=== PATIENT | male | born 1945 | race Caucasian/White ===

== ENCOUNTER → 2021-10-25 | Outpatient (CLI) | payer MEDICARE, OTHER ==
--- NOTE | 2021-10-25 08:45 | CT ---
EXAMINATION TYPE: CT chest wo con DATE OF EXAM: 10/25/2021 COMPARISON: 10/31/2019 HISTORY: 76-year-old male abnormal findings on xray, h/o COPD, cough TECHNIQUE: Contiguous axial scanning of the chest without IV contrast. Coronal and sagittal reconstru ctions performed. CT DLP: 585 mGycm Automated exposure control for dose reduction was used. FINDINGS: Heart normal size with trace anterior basilar pericardial thickening. LAD and RCA coronary artery brigitte cifications are present. Aortic root is ectatic at 3.6 cm. Ascending aorta ectatic and 3.7 cm. Moderate atherosclerotic arch c alcifications with conventional arch. Branching anatomy. A few scattered nonenlarged mediastinal lymph nodes measuring up to 7 mm. Moderate to advanced centrilobular emphysema. Minimal biapical pleural parenchymal scarring. There is some patchy opacity posterior right lower lobe and additional mild scattered patchy peripheral groun dglass changes in the left lower lobe. Mild strandy secretions or debris within the right mainstem br onchus. Tiny hiatal hernia. Moderate atherosclerotic calcifications persist into the upper abdominal aorta. S pleen mildly enlarged at 14.0 cm. Bones: Osteopenia with mild degenerative disc disease. Some breathing motion artifact along the anter ior upper chest. Chronic fracture deformity surgical neck proximal right humerus. IMPRESSION: 1. COPD WITH MODERATE TO ADVANCED EMPHYSEMA. 2. MILD PATCHY AIRSPACE DISEASE POSTERIOR RIGHT BASE COULD REPRESENT DEVELOPING PNEUMONIA. 3. ALSO, PATCHY GROUNDGLASS IN THE PERIPHERY OF THE LEFT LOWER LOBE. DIFFERENTIAL CONSIDERATIONS INCL UDE MILD ASPIRATION, CHRONIC INTERSTITIAL SCARRING, OR INTERSTITIAL PNEUMONITIS SUCH NSIP OR DIP. CONSIDER FOLLOW-UP IN 3 MONTHS TO REASSESS. 4. CAD WITH LAD AND RCA CORONARY ARTERY CALCIFICATIONS.
== END | disposition home or self-care (01) ==
LOC: RADCTMAIN 06:51
PROVIDERS: ATTEND Family Medicine
DX: R93.89 Abnormal findings on diagnostic imaging of other specified body structures (principal); J43.9 Emphysema, unspecified; I25.10 Atherosclerotic heart disease of native coronary artery without angina pectoris
CPT/HCPCS: 71250

== ENCOUNTER → 2023-08-26 | Outpatient (CLI) | payer MEDICARE ==
--- NOTE | 2023-08-26 21:17 | US ---
EXAMINATION TYPE: US thyroid st tissue head/neck DATE OF EXAM: 08/26/2023 COMPARISON: NONE CLINICAL INDICATION: Male, 78 years old with history of R221 LOCALIZED SWELLING, MASS AND LUMP; 78 ye ar old said his daughter thought his neck looked swollen, no h/o thyroid issues or any medications fo r thyroid Soft tissue scan of bilateral thyroid beds yielded no thyroid tissue seen. No other abnormalities see n. IMPRESSION: 1. No suspicious ultrasound tissue. No masses are evident.
== END | disposition home or self-care (01) ==
LOC: RADUSWWP 15:24
PROVIDERS: ATTEND Family Medicine
DX: R22.1 Localized swelling, mass and lump, neck (principal)
CPT/HCPCS: 76536

== ENCOUNTER 2023-09-14 08:38 | Inpatient (IN) | payer MEDICARE ==
[2023-09-14] MEDS: SODIUM CHLORIDE 0.9% 1,000 ML IV STA (08:58)
[2023-09-14] MEDS: methylPREDNISolone SOD SUCCI 125 MG/2 ML VIAL IV STA (09:00)
[2023-09-14] MEDS: MAGNESIUM SULFATE-D5W PMX 1 GM in DEXTROSE/WATER 1 100ML.BAG IVPB STA (09:00)
[2023-09-14 09:19] LABS: Basophils % (A) 0 %; Eosinophils % (A) 0 %; HGB 13.5 gm/dL (13.0-17.5); Hyperchromasia Slight; Lymphocytes # (A) 0.8 k/uL (1.0-4.8); Lymphocytes % (A) 8 %; MCH 31.5 pg (25.0-35.0); MCHC 34.5 g/dL (31.0-37.0); MCV 91.3 fL (80.0-100.0); Mean Platelet Volume 8.5; Monocytes # (A) 0.4 k/uL (0-1.0); Monocytes % (A) 4 %; Neutrophils # (A) 8.8 k/uL (1.3-7.7); Neutrophils % (A) 86 %; Platelet Count 112 k/uL (150-450); Poikilocytosis Slight; RBC 4.27 m/uL (4.30-5.90); RDW 15.4 % (11.5-15.5); WBC 10.2 k/uL (3.8-10.6)
--- NOTE | 2023-09-14 09:33 | XR ---
EXAMINATION TYPE: XR chest 2V DATE OF EXAM: 09/14/2023 COMPARISON: NONE TECHNIQUE: PA and lateral views submitted. HISTORY: Shortness of breath FINDINGS: The lungs are clear and there is no pneumothorax, pleural effusion, or focal pneumonia. Heart size normal and no overt failure. Osseous structures demonstrate hypertrophic and degenerative changes of the spine. Diffuse osteopenia remote trauma to the right humerus. Arthropathy of the shoulders. Under lying COPD. Subsegmental changes left lung base. IMPRESSION: 1. COPD favor left basilar atelectasis over infiltrate.
[2023-09-14 09:34] LABS: ALT 23 U/L (4-49); AST 26 U/L (17-59); African American GFR (CKD) >90 (>60 ml/min/1.73 sqM); Albumin 3.5 g/dL (3.5-5.0); Alkaline Phosphatase 83 U/L (38-126); Anion Gap 7 mmol/L; Blood Urea Nitrogen 32 mg/dL (9-20); Calcium 8.5 mg/dL (8.4-10.2); Carbon Dioxide 27 mmol/L (22-30); Chloride 103 mmol/L (98-107); Glucose 92 mg/dL (74-99); Magnesium 1.9 mg/dL (1.6-2.3); Non-African American GFR(CKD) 86 (>60 ml/min/1.73 sqM); Potassium 3.5 mmol/L (3.5-5.1); Sodium 137 mmol/L (137-145); Total Bilirubin 1.5 mg/dL (0.2-1.3)
[2023-09-14 09:41] LABS: INR 0.9 (<1.2); NT-Pro-B-Type Natriuretic Pept 1050 pg/mL; Prothrombin Time 10.5 sec (10.0-12.5)
[2023-09-14 10:02] LABS: Partial Thromboplastin Time 21.5 sec (22.0-30.0)
[2023-09-14] MEDS ORDERED: PNEUMONIA PROTOCOL UTILIZED 1 EACH MISC PO PRN (10:14)
[2023-09-14] MEDS ORDERED: NALOXONE 0.4 MG/ML 1 ML VIAL IV PRN (10:21)
[2023-09-14] MEDS ORDERED: ACETAMINOPHEN TAB 325 MG TAB PO PRN (10:21)
--- NOTE | 2023-09-14 10:21 | ED ---
General Adult HPI - General Chief complaint: Shortness of Breath Stated complaint: SOB Time Seen by Provider: 09/14/23 08:45 Source: patient, EMS, RN notes reviewed, old records reviewed Mode of arrival: EMS Limitations: no limitations - History of Present Illness Initial comments: Patient is an 78-year-old male who presents emergency department complaining of chronic exertional dyspnea, sudden worsening shortness of breath this morning. Has a chronic cough. No worsening production. Denies chest pain, abdominal pain, nausea, vomiting. Has a history of COPD on chronic 3 L nasal cannula. EMS was called this morning for evaluation was found to be saturating the 70%'s by his daughter. Increased shortness of breath. Was brought here for further evaluation. The patient is saturating well on his baseline 3 L nasal cannula. Did receive 2 DuoNeb's prior to arrival. Is resting comfortably. Presents for further evaluation. - Related Data Home Medications Medication Instructions Recorded Confirmed predniSONE 5 mg PO DAILY 08/14/15 09/14/23 Albuterol Nebulized [Ventolin 2.5 mg INHALATION RT-QID 09/14/23 09/14/23 Nebulized] Albuterol Sulfate [Albuterol 2 puff PO RT-Q4H PRN 09/14/23 09/14/23 Sulfate Hfa] Budesonide/Formoterol Fumarate 2 puff INHALATION RT-BID 09/14/23 09/14/23 [Symbicort 160-4.5 Mcg Inhaler] Ipratropium Nebulized [Atrovent 0.5 mg INHALATION RT-QID 09/14/23 09/14/23 Nebulized 0.2 MG/ML] Tamsulosin HCl [Flomax] 0.4 mg PO BID 09/14/23 09/14/23 atenoloL 25 mg PO BID 09/14/23 09/14/23 metFORMIN HCL [Glucophage] 500 mg PO BID 09/14/23 09/14/23 Allergies Allergy/AdvReac Type Severity Reaction Status Date / Time No Known Allergies Allergy Verified 09/14/23 10:58 Review of Systems ROS Statement: Those systems with pertinent positive or pertinent negative responses have been documented in the HPI. Review of Systems: CONST: Denies fever EYES: Denies blurry vision ENT: Denies nasal congestion C/V: Denies Chest pain RESP: Endorses cough, shortness of breath GI: Denies abdominal pain : Denies dysuria SKIN: Denies rash. MSK: Denies joint pain. NEURO: Denies headache ROS Other: All systems not noted in ROS Statement are negative. Past Medical History Past Medical History: COPD, Hypertension Additional Past Medical History / Comment(s): HOME 02 2 l prnMUR[facility](WHEN PT WAS IN HIGH SCHOOL),"HEAT STROKE" History of Any Multi-Drug Resistant Organisms: None Reported Past Surgical History: No Surgical Hx Reported Additional Past Surgical History / Comment(s): NO REPORTED SX. Past Anesthesia/Blood Transfusion Reactions: No Reported Reaction Past Psychological History: Depression Smoking Status: Former smoker Past Alcohol Use History: Occasional Past Drug Use History: None Reported - Past Family History Brother(s) Family Medical History: Cancer General Exam - General Exam Comments Initial Comments: General: Appears in no acute distress. HEAD: Normal with no signs of head trauma. EYES: PERRLA, EOMI, conjunctiva normal, no discharge. ENT: Hearing grossly intact, normal oropharynx. RESPIRATORY: Bilateral end expiratory wheezing. Increased work of breathing. Normoxic on baseline 3 L nasal cannula of oxygen. C/V: Regular rate and rhythm. S1 and S2 auscultated, no significant peripheral edema, peripheral pulses 2+ and intact throughout ABD: Abd is soft, nontender, nondistended EXT: Normal range of motion, no obvious deformity SKIN: No rashes or lesions observed on exposed skin. NEURO: Alert and oriented x 4. Limitations: no limitations Course Vital Signs 09/14/23 09/14/23 09/14/23 08:39 09:04 10:06 Temperature 97.7 F Pulse Rate 99 93 81 Respiratory 28 H 20 17 Rate Blood Pressure 120/65 112/59 119/68 O2 Sat by Pulse 97 97 99 Oximetry 09/14/23 09/14/23 09/14/23 10:34 10:43 11:19 Temperature Pulse Rate 82 82 86 Respiratory 18 Rate Blood Pressure 124/66 O2 Sat by Pulse 99 Oximetry 09/14/23 09/14/23 09/14/23 13:49 14:05 15:05 Temperature Pulse Rate 84 85 87 Respiratory 18 Rate Blood Pressure 103/57 O2 Sat by Pulse 98 Oximetry Medical Decision Making - Medical Decision Making Was pt. sent in by a medical professional or institution (, PA, [employer], urgent care, hospital, or penitentiary...) When possible be specific @ -No Did you speak to anyone other than the patient for history (EMS, parent, family, police, friend...)? What history was obtained from this source @ -No Did you review nursing and triage notes (agree or disagree)? Why? @ -I reviewed and agree with nursing and triage notes Were old charts reviewed (outside hosp., previous admission, EMS record, old EKG, old radiological studies, urgent care reports/EKG's, penitentiary records)? Report findings @ -Old charts reviewed Differential Diagnosis (chest pain, altered mental status, abdominal pain women, abdominal pain men, vaginal bleeding, weakness, fever, dyspnea, syncope, headache, dizziness, GI bleed, back pain, seizure, CVA, palpatations, mental health, musculoskeletal)? @ -Differential Dyspnea: Coronary syndrome, arrhythmia, tamponade, asthma, COPD, pulmonary embolism, pneumonia, pneumothorax, pulmonary effusion, anaphylaxis, diabetic ketoacidosis, flailed chest, pulmonary contusion, diaphragmatic rupture, anemia, neuromuscular, this is not meant to be an all-inclusive list. EKG interpreted by me (3pts min.). @ -As above X-rays interpreted by me (1pt min.). @ -Chest x-ray reveals findings concerning for left lower lobe basilar infiltra te. CT interpreted by me (1pt min.). @ -None done U/S interpreted by me (1pt. min.). @ -None done What testing was considered but not performed or refused? (CT, X-rays, U/S, labs)? Why? @ -None What meds were considered but not given or refused? Why? @ -None Did you discuss the management of the patient with other professionals (professionals i.e. GASTON Damon, [employer], lab, RT, psych nurse, director social service, rn mds, teacher, chief scientific officer, case assistant)? Give summary @ -No Was smoking cessation discussed for >3mins.? @ -No Was critical care preformed (if so, how long)? @ -No Were there social determinants of health that impacted care today? How? (Homelessness, low income, unemployed, alcoholism, drug addiction, transportation, low edu. Level, literacy, decrease access to med. care, fdc, rehab)? @ -No Was there de-escalation of care discussed even if they declined (Discuss DNR or withdrawal of care, Hospice)? DNR status @ -No What co-morbidities impacted this encounter? (DM, HTN, Smoking, COPD, CAD, Cancer, CVA, ARF, Chemo, Hep., AIDS, mental health diagnosis, sleep apnea, morbid obesity)? @ -Chronic hypoxic respiratory failure, COPD exacerbation Was patient admitted / discharged? Hospital course, mention meds given and route, prescriptions, significant lab abnormalities, going to OR and other pertinent info. @ -Based on the patient's presentation and physical exam, presents with what appears to be COPD versus possible pneumonia, will obtain cardiopulmonary labs. Vital signs currently within acceptable limits on his baseline 3 L nasal cannula. Patient was in agreement this plan. He will be symptomatically treated with IV steroids, breathing treatments. Chest x-ray shows findings concerning for left lower lobe pneumonia. Labs remarkable for slightly elevated troponin of 0.088 likely secondary to underlying COPD. BNP within acceptable limits. Viral swabs within acceptable limits. EKG shows no signs of acute ischemia. Reevaluation, patient is resting comfortably at this time. We did discuss his workup. He will be started on antibiotics for pneumonia. Blood culture sent. He will be admitted for cardiology evaluation as well as pulmonology evaluation. Will continue with breathing treatments IV steroids. Patient was in agreement this plan. I discussed the case with the admitting team, Dr. Chanel of [facility] who accepted the admission. Undiagnosed new problem with uncertain prognosis? @ -No Drug Therapy requiring intensive monitoring for toxicity (Heparin, Nitro, Insulin, Cardizem)? @ -No Were any procedures done? @ -No Diagnosis/symptom? @ -COPD, pneumonia, elevated troponin Acute, or Chronic, or Acute on Chronic? @ -Acute Uncomplicated (without systemic symptoms) or Complicated (systemic symptoms)? @ -Complicated Side effects of treatment? @ -No Exacerbation, Progression, or Severe Exacerbation? @ -No Poses a threat to life or bodily function? How? (Chest pain, [place], [place], pneumonia, PE, COPD, DKA, ARF, appy, cholecystitis, CVA, Diverticulitis, Homicidal, Suicidal, threat to staff... and all critical care pts) @ -Yes - Lab Data Result diagrams: 09/14/23 09:04 05/06/24 09:04 Lab Results 09/14/23 09/14/23 09/14/23 Range/Units 09:04 09:04 09:04 WBC 10.2 (3.8-10.6) k/uL RBC 4.27 L (4.30-5.90) m/uL Hgb 13.5 (13.0-17.5) gm/dL Hct 39.0 (39.0-53.0) % MCV 91.3 (80.0-100.0) fL MCH 31.5 (25.0-35.0) pg MCHC 34.5 (31.0-37.0) g/dL RDW 15.4 (11.5-15.5) % Plt Count 112 L (150-450) k/uL MPV 8.5 Neutrophils % 86 % Lymphocytes % 8 % Monocytes % 4 % Eosinophils % 0 % Basophils % 0 % Neutrophils # 8.8 H (1.3-7.7) k/uL Lymphocytes # 0.8 L (1.0-4.8) k/uL Monocytes # 0.4 (0-1.0) k/uL Eosinophils # 0.0 (0-0.7) k/uL Basophils # 0.0 (0-0.2) k/uL Hyperchromasia Slight Poikilocytosis Slight PT 10.5 (10.0-12.5) sec INR 0.9 (<1.2) APTT 21.5 L (22.0-30.0) sec Sodium 137 (137-145) mmol/L Potassium 3.5 (3.5-5.1) mmol/L Chloride 103 (98-107) mmol/L Carbon Dioxide 27 (22-30) mmol/L Anion Gap 7 mmol/L BUN 32 H (9-20) mg/dL Creatinine 0.78 (0.66-1.25) mg/dL Est GFR (CKD-EPI)AfAm >90 (>60 ml/min/1.73 sqM) Est GFR (CKD-EPI)NonAf 86 (>60 ml/min/1.73 sqM) Glucose 92 (74-99) mg/dL Calcium 8.5 (8.4-10.2) mg/dL Magnesium 1.9 (1.6-2.3) mg/dL Total Bilirubin 1.5 H (0.2-1.3) mg/dL AST 26 (17-59) U/L ALT 23 (4-49) U/L Alkaline Phosphatase 83 (38-126) U/L Troponin I (0.000-0.034) ng/mL NT-Pro-B Natriuret Pep 1050 pg/mL Total Protein 6.0 L (6.3-8.2) g/dL Albumin 3.5 (3.5-5.0) g/dL Influenza Type A (PCR) (Not Detectd) Influenza Type B (PCR) (Not Detectd) RSV (PCR) (Not Detectd) SARS-CoV-2 (PCR) (Not Detectd) 09/14/23 09/14/23 Range/Units 09:04 09:04 WBC (3.8-10.6) k/uL RBC (4.30-5.90) m/uL Hgb (13.0-17.5) gm/dL Hct (39.0-53.0) % MCV (80.0-100.0) fL MCH (25.0-35.0) pg MCHC (31.0-37.0) g/dL RDW (11.5-15.5) % Plt Count (150-450) k/uL MPV Neutrophils % % Lymphocytes % % Monocytes % % Eosinophils % % Basophils % % Neutrophils # (1.3-7.7) k/uL Lymphocytes # (1.0-4.8) k/uL Monocytes # (0-1.0) k/uL Eosinophils # (0-0.7) k/uL Basophils # (0-0.2) k/uL Hyperchromasia Poikilocytosis PT (10.0-12.5) sec INR (<1.2) APTT (22.0-30.0) sec Sodium (137-145) mmol/L Potassium (3.5-5.1) mmol/L Chloride (98-107) mmol/L Carbon Dioxide (22-30) mmol/L Anion Gap mmol/L BUN (9-20) mg/dL Creatinine (0.66-1.25) mg/dL Est GFR (CKD-EPI)AfAm (>60 ml/min/1.73 sqM) Est GFR (CKD-EPI)NonAf (>60 ml/min/1.73 sqM) Glucose (74-99) mg/dL Calcium (8.4-10.2) mg/dL Magnesium (1.6-2.3) mg/dL Total Bilirubin (0.2-1.3) mg/dL AST (17-59) U/L ALT (4-49) U/L Alkaline Phosphatase (38-126) U/L Troponin I 0.088 H* (0.000-0.034) ng/mL NT-Pro-B Natriuret Pep pg/mL Total Protein (6.3-8.2) g/dL Albumin (3.5-5.0) g/dL Influenza Type A (PCR) Not Detected (Not Detectd) Influenza Type B (PCR) Not Detected (Not Detectd) RSV (PCR) Not Detected (Not Detectd) SARS-CoV-2 (PCR) Not Detected (Not Detectd) - EKG Data -: EKG Interpreted by Me EKG Comments: 12-lead Electrocardiogram Interpretation Note EKG was reviewed and interpreted by myself. 12-lead ECG performed at 0847 is interpreted by me as revealing normal sinus rhythm at a rate of 95 beats per minute. Incomplete right bundle branch block. [place] is normal. AL interval is 138 ms, QRS duration is 114 ms, QTc is 407 ms.. There were no ST or T wave abnormalities to suggest myocardial ischemia or injury. R wave progression across the precordium was satisfactory. By my interpretation this EKG is non- diagnostic for acute ischemia. Disposition Clinical Impression: COPD (chronic obstructive pulmonary disease), Pneumonia, Elevated troponin Disposition: ADMITTED IP TO THIS HOSP Condition: Stable Time of Disposition: 10:21
[2023-09-14] MEDS: IPRATROPIUM-ALBUTEROL 3 ML NEB INHALATION STA (10:30)
[2023-09-14] MEDS: SODIUM CHLORIDE 0.9% 1,000 ML IV SCH (10:39)
[2023-09-14] MEDS: ASPIRIN 81 MG PO STA (10:40)
[2023-09-14] MEDS: AZITHROMYCIN 500 MG in SODIUM CHLORIDE 0.9% 250 ML IVPB STA (11:18)
[2023-09-14] MEDS ORDERED: NALOXONE 0.4 MG/ML 1 ML VIAL IVP PRN ×2 (11:38→11:39)
[2023-09-14] MEDS ORDERED: NITROGLYCERIN SL TABS 0.4 MG TAB SUBLINGUAL PRN (11:39)
[2023-09-14] MEDS: ATORVASTATIN 80 MG TAB PO SCH (12:00)
[2023-09-14 13:16] LABS: Appearance,Urine Cloudy (Clear); Bilirubin,Urine Negative (Negative); Blood,Urine Trace (Negative); Color,Urine Yellow; Glucose,Urine (UA) Negative (Negative); Ketones,Urine 1+ (Negative); Leukocyte Esterase,Urine Large (Negative); Mucus,Urine Rare /hpf; Nitrite,Urine Negative (Negative); PH, Urine 5.5 (5.0-8.0); Protein,Urine Trace (Negative); RBC,Urine 1 /hpf (0-5); Specific Gravity,Urine 1.023 (1.001-1.035); Squamous Epithelial Cell,Urine 1 /hpf (0-4); Urobilinogen,Urine <2.0 mg/dL (<2.0); WBC,Urine 56 /hpf (0-5)
[2023-09-14] MEDS: IPRATROPIUM-ALBUTEROL 3 ML NEB INHALATION PRN (13:49)
--- NOTE | 2023-09-14 14:15 | P.CNPUL ---
History of Present Illness Consult date: 09/14/23 Requesting physician: Jeremy Chanel Reason for consult: dyspnea, COPD, hypoxemia Chief complaint: Shortness of breath History of present illness: This is an 78-year-old male patient with a known history of chronic obstructive pulmonary disease, former smoker, hypertension, depression, diabetes mellitus, on home oxygen at 3 L nasal cannula. Who presented to the emergency room earlier this morning with complaints of increasing shortness of breath, cough and congestion over the past 2 weeks. He also has dyspnea on exertion. His O2 saturations were in the 70s by his daughter and EMS was called. He is seen today in consultation in the emergency department. Currently sitting up on a s tretcher. Awake and alert in no acute distress. He is maintaining O2 saturations up to 99% on 3 L/min per nasal cannula. He has been afebrile. Hemodynamically stable. X-ray of reveals evidence of COPD and left basilar atelectasis. White count 10.2. Hemoglobin 13.5. Platelets 112. Sodium 137. Potassium 3.5. Bicarb 27. BUN 32. Creatinine 0.78. Troponin 0.088, 0.071. proBNP 1050. Viral screen negative. Review of Systems REVIEW OF SYSTEMS: CONSTITUTIONAL: Denies any recent significant weight loss or weight gain. EYES: Denies change in vision. EARS, NOSE, MOUTH, THROAT: Denies headaches, denies sore throat. CARDIOVASCULAR: Denies chest pain, palpitations or syncopal episodes. RESPIRATORY: Positive for shortness of breath, cough, congestion no hemoptysis. GASTROINTESTINAL: Denies change in appetite, denies abdominal pain GENITOURINARY: Denies hematuria, denies infections. MUSKULOSKELETAL: Denies pain, denies swelling. INTEGUMENTARY: Denies rash, denies eczema. NEUROLOGICAL: Denies recent memory loss, no recent seizure activity. PSYCHIATRIC: Denies anxiety, denies depression. HEMATOLOGIC/LYMPHATIC: Denies anemia, denies enlarged lymph nodes. Past Medical History Past Medical History: COPD, Hypertension Additional Past Medical History / Comment(s): HOME 02 2 l prnM[facility](WHEN PT WAS IN HIGH SCHOOL),"HEAT STROKE" 1970 History of Any Multi-Drug Resistant Organisms: None Reported Past Surgical History: No Surgical Hx Reported Additional Past Surgical History / Comment(s): NO REPORTED SX. Past Anesthesia/Blood Transfusion Reactions: No Reported Reaction Past Psychological History: Depression Smoking Status: Former smoker Past Alcohol Use History: Occasional Past Drug Use History: None Reported - Past Family History Brother(s) Family Medical History: Cancer Medications and Allergies Home Medications Medication Instructions Recorded Confirmed Type predniSONE 5 mg PO DAILY 08/14/15 09/14/23 History Albuterol Nebulized [Ventolin 2.5 mg INHALATION RT-QID 09/14/23 09/14/23 History Nebulized] Albuterol Sulfate [Albuterol 2 puff PO RT-Q4H PRN 09/14/23 09/14/23 History Sulfate Hfa] Budesonide/Formoterol Fumarate 2 puff INHALATION RT-BID 09/14/23 09/14/23 History [Symbicort 160-4.5 Mcg Inhaler] Ipratropium Nebulized [Atrovent 0.5 mg INHALATION RT-QID 09/14/23 09/14/23 History Nebulized 0.2 MG/ML] Tamsulosin HCl [Flomax] 0.4 mg PO BID 09/14/23 09/14/23 History atenoloL 25 mg PO BID 09/14/23 09/14/23 History metFORMIN HCL [Glucophage] 500 mg PO BID 09/14/23 09/14/23 History Allergies Allergy/AdvReac Type Severity Reaction Status Date / Time No Known Allergies Allergy Verified 09/14/23 10:58 Physical Exam Vitals: Vital Signs Temp Pulse Resp BP Pulse Ox 09/14/23 14:05 85 09/14/23 13:49 84 09/14/23 11:19 86 18 124/66 99 09/14/23 10:43 82 09/14/23 10:34 82 09/14/23 10:06 81 17 119/68 99 09/14/23 09:04 93 20 112/59 97 09/14/23 08:39 97.7 F 99 28 H 120/65 97 Intake and Output 09/13/23 09/14/23 09/14/23 22:59 06:59 14:59 Other: Weight 61.235 kg GENERAL EXAM: Alert, 78-year-old male patient on 3 L nasal cannula, comfortable in no apparent distress. HEAD: Normocephalic. EYES: Normal reaction of pupils, equal size. NOSE: Clear with pink turbinates. THROAT: No erythema or exudates. NECK: No masses, no JVD. CHEST: No chest wall deformity. LUNGS: Equal air entry with bilateral end expiratory wheeze, few scattered rhonchi. CVS: S1 and S2 normal with no audible murmur, regular rhythm. ABDOMEN: No hepatosplenomegaly, normal bowel sounds, no guarding or rigidity. SPINE: No scoliosis or deformity SKIN: No rashes CENTRAL NERVOUS SYSTEM: No focal deficits, tone is normal in all 4 extremities. EXTREMITIES: There is no peripheral edema. No clubbing, no cyanosis. Peripheral pulses are intact. Results - Laboratory Findings CBC and BMP: 09/14/23 09:04 09/14/23 09:04 PT/INR, D-dimer PT 10.5 sec (10.0-12.5) 09/14/23 09:04 INR 0.9 (<1.2) 09/14/23 09:04 Abnormal lab findings: Abnormal Labs 09/14/23 09/14/23 09/14/23 09:04 09:04 09:04 RBC 4.27 L Plt Count 112 L Neutrophils # 8.8 H Lymphocytes # 0.8 L APTT 21.5 L BUN 32 H Total Bilirubin 1.5 H Troponin I Total Protein 6.0 L Urine Protein Urine Ketones Urine Blood Ur Leukocyte Esterase Urine WBC Urine Mucus 09/14/23 09/14/23 09/14/23 09:04 11:35 12:39 RBC Plt Count Neutrophils # Lymphocytes # APTT BUN Total Bilirubin Troponin I 0.088 H* 0.071 H* Total Protein Urine Protein Trace H Urine Ketones 1+ H Urine Blood Trace H Ur Leukocyte Esterase Large H Urine WBC 56 H Urine Mucus Rare H - Diagnostic Findings Chest x-ray: image reviewed Assessment and Plan Assessment: Acute on chronic hypoxic respiratory failure secondary to an acute exacerbation of chronic obstructive pulmonary disease. Chest x-ray reveals some atelectatic changes in the left lung base. Procalcitonin pending. Viral screen negative. Former smoker Oxygen dependent, steroid-dependent COPD Diabetes mellitus Hypertension Plan: The patient was seen and evaluated Chest x-ray, labs and medications reviewed Continue DuoNeb inhalations, Symbicort, prednisone taper Continue antibiotics for now Check a procalcitonin Heparin for DVT prophylaxis We will continue to follow and make further recommendations based on his clinical status I have personally seen and examined the patient, performed the documentation and the assessment and plan as written. Number of minutes spent on the visit: 20.
--- NOTE | 2023-09-14 18:05 | P.HPIM ---
History of Present Illness H&P Date: 09/14/23 Chief Complaint: dyspnea on exertion 78-year-old male with medical history of COPD with chronic respiratory failure requiring 3 to 4 L nasal cannula, diabetes, BPH presented for evaluation of dyspnea. Patient says that for the last 2 weeks she has had worsening shortness of breath, especially during exertion. Additionally, in the last 2 months he has had a 20 pound weight loss unintentionally. Patient denies any chest pain associated with shortness of breath. He denies palpitations. He does report to me that he has been seen outpatient by cardiology for workup of heart disease, and underwent stress testing, which she does not know the results. Patient follows with pulmonology for COPD and has remained stable on his home nebulizers. Today, he denies fevers, chills, nausea, vomiting, chest pain, palpitations, syncope, presyncope, myalgias, numbness/weakness of extremities. In the emergency room, patient was afebrile 120/65, heart rate 99, breathing at a rate of 28, 97% on 3 L nasal cannula. CBC shows thrombocytopenia down to 112, otherwise unremarkable. Basic metabolic panel is notable for elevated BUN at 32, normal creatinine. Liver function test show mildly elevated total bilirubin of 1.5. Initial troponin is 0.088 then trended to 0.071 then trended to 0.074. UA shows trace protein, 1+ glucose, trace ketones, large leukocyte esterase, 56 white blood cells. Influenza A, B, RSV, COVID were negative. Coags are unremarkable. Chest x-ray shows creased vascularity bilaterally, especially in a reticular pattern, fluid in the minor fissure on the right side normal-sized heart. EKG demonstrated sinus rhythm with evidence of right bundle mariel block. Case was discussed with the emergency room provider and the decision was made to meet the patient to the hospital for further management of COPD exacerbation versus heart failure. All Systems reviewed and pertinent positives and negatives noted in HPI, all other symptoms are negative Gen: in no apparent distress, resting comfortably in bed Eyes: PERRL, no scleral injection or icterus HENT: normocephalic, atraumatic, good hearing acuity, moist mucous membranes Neck: no tracheal deviation, full range of motion Resp: Bilateral wheezing, especially at the end of expiration, crackles in the bases bilaterally, and up to mid chest on the right CVS: good distal perfusion x 4, no pitting edema GI: soft, NTTP, ND, no hepatosplenomegaly : no suprapubic tenderness, no CVAT, flores catheter not present MSK: no clubbing, no cyanosis, no noted contractures of extremities Skin: no noted rashes, petechiae; temperature of skin is appropriate Neuro: moving all extremities without signs of weakness, CN II-XII intact Psych: cooperative, euthymic mood, insight and judgment intact Labs and imaging as above Assessment/plan: Acute on chronic hypoxemic respiratory failure COPD exacerbation Elevated BNP Elevated troponin -Patient was admitted as an inpatient with telemetry -Cardiology was consulted, evaluation of ACS -Aspirin, atorvastatin, metoprolol was started: Home atenolol was held -Troponins were trended and remained flat -TSH, lipid panel, A1c were added on to a.m. lab work -Echocardiogram order was placed -DuoNebs [id number] with additional as needed medication -Prednisone 40 mg daily -Pulmonology was consulted -Ceftriaxone/azithromycin was initiated with procalcitonin pending for early de- escalation Diabetes type 2 BPH -Home medications reviewed and reconciled Patient is DNR/DNI Past Medical History Past Medical History: COPD, Hypertension Additional Past Medical History / Comment(s): HOME 02 2 l prnMURMUR(WHEN PT WAS IN HIGH SCHOOL),"HEAT STROKE" 1970 History of Any Multi-Drug Resistant Organisms: None Reported Past Surgical History: No Surgical Hx Reported Additional Past Surgical History / Comment(s): NO REPORTED SX. Past Anesthesia/Blood Transfusion Reactions: No Reported Reaction Past Psychological History: Depression Smoking Status: Former smoker Past Alcohol Use History: Occasional Past Drug Use History: None Reported - Past Family History Brother(s) Family Medical History: Cancer Medications and Allergies Home Medications Medication Instructions Recorded Confirmed Type predniSONE 5 mg PO DAILY 08/14/15 09/14/23 History Albuterol Nebulized [Ventolin 2.5 mg INHALATION RT-QID 09/14/23 09/14/23 History Nebulized] Albuterol Sulfate [Albuterol 2 puff PO RT-Q4H PRN 09/14/23 09/14/23 History Sulfate Hfa] Budesonide/Formoterol Fumarate 2 puff INHALATION RT-BID 09/14/23 09/14/23 History [Symbicort 160-4.5 Mcg Inhaler] Ipratropium Nebulized [Atrovent 0.5 mg INHALATION RT-QID 09/14/23 09/14/23 History Nebulized 0.2 MG/ML] Tamsulosin HCl [Flomax] 0.4 mg PO BID 09/14/23 09/14/23 History atenoloL 25 mg PO BID 09/14/23 09/14/23 History metFORMIN HCL [Glucophage] 500 mg PO BID 09/14/23 09/14/23 History Allergies Allergy/AdvReac Type Severity Reaction Status Date / Time No Known Allergies Allergy Verified 09/14/23 10:58 Physical Exam Osteopathic Statement: *. No significant issues noted on an osteopathic structural exam other than those noted in the History and Physical/Consult. Vitals: Vital Signs Temp Pulse Resp BP Pulse Ox 09/14/23 15:05 87 18 103/57 98 09/14/23 14:05 85 09/14/23 13:49 84 09/14/23 11:19 86 18 124/66 99 09/14/23 10:43 82 09/14/23 10:34 82 09/14/23 10:06 81 17 119/68 99 09/14/23 09:04 93 20 112/59 97 09/14/23 08:39 97.7 F 99 28 H 120/65 97 Intake and Output 09/14/23 09/14/23 09/14/23 06:59 14:59 22:59 Other: Weight 61.235 kg Results CBC & Chem 7: 09/14/23 09:04 09/14/23 09:04 Labs: Abnormal Lab Results - Last 24 Hours (Table) 09/14/23 09/14/23 09/14/23 Range/Units 09:04 09:04 09:04 RBC 4.27 L (4.30-5.90) m/uL Plt Count 112 L (150-450) k/uL Neutrophils # 8.8 H (1.3-7.7) k/uL Lymphocytes # 0.8 L (1.0-4.8) k/uL APTT 21.5 L (22.0-30.0) sec BUN 32 H (9-20) mg/dL Total Bilirubin 1.5 H (0.2-1.3) mg/dL Troponin I (0.000-0.034) ng/mL Total Protein 6.0 L (6.3-8.2) g/dL Urine Protein (Negative) Urine Ketones (Negative) Urine Blood (Negative) Ur Leukocyte Esterase (Negative) Urine WBC (0-5) /hpf Urine Mucus (None) /hpf 09/14/23 09/14/23 09/14/23 Range/Units 09:04 11:35 12:39 RBC (4.30-5.90) m/uL Plt Count (150-450) k/uL Neutrophils # (1.3-7.7) k/uL Lymphocytes # (1.0-4.8) k/uL APTT (22.0-30.0) sec BUN (9-20) mg/dL Total Bilirubin (0.2-1.3) mg/dL Troponin I 0.088 H* 0.071 H* (0.000-0.034) ng/mL Total Protein (6.3-8.2) g/dL Urine Protein Trace H (Negative) Urine Ketones 1+ H (Negative) Urine Blood Trace H (Negative) Ur Leukocyte Esterase Large H (Negative) Urine WBC 56 H (0-5) /hpf Urine Mucus Rare H (None) /hpf 09/14/23 Range/Units 14:12 RBC (4.30-5.90) m/uL Plt Count (150-450) k/uL Neutrophils # (1.3-7.7) k/uL Lymphocytes # (1.0-4.8) k/uL APTT (22.0-30.0) sec BUN (9-20) mg/dL Total Bilirubin (0.2-1.3) mg/dL Troponin I 0.074 H* (0.000-0.034) ng/mL Total Protein (6.3-8.2) g/dL Urine Protein (Negative) Urine Ketones (Negative) Urine Blood (Negative) Ur Leukocyte Esterase (Negative) Urine WBC (0-5) /hpf Urine Mucus (None) /hpf
[2023-09-14] MEDS: SYMBICORT 160-4.5 MCG INHALER INHALATION SCH (20:09)
[2023-09-14] MEDS ORDERED: methylPREDNISolone SOD SUCCI 40 MG/ML 1 ML VIAL IV SCH (21:00)
[2023-09-14] MEDS: HEPARIN SODIUM,PORCINE 5,000 UNIT/ML 1 ML VIAL SQ SCH (21:49)
[2023-09-14] MEDS: TAMSULOSIN 0.4 MG CAP.ER.24H PO SCH (21:49)
[2023-09-14] MEDS: METOPROLOL TARTRATE 12.5 MG TAB PO SCH (21:49)
[2023-09-15 04:05] LABS: Magnesium 2.3 mg/dL (1.6-2.3)
[2023-09-15 04:07] LABS: ALT 23 U/L (4-49); AST 27 U/L (17-59); African American GFR (CKD) >90 (>60 ml/min/1.73 sqM); Albumin 2.7 g/dL (3.5-5.0); Alkaline Phosphatase 72 U/L (38-126); Anion Gap 8 mmol/L; Blood Urea Nitrogen 28 mg/dL (9-20); Calcium 7.7 mg/dL (8.4-10.2); Carbon Dioxide 20 mmol/L (22-30); Chloride 107 mmol/L (98-107); Glucose 158 mg/dL (74-99); Non-African American GFR(CKD) >90 (>60 ml/min/1.73 sqM); Sodium 135 mmol/L (137-145); Total Bilirubin 0.6 mg/dL (0.2-1.3); Total Protein 4.9 g/dL (6.3-8.2)
[2023-09-15 04:23] LABS: Basophils % (A) 0 %; Eosinophils % (A) 1 %; HCT 31.6 % (39.0-53.0); HGB 11.1 gm/dL (13.0-17.5); Lymphocytes # (A) 0.4 k/uL (1.0-4.8); Lymphocytes % (A) 9 %; MCH 32.4 pg (25.0-35.0); MCHC 35.3 g/dL (31.0-37.0); MCV 91.9 fL (80.0-100.0); Mean Platelet Volume 9.1; Monocytes # (A) 0.2 k/uL (0-1.0); Monocytes % (A) 4 %; Neutrophils # (A) 4.1 k/uL (1.3-7.7); Neutrophils % (A) 86 %; Poikilocytosis Slight; RBC 3.44 m/uL (4.30-5.90); RDW 15.1 % (11.5-15.5); WBC 4.8 k/uL (3.8-10.6)
[2023-09-15 04:24] LABS: Platelet Count 83 k/uL (150-450)
[2023-09-15 06:05] LABS: T4, Free (Free Thyroxine) 1.07 ng/dL (0.78-2.19)
--- NOTE | 2023-09-15 07:48 | XR ---
EXAMINATION TYPE: XR chest 1V DATE OF EXAM: 09/15/2023 COMPARISON: 09/14/2023 HISTORY: Pneumonia TECHNIQUE: Single frontal view of the chest is obtained. FINDINGS: No pneumothorax. There is a small bilateral pleural effusion.. Heart size normal and no ove rt failure. Osseous structures demonstrate hypertrophic and degenerative changes of the spine. Diffus e osteopenia remote trauma to the right humerus. Arthropathy of the shoulders. Underlying COPD. Subse gmental changes left lung base. IMPRESSION: 1. COPD favor left basilar atelectasis over infiltrate. Interstitial changes may represent chronic adonay ng disease rather than interstitial pneumonitis or venous congestion or
[2023-09-15] MEDS ORDERED: DEXTROSE 50% SYRINGE 50 ML IVP PRN ×2 (08:30)
[2023-09-15] MEDS: ASPIRIN 81 MG PO SCH (09:24)
[2023-09-15] MEDS: AZITHROMYCIN 500 MG TAB PO SCH (09:24)
[2023-09-15] MEDS: predniSONE 20 MG TAB PO SCH (09:24)
[2023-09-15] MEDS: POTASSIUM CHLORIDE ER 20 MEQ TAB.ER PO STA (09:30)
[2023-09-15 09:51] LABS: Chol/HDL Ratio 4.17 Ratio; LDL Cholesterol,Calculated 109.5 mg/dL (0.0-131.0); VLDL Calculation 18.98 mg/dL (5.00-40.00)
[2023-09-15 12:18] LABS: Glucose,Whole Blood 183 mg/dL (70-110)
--- NOTE | 2023-09-15 12:32 | P.CRDCN ---
History of Present Illness Consult date: 09/15/23 Reason for Consult (text): Elevated troponin History of present illness: History of present illness: This is an 86-year-old male patient of Dr. Joseph with past medical history of coronary artery disease based on CT scan, hypertension, dyslipidemia, remote history of tobacco use and dependence, chronic obstructive pulmonary disease, diabetes, chronic hypoxic respiratory failure on home O2 at 3 L. We have been asked to evaluate the patient for elevated troponins. Patient presented to the emergency center due to increasing shortness of breath, cough, congestion that had worsened over the past 1 month and he states that he is "just sick of it." He also has dyspnea on exertion especially with walking no more than 50 feet for several months. His daughter states that he has significant dyspnes with walking 10 feet and seems to be progressing. He denies chest pain at this time and no chest pain with exertion. He states inhalers do not help his symptoms. No fever or chills. + sneezing. His pulse ox at home was in the 70s. Patient is seen today in the emergency center waiting for a bed on the cardiac stepdown unit. He has been started on aspirin, atorvastatin, and Lopressor versus atenolol. EKG sinus rhythm with incomplete right bundle branch block. Chest x-ray: 09/14: COPD. Left basilar atelectasis vs infiltrate. Interstitial changes may represent chronic lung disease rather than interstitial pneumonitis or venous congestion. WBC 4.8, hemoglobin 9.1, platelet count 83. Sodium 135, potassium 3, BUN 28 creatinine 0.68, CO2 20. Blood sugar 158. Troponins 0.088, 0.071 and 0.074. TSH 0.141 with normal free T41.07. Urinalysis large amount of leukoesterase, WBCs 56. Procalcitonin 0.22. Home cardiac medications: Atenolol 25 mg twice daily. Lexiscan Cardiolite stress test performed 02/17/2022 in the office revealed non diagnostic electrocardiographic stress testing response to Lexiscan. Normal myocardial perfusion imaging. No evidence of any stress-induced ischemia. Hyperdynamic left ventricle. Echocardiogram performed on 02/17/2022 in the office revealed EF 50 to 55%. Mild concentric left ventricular hypertrophy. Aortic valve is calcified. Mild mitral regurgitation, mild tricuspid regurgitation. Pulmonary artery systolic pressure of 35 mmHg. Review Of Systems: At the time of my exam: CONSTITUTIONAL: Denies fever or chills. HEENT: Denies blurred vision, vision changes, or eye pain. Denies hemoptysis CARDIOVASCULAR: Denies chest pain. Denies orthopnea. Denies PND. Denies palpitations RESPIRATORY: Reports shortness of breath. + CHATMAN GASTROINTESTINAL: Denies abdominal pain. Denies nausea or vomiting. HEMATOLOGIC: Denies bleeding disorders. GENITOURINARY: Denies any blood in urine. SKIN: Denies pruitis. Denies rash. Physical examination: Gen: This is an 78-year-old male in no acute distress VS: reviewed, blood pressure 109/60, pulse ox 98% on 3 L, heart rate 90. HEENT: Head is atraumatic, normocephalic. Pupils equal, round. Sclerae is anicteric. NECK: Supple. No JVD. LUNGS: Clear to auscultation. No wheezes or rhonchi. No intercostal retractions. HEART: Regular rate and rhythm. Systolic murmur. ABDOMEN: Soft No tenderness. EXTREMITIES: No pedal edema. No calf tenderness. NEUROLOGICAL: Patient is awake, alert and oriented x3. Assessment: Elevated troponin of unclear significance r/o coronary artery disease Acute on chronic hypoxic respiratory failure secondary to COPD exacerbation Bicytopenia with thrombocytopenia and anemia Possible urinary tract infection History of coronary artery disease on CT scan and negative Lexiscan stress test Hypertension Dyslipidemia Remote history of tobacco use and dependence Diabetes mellitus type 2 Plan: Continue current cardiac medications: Aspirin, atorvastatin, Lopressor Obtain 2-D echocardiogram and Doppler study to assess cardiac structure and function Recommend cardiac catheterization most likely will be scheduled later today or tomorrow, following discussion with Dr. Joseph Further recommendations to follow based upon clinical course Thank you kindly for this consultation. Nurse practitioner note has been reviewed, I agree with documented findings and plan of care. Patient was seen and examined. Past Medical History Past Medical History: COPD, Hypertension Additional Past Medical History / Comment(s): HOME 02 2 l prnMURMUR(WHEN PT WAS IN HIGH SCHOOL),"HEAT STROKE" 1970' History of Any Multi-Drug Resistant Organisms: None Reported Past Surgical History: No Surgical Hx Reported Additional Past Surgical History / Comment(s): NO REPORTED SX. Past Anesthesia/Blood Transfusion Reactions: No Reported Reaction Past Psychological History: Depression Smoking Status: Former smoker Past Alcohol Use History: Occasional Past Drug Use History: None Reported - Past Family History Brother(s) Family Medical History: Cancer Medications and Allergies Home Medications Medication Instructions Recorded Confirmed Type predniSONE 5 mg PO DAILY 08/14/15 09/14/23 History Albuterol Nebulized [Ventolin 2.5 mg INHALATION RT-QID 09/14/23 09/14/23 History Nebulized] Albuterol Sulfate [Albuterol 2 puff PO RT-Q4H PRN 09/14/23 09/14/23 History Sulfate Hfa] Budesonide/Formoterol Fumarate 2 puff INHALATION RT-BID 09/14/23 09/14/23 History [Symbicort 160-4.5 Mcg Inhaler] Ipratropium Nebulized [Atrovent 0.5 mg INHALATION RT-QID 09/14/23 09/14/23 History Nebulized 0.2 MG/ML] Tamsulosin HCl [Flomax] 0.4 mg PO BID 09/14/23 09/14/23 History atenoloL 25 mg PO BID 09/14/23 09/14/23 History metFORMIN HCL [Glucophage] 500 mg PO BID 09/14/23 09/14/23 History Allergies Allergy/AdvReac Type Severity Reaction Status Date / Time No Known Allergies Allergy Verified 09/14/23 10:58 Physical Exam Vitals: Vital Signs Temp Pulse Resp BP Pulse Ox 09/15/23 08:04 20 09/15/23 08:00 97.6 F 90 18 109/60 98 09/15/23 06:30 92 15 117/85 98 09/15/23 04:00 94 16 103/59 97 09/15/23 01:00 77 18 09/14/23 23:00 93 20 123/72 95 09/14/23 21:00 96 20 134/117 94 L 09/14/23 20:21 97 09/14/23 20:10 87 09/14/23 20:00 89 17 114/64 95 09/14/23 19:34 88 17 114/64 95 09/14/23 18:00 92 19 113/60 97 09/14/23 15:05 87 18 103/57 98 09/14/23 14:05 85 09/14/23 13:49 84 09/14/23 11:19 86 18 124/66 99 09/14/23 10:43 82 09/14/23 10:34 82 09/14/23 10:06 81 17 119/68 99 09/14/23 09:04 93 20 112/59 97 09/14/23 08:39 97.7 F 99 28 H 120/65 97 Results 09/15/23 03:25 09/15/23 03:25 Cardiac Enzymes 09/14/23 09/14/23 09/14/23 Range/Units 09:04 09:04 11:35 AST 26 (17-59) U/L Troponin I 0.088 H* 0.071 H* (0.000-0.034) ng/mL 09/14/23 09/15/23 Range/Units 14:12 03:25 AST 27 (17-59) U/L Troponin I 0.074 H* (0.000-0.034) ng/mL Coagulation 09/14/23 Range/Units 09:04 PT 10.5 (10.0-12.5) sec APTT 21.5 L (22.0-30.0) sec CBC 09/14/23 09/15/23 Range/Units 09:04 03:25 WBC 10.2 4.8 (3.8-10.6) k/uL RBC 4.27 L 3.44 L (4.30-5.90) m/uL Hgb 13.5 11.1 L (13.0-17.5) gm/dL Hct 39.0 31.6 L (39.0-53.0) % Plt Count 112 L 83 L (150-450) k/uL Comprehensive Metabolic Panel 09/14/23 09/15/23 Range/Units 09:04 03:25 Sodium 137 135 L (137-145) mmol/L Potassium 3.5 3.0 L (3.5-5.1) mmol/L Chloride 103 107 (98-107) mmol/L Carbon Dioxide 27 20 L (22-30) mmol/L BUN 32 H 28 H (9-20) mg/dL Creatinine 0.78 0.68 (0.66-1.25) mg/dL Glucose 92 158 H (74-99) mg/dL Calcium 8.5 7.7 L (8.4-10.2) mg/dL AST 26 27 (17-59) U/L ALT 23 23 (4-49) U/L Alkaline Phosphatase 83 72 (38-126) U/L Total Protein 6.0 L 4.9 L (6.3-8.2) g/dL Albumin 3.5 2.7 L (3.5-5.0) g/dL Current Medications Generic Name Dose Route Start Last Admin Trade Name Freq PRN Reason Stop Dose Admin Acetaminophen 650 mg 09/14/23 10:21 Acetaminophen Tab 325 Mg Tab PO Q6HR PRN Mild Pain or Fever > 100.5 Albuterol/Ipratropium 3 ml 09/14/23 10:14 09/14/23 20:09 Ipratropium-Albuterol 3 Ml Neb INHALATION 3 ml RT-Q4H PRN Administration shortness of breath Aspirin 81 mg 09/15/23 09:00 Aspirin 81 Mg PO DAILY BOB Atorvastatin Calcium 80 mg 09/14/23 11:45 09/14/23 12:00 Atorvastatin 80 Mg Tab PO 80 mg DAILY BOB Administration Azithromycin 500 mg 09/15/23 09:00 Azithromycin 500 Mg Tab PO 09/16/23 09:01 DAILY BOB Protocol Budesonide/Formoterol Fumarate 2 puff 09/14/23 20:00 09/14/23 20:09 Symbicort 160-4.5 Mcg Inhaler INHALATION 2 puff RT-BID BOB Administration Heparin Sodium (Porcine) 5,000 unit 09/14/23 21:00 09/14/23 21:49 Heparin Sodium,Porcine 5,000 Unit/Ml 1 Ml Vial SQ 5,000 unit Q12HR BOB Administration Ceftriaxone Sodium 2 gm/ 50 mls @ 100 mls/hr 09/15/23 09:00 Sodium Chloride IVPB 09/18/23 09:29 Q24HR BOB Protocol Sodium Chloride 1,000 mls @ 75 mls/hr 09/14/23 10:30 09/14/23 23:22 Saline 0.9% IV Not Given .[id number] BOB Metoprolol Tartrate 12.5 mg 09/14/23 21:00 09/14/23 21:49 Metoprolol Tartrate 12.5 Mg Tab PO 12.5 mg BID BOB Administration Miscellaneous Information 1 each 09/14/23 10:14 Pneumonia Protocol Utilized 1 Each Misc PO ONCE PRN Per Protocol Naloxone HCl 0.2 mg 09/14/23 10:21 Naloxone 0.4 Mg/Ml 1 Ml Vial IV Q2M PRN Opioid Reversal Nitroglycerin 0.4 mg 09/14/23 11:39 Nitroglycerin Sl Tabs 0.4 Mg Tab SUBLINGUAL Q5M PRN Chest Pain Prednisone 40 mg 09/15/23 09:00 Prednisone 20 Mg Tab PO 09/19/23 09:01 DAILY [facility] Tamsulosin HCl 0.4 mg 09/14/23 21:00 09/14/23 21:49 Tamsulosin 0.4 Mg Cap.Er.24h PO 0.4 mg BID BOB Administration 09/15/23 03:25 09/15/23 03:25
[2023-09-15] MEDS ORDERED: NITROGLYCERIN SL TABS 0.4 MG TAB SUBLINGUAL PRN (12:33)
[2023-09-15] MEDS: INSULIN ASPART (NovoLOG) 100 UNIT/ML VIAL SQ SCH (12:48)
--- NOTE | 2023-09-15 12:55 | CA ---
Transthoracic Echo Report Name: Ishaan Jarvis Age: 78 Gender: M : 1945 Exam Date: 09/14/2023 15:19 Exam Location: [facility] Ht (in): 67 Wt (lb): 135 Ordering Physician: Jeremy Chanel MD Attending/Referring Phys: Welfare Analyst Renetta Ramirez RDCS Procedure CPT: Indications: dyspnea Cardiac Hx: Technical Quality: Fair Contrast 1: Total Dose (mL): Contrast 2: Total Dose (mL): MEASUREMENTS (Male / Female) Normal Values 2D ECHO LV Diastolic Diameter PLAX 4.3 cm 4.2 - 5.9 / 3.9 - 5.3 cm LV Systolic Diameter PLAX 3.0 cm IVS Diastolic Thickness 1.2 cm 0.6 - 1.0 / 0.6 - 0.9 cm LVPW Diastolic Thickness 1.1 cm 0.6 - 1.0 / 0.6 - 0.9 cm LV Relative Wall Thickness 0.5 RV Internal Dim ED PLAX 3.6 cm LA Systolic Diameter LX 3.7 cm 3.0 - 4.0 / 2.7 - 3.8 cm LA Volume 41.3 cm??? 18 - 58 / 22 - 52 cm??? LA Volume Index 24.3 cm???/m??? 16 - 28 cm???/m??? M-MODE Aortic Root Diameter MM 3.3 cm DOPPLER MV Area PHT 2.7 cm??? Mitral E Point Velocity 67.8 cm/s Mitral A Point Velocity 91.7 cm/s Mitral E to A Ratio 0.7 MV Deceleration Time 279.1 ms FINDINGS Left Ventricle Left ventricular ejection fraction is estimated at 55-60 %. Left ventricular cavity size normal. Mildly increased septal wall thickness. Normal left ventricular wall motion. Right Ventricle Mild right ventricular dilatation. Unable to estimate the right ventricular systolic pressure. Right Atrium Right atrium not well visualized. Left Atrium Normal left atrial size. Mitral Valve Structurally normal mitral valve. No mitral stenosis, regurgitation or prolapse. Aortic Valve Aortic valve not well visualized. No aortic valve stenosis or regurgitation. Tricuspid Valve Structurally normal tricuspid valve. No tricuspid stenosis, regurgitation or prolapse. Pulmonic Valve Pulmonic valve not well visualized. Pericardium No pericardial effusion. Aorta Normal size aortic root and proximal ascending aorta. CONCLUSIONS Normal LV systolic function Previewed by: Dr. Nazario Joseph MD (Electronically Signed) Final Date: 15 Sep 2023 12:55
--- NOTE | 2023-09-15 14:27 | P.PN ---
Subjective Progress Note Date: 09/15/23 This is an 78-year-old male patient with a known history of chronic obstructive pulmonary disease, former smoker, hypertension, depression, diabetes mellitus, on home oxygen at 3 L nasal cannula. Who presented to the emergency room earlier this morning with complaints of increasing shortness of breath, cough and congestion over the past 2 weeks. He also has dyspnea on exertion. His O2 saturations were in the 70s by his daughter and EMS was called. He is seen today in consultation in the emergency department. Currently sitting up on a stretcher. Awake and alert in no acute distress. He is maintaining O2 saturations up to 99% on 3 L/min per nasal cannula. He has been afebrile. Hemodynamically stable. X-ray of reveals evidence of COPD and left basilar atelectasis. White count 10.2. Hemoglobin 13.5. Platelets 112. Sodium 137. Potassium 3.5. Bicarb 27. BUN 32. Creatinine 0.78. Troponin 0.088, 0.071. proBNP 1050. Viral screen negative. The patient is seen today September 15, 2023 in follow-up in the emergency department. He is awake and alert in no acute distress. Maintaining O2 saturations in the 90s on 3 L nasal cannula. He is afebrile. Hemodynamically stable. He is not m uch improved today yet compared to yesterday. Still dyspneic with conversation. Still somewhat bronchospastic and wheezing. White count 4.8. Hemoglobin 11.1. Platelets 83,000. Sodium 135. Potassium 3.0. Bicarb 20. BUN 28. Creatinine 0.68. Glucose 180. Hemoglobin A1c 7.9. He remains on DuoNeb ventilations, Symbicort, prednisone taper. Antibiotics in the form of ceftriaxone and azithro mycin. Heparin for DVT prophylaxis. Objective - Vital Signs Vital signs: Vital Signs Temp 97.6 F 09/15/23 08:00 Pulse 99 09/15/23 13:51 Resp 18 09/15/23 13:51 BP 150/65 09/15/23 13:00 Pulse Ox 97 09/15/23 13:51 FiO2 Intake & Output 09/14/23 09/15/23 09/15/23 18:59 06:59 18:59 Weight 61.235 kg - Exam GENERAL EXAM: Alert, 78-year-old male, on 3 L nasal cannula, resting in bed, in no apparent distress. HEAD: Normocephalic. EYES: Normal reaction of pupils, equal size. NOSE: Clear with pink turbinates. THROAT: No erythema or exudates. NECK: No masses, no JVD. CHEST: No chest wall deformity. LUNGS: Equal air entry with bilateral end expiratory wheeze, few scattered rhonchi. CVS: S1 and S2 normal with no audible murmur, regular rhythm. ABDOMEN: No hepatosplenomegaly, normal bowel sounds, no guarding or rigidity. SPINE: No scoliosis or deformity SKIN: No rashes CENTRAL NERVOUS SYSTEM: No focal deficits, tone is normal in all 4 extremities. EXTREMITIES: There is no peripheral edema. No clubbing, no cyanosis. Peripheral pulses are intact. - Labs CBC & Chem 7: 09/15/23 03:25 09/15/23 03:25 Labs: Abnormal Lab Results - Last 24 Hours (Table) 09/14/23 09/14/23 09/15/23 Range/Units 09:04 14:12 03:25 RBC (4.30-5.90) m/uL Hgb (13.0-17.5) gm/dL Hct (39.0-53.0) % Plt Count (150-450) k/uL Lymphocytes # (1.0-4.8) k/uL Sodium (137-145) mmol/L Potassium (3.5-5.1) mmol/L Carbon Dioxide (22-30) mmol/L BUN (9-20) mg/dL Glucose (74-99) mg/dL POC Glucose (mg/dL) (70-110) mg/dL Hemoglobin A1c 7.9 H (<=6.0) % Calcium (8.4-10.2) mg/dL Troponin I 0.074 H* (0.000-0.034) ng/mL Total Protein (6.3-8.2) g/dL Albumin (3.5-5.0) g/dL Vitamin D 25-Hydroxy (30.0-100.0) ng/mL Procalcitonin 0.22 H (0.02-0.09) ng/mL TSH (0.465-4.680) mIU/L 09/15/23 09/15/23 09/15/23 Range/Units 03:25 03:25 03:25 RBC 3.44 L (4.30-5.90) m/uL Hgb 11.1 L (13.0-17.5) gm/dL Hct 31.6 L (39.0-53.0) % Plt Count 83 L (150-450) k/uL Lymphocytes # 0.4 L (1.0-4.8) k/uL Sodium 135 L (137-145) mmol/L Potassium 3.0 L (3.5-5.1) mmol/L Carbon Dioxide 20 L (22-30) mmol/L BUN 28 H (9-20) mg/dL Glucose 158 H (74-99) mg/dL POC Glucose (mg/dL) (70-110) mg/dL Hemoglobin A1c (<=6.0) % Calcium 7.7 L (8.4-10.2) mg/dL Troponin I (0.000-0.034) ng/mL Total Protein 4.9 L (6.3-8.2) g/dL Albumin 2.7 L (3.5-5.0) g/dL Vitamin D 25-Hydroxy 20.7 L (30.0-100.0) ng/mL Procalcitonin (0.02-0.09) ng/mL TSH 0.141 L (0.465-4.680) mIU/L 09/15/23 Range/Units 12:17 RBC (4.30-5.90) m/uL Hgb (13.0-17.5) gm/dL Hct (39.0-53.0) % Plt Count (150-450) k/uL Lymphocytes # (1.0-4.8) k/uL Sodium (137-145) mmol/L Potassium (3.5-5.1) mmol/L Carbon Dioxide (22-30) mmol/L BUN (9-20) mg/dL Glucose (74-99) mg/dL POC Glucose (mg/dL) 183 H (70-110) mg/dL Hemoglobin A1c (<=6.0) % Calcium (8.4-10.2) mg/dL Troponin I (0.000-0.034) ng/mL Total Protein (6.3-8.2) g/dL Albumin (3.5-5.0) g/dL Vitamin D 25-Hydroxy (30.0-100.0) ng/mL Procalcitonin (0.02-0.09) ng/mL TSH (0.465-4.680) mIU/L Assessment and Plan Assessment: Acute on chronic hypoxic respiratory failure secondary to an acute exacerbation of chronic obstructive pulmonary disease. Chest x-ray reveals some atelectatic changes in the left lung base. Procalcitonin 0.22. Remains on antibiotics. Follow-up chest x-ray continues show evidence of COPD and favoring left basilar atelectasis versus infiltrate. Interstitial changes may represent chronic lung disease Former smoker Oxygen dependent, steroid-dependent COPD Diabetes mellitus Hypertension Plan: The patient was seen and evaluated Chest x-ray, labs and medications reviewed Continue bronchodilators, prednisone taper Continue antibiotics We will continue to follow I have personally seen and examined the patient, performed the documentation and the assessment and plan as written. Number of minutes spent on the visit: 10.
--- NOTE | 2023-09-15 16:29 | P.PN ---
Subjective Progress Note Date: 09/15/23 (delayed charting seen at 1045) Patient is an 78-year-old male with known COPD with chronic hypoxic respiratory failure coronary 3 to 4 L nasal cannula, diabetes mellitus type 2, BPH who presented to the emergency department with complaints of shortness of breath. In the emergency department he underwent extensive evaluation. On arrival he was tachypneic with a respiratory rate of 28. Laboratory analysis was remarkable for platelets of 112 and troponin of 0.08. BNP was normal for age at 1050. Influenza A/B/RSV/COVID-19 testing was negative. Chest x-ray demonstrated COPD with left basilar atelectasis. He was started on prednisone. Cardiology was consulted and echocardiogram was ordered. He was also seen by pulmonary who felt that he may have a mild exacerbation of COPD. Patient seen and examined at bedside with family present. He reports no improvement in his symptoms since getting to the hospital. He states he still would not be able to get to the bathroom due to shortness of breath. He denies any overt chest discomfort. No nausea or vomiting. Family present at bedside and all questions answered. Vital signs reviewed General: Nontoxic, no distress, appears at stated age Cardiovascular: S1S2 reg, + murmur Lungs: Coarse breath sounds bilateral, no rhonchi, no rales, no accessory muscle use Abdominal: Soft, nontender to palpation, no guarding Ext: No gross muscle atrophy, no edema b/l lower extremities, no contractures Neuro: CN II-XI grossly intact, no focal neuro deficits Psych: Alert, oriented, appropriate affect Assessment/Plan: Dyspnea, likely multifactorial suspect ACS in conjunction with possible COPD Mild exacerbation of COPD Elevated troponin Hypertension -Pulmonary recommendations appreciated: Continue with prednisone and bronchodilators -Prednisone 40 mg daily -DuoNebs every 4 hours as needed, Symbicort 2 puffs twice daily -Will discontinue Rocephin as procalcitonin 0.22 not consistent with infection -Cardiology note reviewed: Continue with aspirin, Lopressor, and atorvastatin. Recommend cardiac cath possibly today versus tomorrow with Dr. Negron. Diabetes mellitus type 2 -Metformin on hold -Sliding scale insulin -A1c 7.9 Imaging: Echocardiogram: Ejection fraction 55 to 60%, unable to estimate RVSP or visualized valves. Data Review: Labs reviewed from today include CBC, CMP, and cholesterol profile which are remarkable for platelets of 83, potassium 3, carbon dioxide 20, glucose 158, hemoglobin A1c 7.9 DVT prophylaxis: Heparin Anticipated discharge date: Pending clinical course Anticipated discharge place: Pending clinical course This dictation was prepared using [employer] voice recognition software. Though every attempt is made to correct errors during dictation some may still exist. Objective - Vital Signs Vital signs: Vital Signs Temp 97.7 F 09/15/23 15:18 Pulse 93 09/15/23 15:18 Resp 18 09/15/23 15:18 BP 123/61 09/15/23 15:18 Pulse Ox 97 09/15/23 15:18 FiO2 Intake & Output 09/14/23 09/15/23 09/15/23 18:59 06:59 18:59 Weight 61.235 kg 61.235 kg - Labs CBC & Chem 7: 09/15/23 03:25 09/15/23 03:25 Labs: Abnormal Lab Results - Last 24 Hours (Table) 09/14/23 09/15/23 09/15/23 Range/Units 09:04 03:25 03:25 RBC 3.44 L (4.30-5.90) m/uL Hgb 11.1 L (13.0-17.5) gm/dL Hct 31.6 L (39.0-53.0) % Plt Count 83 L (150-450) k/uL Lymphocytes # 0.4 L (1.0-4.8) k/uL Sodium (137-145) mmol/L Potassium (3.5-5.1) mmol/L Carbon Dioxide (22-30) mmol/L BUN (9-20) mg/dL Glucose (74-99) mg/dL POC Glucose (mg/dL) (70-110) mg/dL Hemoglobin A1c 7.9 H (<=6.0) % Calcium (8.4-10.2) mg/dL Total Protein (6.3-8.2) g/dL Albumin (3.5-5.0) g/dL Vitamin D 25-Hydroxy (30.0-100.0) ng/mL Procalcitonin 0.22 H (0.02-0.09) ng/mL TSH (0.465-4.680) mIU/L 09/15/23 09/15/23 09/15/23 Range/Units 03:25 03:25 12:17 RBC (4.30-5.90) m/uL Hgb (13.0-17.5) gm/dL Hct (39.0-53.0) % Plt Count (150-450) k/uL Lymphocytes # (1.0-4.8) k/uL Sodium 135 L (137-145) mmol/L Potassium 3.0 L (3.5-5.1) mmol/L Carbon Dioxide 20 L (22-30) mmol/L BUN 28 H (9-20) mg/dL Glucose 158 H (74-99) mg/dL POC Glucose (mg/dL) 183 H (70-110) mg/dL Hemoglobin A1c (<=6.0) % Calcium 7.7 L (8.4-10.2) mg/dL Total Protein 4.9 L (6.3-8.2) g/dL Albumin 2.7 L (3.5-5.0) g/dL Vitamin D 25-Hydroxy 20.7 L (30.0-100.0) ng/mL Procalcitonin (0.02-0.09) ng/mL TSH 0.141 L (0.465-4.680) mIU/L
[2023-09-15 16:46] LABS: Glucose,Whole Blood 201 mg/dL (70-110)
[2023-09-15 19:55] LABS: Glucose,Whole Blood 208 mg/dL (70-110)
[2023-09-16] MEDS: ATORVASTATIN 80 MG TAB PO ONE (05:06)
[2023-09-16] MEDS: ASPIRIN 325 MG TAB PO ONE (05:06)
[2023-09-16 06:11] LABS: Glucose,Whole Blood 141 mg/dL (70-110)
[2023-09-16] MEDS ORDERED: HEPARIN SODIUM,PORCINE 10,000 UNIT in SODIUM CHLORIDE 0.9% 1,000 ML IRRIGATION PRN (07:00)
[2023-09-16] MEDS ORDERED: HEPARIN SODIUM,PORCINE (1 ML) 2,500 UNIT in SODIUM CHLORIDE 0.9% 250 ML IRRIGATION PRN (07:00)
[2023-09-16] MEDS: MIDAZOLAM 2 MG/2 ML VIAL IVP ONE (11:19)
[2023-09-16] MEDS: LIDOCAINE 2% (PF) 20 MG/ML 5 ML VIAL SQ ONE (11:19)
[2023-09-16] MEDS: fentaNYL (PF) 50 MCG/1 ML VIAL IVP ONE ×2 (11:19→12:13)
[2023-09-16 11:20] LABS: HCT 30.6 % (39.0-53.0); MCHC 32.8 g/dL (31.0-37.0); MCV 94.5 fL (80.0-100.0); Mean Platelet Volume 8.1; Poikilocytosis Slight; RBC 3.24 m/uL (4.30-5.90); RDW 14.8 % (11.5-15.5); WBC 3.6 k/uL (3.8-10.6)
[2023-09-16 11:29] LABS: Platelet Count 97 k/uL (150-450)
[2023-09-16] MEDS: HEPARIN SODIUM 1,000 UN/ML (10ML VL) IVP ONE ×2 (11:46→12:14)
[2023-09-16] MEDS: TICAGRELOR 90 MG TAB PO ONE (12:13)
[2023-09-16 12:16] LABS: African American GFR (CKD) >90 (>60 ml/min/1.73 sqM); Anion Gap 6 mmol/L; Blood Urea Nitrogen 21 mg/dL (9-20); Calcium 7.2 mg/dL (8.4-10.2); Carbon Dioxide 19 mmol/L (22-30); Chloride 114 mmol/L (98-107); Glucose 97 mg/dL (74-99); Magnesium 2.1 mg/dL (1.6-2.3); Non-African American GFR(CKD) >90 (>60 ml/min/1.73 sqM); Potassium 3.2 mmol/L (3.5-5.1); Sodium 139 mmol/L (137-145)
[2023-09-16] MEDS: NITROGLYCERIN 1000MCG/10ML SYRINGE INTRACORON ONE (12:21)
[2023-09-16] MEDS: MORPHINE SULFATE 4 MG/ML SYRINGE IVP ONE (12:24)
[2023-09-16] MEDS: HEPARIN SODIUM 1,000 UN/ML (10ML VL) MISCELLANE ONE (12:27)
[2023-09-16] MEDS: NITROGLYCERIN SL TABS 0.4 MG TAB SUBLINGUAL ONE (12:38)
[2023-09-16] MEDS ORDERED: ZOLPIDEM 5 MG TAB PO PRN (12:42)
[2023-09-16] MEDS ORDERED: MAG HYDROX/AL HYDROX/SIMETH 30 ML CUP PO PRN (12:42)
[2023-09-16] MEDS ORDERED: ATROPINE SULFATE 0.1 MG/ML 10ML SYRINGE IV PRN (12:42)
[2023-09-16] MEDS ORDERED: RX INFO: IV CONTRAST WAS GIVEN 1 EACH MISC MISCELLANE PRN (12:42)
--- NOTE | 2023-09-16 12:48 | P.PCN ---
Date of Procedure: 09/16/23 Operative Findings: CARDIAC CATHETERIZATION AND PERCUTANEOUS CORONARY INTERVENTION PERFORMING PHYSICIAN: Nazario Joseph MD, [facility] PROCEDURE PERFORMED: 1. Selective right and left coronary angiogram 2. Left heart catheterization 3. Successful stenting of mid LAD using 3.5 x 23 mm Xience PILLO with an excel lent angiographic results 4. Adjunctive use of Dobler wire and intravascular imaging 5. Ultrasound-guided access of the right common femoral artery and right common femoral artery angiogram INDICATION: Chest discomfort and shortness of breath concerning for angina COMPLICATION: None APPROACH: Right common femoral artery LEVEL OF SEDATION: Moderate with the sedation time off 80 minutes PROCEDURE DESCRIPTION: After obtaining informed consent the patient was brought to the cardiac Lithographed Plate Inspector. The right common femoral artery was cannulated using micropuncture technique under ultrasound guidance the micropuncture wire passed easily then I placed initially a 6 Cymro sheath and because there was an oozing around the sheath I did exchange the sheath into a 7 Cymro sheath. Selective right and left coronary angiogram performed using JR4 and JL 4 catheters. Left heart catheterization was performed using 6 Cymro pigtail catheter. After that I decided to do Dobler wire measurement of the RCA and LAD. After zeroing the Doppler wire and equalizing between the Doppler wire and guiding catheter which was JR4 guiding catheter the RCA was engaged and subsequently I did advance a wire distal to the lesion in the distal RCA. The IFR of the RCA came in to be at 0.94. Subsequently I did equalized between the Doppler wire and guiding catheter for the left coronary system which was JL 4 guiding catheter and subsequently left main was engaged and subsequently the LAD was wired. The IFR came in to be at 0.85. At that point I decided to intervene on the LAD. I did intravascular ultrasound and that showed a diameter distally about 3.5 and proximally about 4.0 mm. Subsequently I did predilated using 3.5 mm noncompliant balloon before I deployed a 3.5 x 23 mm stent which was postdilated proximally using 4 mm balloon and distally using 3.5 mm balloon. Final angiogram showed good angiographic results. Please note that before I did angioplasty on the LAD I wired the diagonal to protect the diagonal. There was pinching on the diagonal it has IZABEL-3 flow and because the patient was asymptomatic we decided to treat him medically. The procedure was completed with no complication SELECTIVE CORONARY ANGIOGRAM: The right coronary artery: Large-caliber vessel and a calcified vessel with intermediate disease distally documented to be nonflow limiting by Doppler wire Left main: Calcified with mild disease only The left circumflex: Large-caliber vessel nondominant vessel with mild disease only The left anterior descending artery: Large-caliber vessel and calcified vessel with intermediate to severe disease involving the mid LAD documented to be flow-limiting by Doppler wire HEMODYNAMICS: LVEDP was 6 mmHg with no gradient was identified across aortic valve CONCLUSION: Extremely calcified right and left coronary systems Intermediate disease involving distal RCA documented to be nonflow limiting by Doppler wire Intermediate disease involving the mid LAD documented to be flow-limiting by Doppler wire. I did perform PCI of the LAD as described above Normal left-sided filling pressure POSTPROCEDURE MANAGEMENT: 1. Dual antiplatelet therapy using aspirin and Brilinta for 12 month 2. Aggressive cholesterol control 3. Follow-up with the patient
[2023-09-16] MEDS: IOPAMIDOL-370 100ML BTL INTRATHECA ONE (13:02)
[2023-09-16] MEDS: SODIUM CHLORIDE 0.9% 1,000 ML IV ONE (13:02)
--- NOTE | 2023-09-16 13:26 | P.PN ---
Subjective Progress Note Date: 09/16/23 Principal diagnosis: Acute exacerbation of COPD This is an 78-year-old male patient with a known history of chronic obstructive pulmonary disease, former smoker, hypertension, depression, diabetes mellitus, on home oxygen at 3 L nasal cannula. Who presented to the emergency room earlier this morning with complaints of increasing shortness of breath, cough and congestion over the past 2 weeks. He also has dyspnea on exertion. His O2 saturations were in the 70s by his daughter and EMS was called. He is seen today in consultation in the emergency department. Currently sitting up on a stretcher. Awake and alert in no acute distress. He is maintaining O2 saturations up to 99% on 3 L/min per nasal cannula. He has been afebrile. Hemodynamically stable. X-ray of reveals evidence of COPD and left basilar atelectasis. White count 10.2. Hemoglobin 13.5. Platelets 112. Sodium 137. Potassium 3.5. Bicarb 27. BUN 32. Creatinine 0.78. Troponin 0.088, 0.071. proBNP 1050. Viral screen negative. The patient is seen today September 15, 2023 in follow-up in the emergency department. He is awake and alert in no acute distress. Maintaining O2 saturations in the 90s on 3 L nasal cannula. He is afebrile. Hemodynamically stable. He is not much improved today yet compared to yesterday. Still dyspneic with conversation. Still somewhat bronchospastic and wheezing. White count 4.8. Hemoglobin 11.1. Platelets 83,000. Sodium 135. Potassium 3.0. Bicarb 20. B UN 28. Creatinine 0.68. Glucose 180. Hemoglobin A1c 7.9. He remains on DuoNeb ventilations, Symbicort, prednisone taper. Antibiotics in the form of ceftriaxone and azithromycin. Heparin for DVT prophylaxis. Patient was evaluated today on 09/16/2023, patient is doing about the same, continues to have shortness of breath, on physical examination, he sounded fairly clear, not much wheezing noted today compared to the day of admission however the patient remains symptomatic. Considering this I recommended a D- dimer, and if elevated I would recommend a CT angiogram of the chest.Patient underwent cardiac catheterization today, and he had successful stenting of mid LAD Objective - Vital Signs Vital signs: Vital Signs Temp 98.0 F 09/16/23 07:45 Pulse 88 05/08/24 08:08 Resp 18 09/16/23 08:00 BP 135/65 09/16/23 07:45 Pulse Ox 100 09/16/23 07:45 FiO2 Intake & Output 09/15/23 09/16/23 09/16/23 18:59 06:59 18:59 Intake Total 510 300 Balance 510 300 Weight 61.235 kg 61.5 kg Intake: IV 300 Intake, IV Titration 150 Amount Sodium Chloride 0.9% 1, 150 000 ml @ 75 mls/hr IV . [id number] BOB Rx#:[id number] Oral 360 Other: # Voids 250 - Exam GENERAL EXAM: Revealed 78-year-old white male in no distress however seems to be anxious and complaining that he is not feeling any better since he came in HEAD: Normocephalic. EYES: Normal reaction of pupils, equal size. NOSE: Clear with pink turbinates. THROAT: No erythema or exudates. NECK: No masses, no JVD. CHEST: No chest wall deformity. LUNGS: Good breath sound bilaterally no rhonchi no wheezes CVS: S1 and S2 normal with no audible murmur, regular rhythm. ABDOMEN: No hepatosplenomegaly, normal bowel sounds, no guarding or rigidity. SKIN: No rashes CENTRAL NERVOUS SYSTEM: No focal deficits, tone is normal in all 4 extremities. EXTREMITIES: There is no peripheral edema. No clubbing, no cyanosis. Peripheral pulses are intact. - Labs CBC & Chem 7: 09/16/23 09:37 09/16/23 09:37 Labs: Abnormal Lab Results - Last 24 Hours (Table) 09/15/23 09/15/23 09/16/23 Range/Units 16:38 19:53 06:08 WBC (3.8-10.6) k/uL RBC (4.30-5.90) m/uL Hgb (13.0-17.5) gm/dL Hct (39.0-53.0) % Plt Count (150-450) k/uL D-Dimer (<0.60) mg/L FEU Potassium (3.5-5.1) mmol/L Chloride (98-107) mmol/L Carbon Dioxide (22-30) mmol/L BUN (9-20) mg/dL Creatinine (0.66-1.25) mg/dL POC Glucose (mg/dL) 201 H 208 H 141 H (70-110) mg/dL Calcium (8.4-10.2) mg/dL 09/16/23 09/16/23 09/16/23 Range/Units 09:37 09:37 09:48 WBC 3.6 L (3.8-10.6) k/uL RBC 3.24 L (4.30-5.90) m/uL Hgb 10.0 L (13.0-17.5) gm/dL Hct 30.6 L (39.0-53.0) % Plt Count 97 L (150-450) k/uL D-Dimer 4.36 H (<0.60) mg/L FEU Potassium 3.2 L (3.5-5.1) mmol/L Chloride 114 H (98-107) mmol/L Carbon Dioxide 19 L (22-30) mmol/L BUN 21 H (9-20) mg/dL Creatinine 0.50 L (0.66-1.25) mg/dL POC Glucose (mg/dL) (70-110) mg/dL Calcium 7.2 L (8.4-10.2) mg/dL Microbiology - Last 24 Hours (Table) 09/14/23 10:40 Blood Culture - Preliminary Blood 09/14/23 10:25 Blood Culture - Preliminary Blood Assessment and Plan Assessment: Impression: Acute on chronic hypoxic respiratory failure secondary to an acute exacerbation of chronic obstructive pulmonary disease. Chest x-ray reveals some atelectatic changes in the left lung base. Procalcitonin 0.22. Remains on antibiotics. Follow-up chest x-ray continues show evidence of COPD and favoring left basilar atelectasis versus infiltrate. Status post stenting of LAD Elevated D-dimer and shortness of breath could not be explained by the chest x- ray findings and by the physical examination findings hence a CT angiogram will be advised Former smoker Oxygen dependent, steroid-dependent COPD Diabetes mellitus Hypertension Recommendation: Continue bronchodilators Continue antibiotics Continue steroids Continue treatment plan as per cardiology for his coronary artery disease and he is status post stent placement Will strongly recommend CT angiogram of the chest since his symptoms of shortness of breath do not seem to correlate with his physical examination findings and not to mention the patient has elevated D-dimer. Will continue to follow Time with Patient: Less than 30
[2023-09-16 13:28] LABS: Glucose,Whole Blood 113 mg/dL (70-110)
[2023-09-16 15:15] VITALS: BMI 21.2
--- NOTE | 2023-09-16 16:10 | P.PN ---
Subjective Progress Note Date: 09/16/23 (delayed charting seen at 1030) Patient is an 78-year-old male with known COPD with chronic hypoxic respiratory failure coronary 3 to 4 L nasal cannula, diabetes mellitus type 2, BPH who presented to the emergency department with complaints of shortness of breath. In the emergency department he underwent extensive evaluation. On arrival he was tachypneic with a respiratory rate of 28. Laboratory analysis was remarkable for platelets of 112 and troponin of 0.08. BNP was normal for age at 1050. Influenza A/B/RSV/COVID-19 testing was negative. Chest x-ray demonstrated COPD with left basilar atelectasis. He was started on prednisone. Cardiology was consulted and echocardiogram was ordered. He was also seen by pulmonary who felt that he may have a mild exacerbation of COPD. He was seen by cardiology who recommended cardiac catheterization which was completed on 09/16/2023 which showed significant disease to the LAD which was treated with drug-eluting stent. Patient seen and examined at bedside. Daughters are present. He was fine when laying in bed but continues to feel weak and up and ambulating. He denies any overt chest pain. Vital signs reviewed General: Nontoxic, no distress, appears at stated age Cardiovascular: S1S2 reg, + murmur Lungs: Coarse breath sounds bilateral, no rhonchi, no rales, no accessory muscle use Abdominal: Soft, nontender to palpation, no guarding Ext: No gross muscle atrophy, no edema b/l lower extremities, no contractures Neuro: CN II-XI grossly intact, no focal neuro deficits Psych: Alert, oriented, appropriate affect Assessment/Plan: NSTEMI s/p PCI to the LAD Mild exacerbation of COPD Hypertension Pulmonary note reviewed: Continue with bronchodilators and steroids, possible CT angiogram of the chest as shortness of breath does not seem to coordinate with physical exam findings. Patient does have an elevated D-dimer. -Prednisone 40 mg daily -DuoNebs every 4 hours as needed, Symbicort 2 puffs twice daily -Will discontinue Rocephin as procalcitonin 0.22 not consistent with infection -Cardiology cath reviewed: dula antiplatelets for 1 year - could consider CTA chest in AM if Cr stable, had dye today but SOB could be explained by LAD lesion Diabetes mellitus type 2 -Metformin on hold -Sliding scale insulin -A1c 7.9 Imaging: Echocardiogram: Ejection fraction 55 to 60%, unable to estimate RVSP or visualized valves. Data Review: Labs reviewed from today include CBC and basic metabolic profile which are remarkable for white blood cell count 3.6, hemoglobin 10, platelets 97, potassium 3.2, carbon dioxide 19, BUN 21, creatinine 0.5. DVT prophylaxis: Heparin Anticipated discharge date: Pending clinical course Anticipated discharge place: Pending clinical course This dictation was prepared using [employer] voice recognition software. Though every attempt is made to correct errors during dictation some may still exist. Objective - Vital Signs Vital signs: Vital Signs Temp 98.0 F 09/16/23 07:45 Pulse 91 09/16/23 15:45 Resp 16 09/16/23 15:45 BP 139/68 09/16/23 15:45 Pulse Ox 97 09/16/23 15:45 FiO2 Intake & Output 09/15/23 09/16/23 09/16/23 18:59 06:59 18:59 Intake Total 510 300 Balance 510 300 Weight 61.235 kg 61.5 kg 61.5 kg Intake: IV 300 Intake, IV Titration 150 Amount Sodium Chloride 0.9% 1, 150 000 ml @ 75 mls/hr IV . [id number] BOB Rx#:[id number] Oral 360 Other: # Voids 250 - Labs CBC & Chem 7: 09/16/23 09:37 09/16/23 09:37 Labs: Abnormal Lab Results - Last 24 Hours (Table) 09/15/23 09/15/23 09/16/23 Range/Units 16:38 19:53 06:08 WBC (3.8-10.6) k/uL RBC (4.30-5.90) m/uL Hgb (13.0-17.5) gm/dL Hct (39.0-53.0) % Plt Count (150-450) k/uL D-Dimer (<0.60) mg/L FEU Potassium (3.5-5.1) mmol/L Chloride (98-107) mmol/L Carbon Dioxide (22-30) mmol/L BUN (9-20) mg/dL Creatinine (0.66-1.25) mg/dL POC Glucose (mg/dL) 201 H 208 H 141 H (70-110) mg/dL Hemoglobin A1c (<=6.0) % Calcium (8.4-10.2) mg/dL 09/16/23 09/16/23 09/16/23 Range/Units 09:37 09:37 09:37 WBC 3.6 L (3.8-10.6) k/uL RBC 3.24 L (4.30-5.90) m/uL Hgb 10.0 L (13.0-17.5) gm/dL Hct 30.6 L (39.0-53.0) % Plt Count 97 L (150-450) k/uL D-Dimer (<0.60) mg/L FEU Potassium 3.2 L (3.5-5.1) mmol/L Chloride 114 H (98-107) mmol/L Carbon Dioxide 19 L (22-30) mmol/L BUN 21 H (9-20) mg/dL Creatinine 0.50 L (0.66-1.25) mg/dL POC Glucose (mg/dL) (70-110) mg/dL Hemoglobin A1c 8.0 H (<=6.0) % Calcium 7.2 L (8.4-10.2) mg/dL 09/16/23 09/16/23 Range/Units 09:48 13:26 WBC (3.8-10.6) k/uL RBC (4.30-5.90) m/uL Hgb (13.0-17.5) gm/dL Hct (39.0-53.0) % Plt Count (150-450) k/uL D-Dimer 4.36 H (<0.60) mg/L FEU Potassium (3.5-5.1) mmol/L Chloride (98-107) mmol/L Carbon Dioxide (22-30) mmol/L BUN (9-20) mg/dL Creatinine (0.66-1.25) mg/dL POC Glucose (mg/dL) 113 H (70-110) mg/dL Hemoglobin A1c (<=6.0) % Calcium (8.4-10.2) mg/dL Microbiology - Last 24 Hours (Table) 09/14/23 10:40 Blood Culture - Preliminary Blood 09/14/23 10:25 Blood Culture - Preliminary Blood
[2023-09-16 16:37] LABS: Glucose,Whole Blood 231 mg/dL (70-110)
[2023-09-16] MEDS: guaiFENesin-DM 600/30MG 1 EACH TAB.ER.12H PO SCH (17:18)
[2023-09-16] MEDS: POTASSIUM CHLORIDE ER 20 MEQ TAB.ER PO STA (17:25)
--- NOTE | 2023-09-16 19:15 | US ---
EXAMINATION TYPE: US venous doppler duplex LE BI DATE OF EXAM: 09/16/2023 5:25 PM COMPARISON: NONE CLINICAL INDICATION: Male, 78 years old with history of r/o DVT; Rule out DVT. Pt had heart cath toda y with right groin approach. SIDE PERFORMED: Bilateral TECHNIQUE: The lower extremity deep venous system is examined utilizing real time linear array sonog chastity with graded compression, doppler sonography and color-flow sonography. VESSELS IMAGED: Common Femoral Vein Deep Femoral Vein Greater Saphenous Vein * Femoral Vein Popliteal Vein Small Saphenous Vein * Proximal Calf Veins (* superficial vessels) Right Leg: No evidence for DVT Left Leg: No evidence for DVT Incidental: Echoes seen inside the right [employer], prox femoral a, and mid femoral a with no blood flow . IMPRESSION: 1. No ultrasound evidence for deep venous thrombosis of bilateral lower extremities. 2. Echogenic appearance with no color flow identified within the right [employer], proximal right femoral ar ana and mid right femoral artery likely representing arterial occlusion. Correlation with patient hi story for known occlusion is recommended. Consider vascular surgery consultation.
[2023-09-16] MEDS: TICAGRELOR 90 MG TAB PO SCH (20:04)
[2023-09-16 20:09] LABS: Glucose,Whole Blood 196 mg/dL (70-110)
[2023-09-17 05:59] LABS: Glucose,Whole Blood 221 mg/dL (70-110)
[2023-09-17] MEDS: ASPIRIN 81 MG PO SCH (09:56)
[2023-09-17] MEDS: ATORVASTATIN 80 MG TAB PO SCH (09:56)
--- NOTE | 2023-09-17 10:28 | CT ---
EXAMINATION TYPE: CT angio chest DATE OF EXAM: 09/17/2023 COMPARISON: 10/25/2021 HISTORY: 78-year-old male shortness of breath, rule out PE TECHNIQUE: Contiguous axial scanning of the chest after the administration of 100 mL of Isovue 370. Coronal/sagittal MIP reconstructions performed. CT DLP: 375 mGycm. Automatic exposure control utilized for a dose reduction. FINDINGS: The heart is normal size without pericardial effusion. There may be some left ventricular wall hypert rophy. Small anterior pericardial effusion measuring 7 mm thick. LAD and RCA coronary calcifications are present. No reflux of contrast into the hepatic veins Ectatic aortic root at 3.5 cm. Moderate atherosclerotic changes within the aortic arch with conventio nal arch vessel branching anatomy. A few scattered nonenlarged mediastinal lymph nodes. Prominent right hilar lymph nodes measuring up t o 1.2 cm may be reactive/post inflammatory. These can be reassessed at the follow-up. Satisfactory opacification of the pulmonary arterial system without evidence for pulmonary embolus. There is moderate to advanced intralobular emphysema. Mild diffuse bronchial wall thickening. There i s a more moderate basilar bronchial wall thickening and some scattered endobronchial material especia lly in the left lower lobe. Some calcified pleural plaques posterior right lower lobe and mild pleural thickening as well as unde rlying subpleural groundglass similar prior. No consolidation or pleural effusion. Bones: Tiny hiatal hernia. Borderline size spleen at 13.5 cm unchanged. Bones: Old healed fracture deformity of the surgical neck right humerus. Moderate degenerative disc d isease T11-T12. Osteopenia. IMPRESSION: 1. No evidence for pulmonary embolus. 2. COPD with moderate to advanced emphysema. Bronchial wall thickening is greater in the lower lungs and with some scattered endobronchial debris. Consider a bronchitis. 3. Some prominent right hilar lymph nodes measuring up to 1.2 cm may be reactive/post inflammatory. T hree-month follow-up CT to ensure stability/resolution. 4. Some left ventricular wall hypertrophy. Correlate for any underlying hypertension. Cardiac echo if indicated.
[2023-09-17 10:33] LABS: Basophils % (A) 0 %; Eosinophils % (A) 0 %; HCT 28.6 % (39.0-53.0); HGB 9.9 gm/dL (13.0-17.5); Lymphocytes # (A) 0.4 k/uL (1.0-4.8); Lymphocytes % (A) 9 %; MCH 32.3 pg (25.0-35.0); MCHC 34.6 g/dL (31.0-37.0); MCV 93.2 fL (80.0-100.0); Mean Platelet Volume 8.7; Monocytes # (A) 0.3 k/uL (0-1.0); Monocytes % (A) 6 %; Neutrophils # (A) 3.5 k/uL (1.3-7.7); Neutrophils % (A) 83 %; Poikilocytosis Slight; RBC 3.06 m/uL (4.30-5.90); RDW 15.2 % (11.5-15.5); WBC 4.2 k/uL (3.8-10.6)
[2023-09-17 10:34] LABS: Platelet Count 98 k/uL (150-450)
[2023-09-17 10:57] LABS: African American GFR (CKD) >90 (>60 ml/min/1.73 sqM); Anion Gap 2 mmol/L; Blood Urea Nitrogen 16 mg/dL (9-20); Calcium 7.5 mg/dL (8.4-10.2); Carbon Dioxide 23 mmol/L (22-30); Chloride 112 mmol/L (98-107); Glucose 103 mg/dL (74-99); Non-African American GFR(CKD) >90 (>60 ml/min/1.73 sqM); Potassium 3.3 mmol/L (3.5-5.1); Sodium 137 mmol/L (137-145)
[2023-09-17] MEDS ORDERED: polyethylene glycoL 3350 17 GM POWD.PACK PO PRN (11:29)
--- NOTE | 2023-09-17 11:52 | P.PN ---
Subjective Progress Note Date: 09/17/23 This is an 78-year-old male patient with a known history of chronic obstructive pulmonary disease, former smoker, hypertension, depression, diabetes mellitus, on home oxygen at 3 L nasal cannula. Who presented to the emergency room earlier this morning with complaints of increasing shortness of breath, cough and congestion over the past 2 weeks. He also has dyspnea on exertion. His O2 saturations were in the 70s by his daughter and EMS was called. He is seen today in consultation in the emergency department. Currently sitting up on a stretcher. Awake and alert in no acute distress. He is maintaining O2 saturations up to 99% on 3 L/min per nasal cannula. He has been afebrile. Hemodynamically stable. X-ray of reveals evidence of COPD and left basilar atelectasis. White count 10.2. Hemoglobin 13.5. Platelets 112. Sodium 137. Potassium 3.5. Bicarb 27. BUN 32. Creatinine 0.78. Troponin 0.088, 0.071. proBNP 1050. Viral screen negative. The patient is seen today September 15, 2023 in follow-up in the emergency department. He is awake and alert in no acute distress. Maintaining O2 saturations in the 90s on 3 L nasal cannula. He is afebrile. Hemodynamically stable. He is not m uch improved today yet compared to yesterday. Still dyspneic with conversation. Still somewhat bronchospastic and wheezing. White count 4.8. Hemoglobin 11.1. Platelets 83,000. Sodium 135. Potassium 3.0. Bicarb 20. BUN 28. Creatinine 0.68. Glucose 180. Hemoglobin A1c 7.9. He remains on DuoNeb ventilations, Symbicort, prednisone taper. Antibiotics in the form of ceftriaxone and azithro mycin. Heparin for DVT prophylaxis. Patient was evaluated today on 09/16/2023, patient is doing about the same, continues to have shortness of breath, on physical examination, he sounded fairly clear, not much wheezing noted today compared to the day of admission however the patient remains symptomatic. Considering this I recommended a D- dimer, and if elevated I would recommend a CT angiogram of the chest.Patient underwent cardiac catheterization today, and he had successful stenting of mid LAD The patient is seen today September 17, 2023 in follow-up on the selective care unit. He is currently resting comfortably in bed. Awake and alert in no acute distress. He is maintaining O2 saturations up to 99% on 3 L/min per nasal cannula. He is afebrile. Hemodynamically stable. White count 4.2. Hemoglobin 9.9. Platelets 98,000. Sodium 137. Potassium 3.3. Bicarb 23. BUN 16. Creatinine 0.56. Glucose 103. CT angiogram ruled out pulmonary embolism. There is COPD with moderate to advanced emphysema. Bronchial wall thickening with scattered endobronchial debris consider bronchitis. Some prominent right hilar lymph nodes measuring up to 1.2 cm may be reactive. He is continued on prednisone. Remains on Mucinex. Heparin for DVT prophylaxis. Objective - Vital Signs Vital signs: Vital Signs Temp 97.9 F 09/17/23 08:24 Pulse 99 09/17/23 08:30 Resp 18 09/17/23 08:30 BP 129/65 09/17/23 08:24 Pulse Ox 99 09/17/23 08:24 FiO2 Intake & Output 09/16/23 09/17/23 09/17/23 18:59 06:59 18:59 Intake Total 300 0 Output Total 300 Balance 300 -300 Weight 61.5 kg Intake: IV 300 Oral 0 Output: Urine 300 Other: Voiding Method Urinal Urinal # Voids 600 400 - Exam GENERAL EXAM: Alert, pleasant 78-year-old male, on 3 L nasal cannula, resting in bed, in no distress. HEAD: Normocephalic. EYES: Normal reaction of pupils, equal size. NOSE: Clear with pink turbinates. THROAT: No erythema or exudates. NECK: No masses, no JVD. CHEST: No chest wall deformity. LUNGS: Equal air entry with bilateral end expiratory wheeze. Diminished. CVS: S1 and S2 normal with no audible murmur, regular rhythm. ABDOMEN: No hepatosplenomegaly, normal bowel sounds, no guarding or rigidity. SPINE: No scoliosis or deformity SKIN: No rashes CENTRAL NERVOUS SYSTEM: No focal deficits, tone is normal in all 4 extremities. EXTREMITIES: There is no peripheral edema. No clubbing, no cyanosis. Peripheral pulses are intact. - Labs CBC & Chem 7: 09/17/23 08:05 09/17/23 08:05 Labs: Abnormal Lab Results - Last 24 Hours (Table) 09/16/23 09/16/23 09/16/23 Range/Units 09:37 09:37 13:26 RBC (4.30-5.90) m/uL Hgb (13.0-17.5) gm/dL Hct (39.0-53.0) % Plt Count (150-450) k/uL Lymphocytes # (1.0-4.8) k/uL Potassium 3.2 L (3.5-5.1) mmol/L Chloride 114 H (98-107) mmol/L Carbon Dioxide 19 L (22-30) mmol/L BUN 21 H (9-20) mg/dL Creatinine 0.50 L (0.66-1.25) mg/dL Glucose (74-99) mg/dL POC Glucose (mg/dL) 113 H (70-110) mg/dL Hemoglobin A1c 8.0 H (<=6.0) % Calcium 7.2 L (8.4-10.2) mg/dL 09/16/23 09/16/23 09/17/23 Range/Units 16:35 20:06 05:58 RBC (4.30-5.90) m/uL Hgb (13.0-17.5) gm/dL Hct (39.0-53.0) % Plt Count (150-450) k/uL Lymphocytes # (1.0-4.8) k/uL Potassium (3.5-5.1) mmol/L Chloride (98-107) mmol/L Carbon Dioxide (22-30) mmol/L BUN (9-20) mg/dL Creatinine (0.66-1.25) mg/dL Glucose (74-99) mg/dL POC Glucose (mg/dL) 231 H 196 H 221 H (70-110) mg/dL Hemoglobin A1c (<=6.0) % Calcium (8.4-10.2) mg/dL 09/17/23 09/17/23 Range/Units 08:05 08:05 RBC 3.06 L (4.30-5.90) m/uL Hgb 9.9 L (13.0-17.5) gm/dL Hct 28.6 L (39.0-53.0) % Plt Count 98 L (150-450) k/uL Lymphocytes # 0.4 L (1.0-4.8) k/uL Potassium 3.3 L (3.5-5.1) mmol/L Chloride 112 H (98-107) mmol/L Carbon Dioxide (22-30) mmol/L BUN (9-20) mg/dL Creatinine 0.56 L (0.66-1.25) mg/dL Glucose 103 H (74-99) mg/dL POC Glucose (mg/dL) (70-110) mg/dL Hemoglobin A1c (<=6.0) % Calcium 7.5 L (8.4-10.2) mg/dL Microbiology - Last 24 Hours (Table) 09/16/23 09:42 Gram Stain - Preliminary Sputum 09/14/23 10:40 Blood Culture - Preliminary Blood 09/14/23 10:25 Blood Culture - Preliminary Blood Assessment and Plan Assessment: Acute on chronic hypoxic respiratory failure secondary to an acute exacerbation of chronic obstructive pulmonary disease. Chest x-ray reveals some atelectatic changes in the left lung base. Procalcitonin 0.22. Remains on antibiotics. Follow-up chest x-ray continues show evidence of COPD and favoring left basilar atelectasis versus infiltrate. Interstitial changes may represent chronic lung disease. CT angiogram ruled out pulmonary embolism, some bronchial wall thicken ing and possible bronchitis with reactive lymph nodes Chest pain in a patient found to have coronary artery disease status post stenting of the mid LAD on 09/16/2023 Former smoker Oxygen dependent, steroid-dependent COPD Diabetes mellitus Hypertension Plan: The patient was seen and evaluated Labs and medications reviewed Continue bronchodilators, prednisone taper Completed antibiotics CT angiogram reviewed with Dr. Ricci The patient is cleared for discharge once cleared by cardiology This patient was seen independently by the pulmonary nurse practitioner addressing pulmonary issues I have personally seen and examined the patient, performed the documentation and the assessment and plan as written. Number of minutes spent on the visit: 24.
[2023-09-17 12:07] LABS: Glucose,Whole Blood 176 mg/dL (70-110)
[2023-09-17] MEDS: POTASSIUM CHLORIDE ER 20 MEQ TAB.ER PO STA (12:22)
--- NOTE | 2023-09-17 12:24 | US ---
EXAMINATION TYPE: US extremity nonvasc mass LT DATE OF EXAM: 09/17/2023 COMPARISON: NONE CLINICAL INDICATION: Male, 78 years old with history of possible hematoma left elbow; bruising to lef t arm TECHNIQUE: FINDINGS: Some edema noted at AOC; no definite hematoma noted in patients left arm IMPRESSION: Soft tissue edema with no organized hematoma.
--- NOTE | 2023-09-17 13:42 | P.PN ---
Subjective Progress Note Date: 09/17/23 Reason for Consult (text): Elevated troponin History of present illness: History of present illness: This is an 86-year-old male patient of Dr. Joseph with past medical history of coronary artery disease based on CT scan, hypertension, dyslipidemia, remote history of tobacco use and dependence, chronic obstructive pulmonary disease, diabetes, chronic hypoxic respiratory failure on home O2 at 3 L. We have been asked to evaluate the patient for elevated troponins. Patient presented to the emergency center due to increasing shortness of breath, cough, congestion that had worsened over the past 1 month and he states that he is "just sick of it." He also has dyspnea on exertion especially with walking no more than 50 feet for several months. His daughter states that he has significant dyspnes with walking 10 feet and seems to be progressing. He denies chest pain at this time and no chest pain with exertion. He states inhalers do not help his symptoms. No fever or chills. + sneezing. His pulse ox at home was in the 70s. Patient is seen tonaye lopez in the emergency center waiting for a bed on the cardiac stepdown unit. He has been started on aspirin, atorvastatin, and Lopressor versus atenolol. EKG sinus rhythm with incomplete right bundle branch block. Chest x-ray: 09/14: COPD. Left basilar atelectasis vs infiltrate. Interstitial changes may represent chronic lung disease rather than interstitial pneumonitis or venous congestion. WBC 4.8, hemoglobin 9.1, platelet count 83. Sodium 135, potassium 3, BUN 28 creatinine 0.68, CO2 20. Blood sugar 158. Troponins 0.088, 0.071 and 0.074. TSH 0.141 with normal free T41.07. Urinalysis large amount of leukoesterase, WBCs 56. Procalcitonin 0.22. Home cardiac medications: Atenolol 25 mg twice daily. Lexiscan Cardiolite stress test performed 02/17/2022 in the office revealed nondiagnostic electrocardiographic stress testing response to Lexiscan. Normal myocardial perfusion imaging. No evidence of any stress-induced ischemia. Hyperdynamic left ventricle. Echocardiogram performed on 02/17/2022 in the office revealed EF 50 to 55%. Mild concentric left ventricular hypertrophy. Aortic valve is calcified. Mild mitral regurgitation, mild tricuspid regurgitation. Pulmonary artery systolic pressure of 35 mmHg. 5/9 Yesterday, patient underwent cardiac catheterization with Dr. Joseph which revealed extremely calcified right and left coronary systems. Intermediate disease involving the distal RCA documented to be nonflow limiting by Doppler wire. Intermediate disease involving the mid LAD documented to be flow-limiting by Doppler wire. Patient subsequently underwent a PCI of the LAD with PILLO. Normal left-sided filling pressures. Patient states that he has some difficulty with breathing when he gets up and moves. Noted to have a little wheezing today. 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 Blood pressure 107/57, heart rate 98, pulse ox 99% on 3 L. Repeat blood work reveals hemoglobin 9.9, platelet count 98. Potassium 3.3, creatinine is 0.56. Echocardiogram reveals normal LV systolic function. Physical examination: Gen: This is an 78-year-old male in no acute distress VS: reviewed, blood pressure 109/60, pulse ox 98% on 3 L, heart rate 90. HEENT: Head is atraumatic, normocephalic. Pupils equal, round. Sclerae is anicteric. LUNGS: Mild wheezing. No intercostal retractions. HEART: Regular rate and rhythm. Systolic murmur. EXTREMITIES: No pedal edema. No calf tenderness. NEUROLOGICAL: Patient is awake, alert and oriented x3. Assessment: Unstable angina, non-ST elevated IL status post stent of the LAD Acute on chronic hypoxic respiratory failure secondary to COPD exacerbation Bicytopenia with thrombocytopenia and anemia Possible urinary tract infection History of coronary artery disease on CT scan and negative Lexiscan stress test Hypertension Dyslipidemia Remote history of tobacco use and dependence Diabetes mellitus type 2 Plan: Continue current cardiac medications: Aspirin, atorvastatin, Lopressor Repeat BMP in the morning Discontinue IV fluids Further recommendations to follow based upon clinical course Thank you kindly for this consultation. Nurse practitioner note has been reviewed, I agree with documented findings and plan of care. Patient was seen and examined. Objective - Vital Signs Vital signs: Vital Signs Temp 97.9 F 09/17/23 08:24 Pulse 98 09/17/23 11:45 Resp 18 09/17/23 11:45 BP 107/57 09/17/23 11:45 Pulse Ox 99 09/17/23 11:45 FiO2 Intake & Output 09/16/23 09/17/23 09/17/23 18:59 06:59 18:59 Intake Total 300 0 Output Total 300 Balance 300 -300 Weight 61.5 kg Intake: IV 300 Oral 0 Output: Urine 300 Other: Voiding Method Urinal Urinal # Voids 600 400 - Labs CBC & Chem 7: 09/17/23 08:05 09/17/23 08:05 Labs: Abnormal Lab Results - Last 24 Hours (Table) 09/16/23 09/16/23 09/16/23 Range/Units 09:37 09:37 13:26 RBC (4.30-5.90) m/uL Hgb (13.0-17.5) gm/dL Hct (39.0-53.0) % Plt Count (150-450) k/uL Lymphocytes # (1.0-4.8) k/uL Potassium 3.2 L (3.5-5.1) mmol/L Chloride 114 H (98-107) mmol/L Carbon Dioxide 19 L (22-30) mmol/L BUN 21 H (9-20) mg/dL Creatinine 0.50 L (0.66-1.25) mg/dL Glucose (74-99) mg/dL POC Glucose (mg/dL) 113 H (70-110) mg/dL Hemoglobin A1c 8.0 H (<=6.0) % Calcium 7.2 L (8.4-10.2) mg/dL 09/16/23 09/16/23 09/17/23 Range/Units 16:35 20:06 05:58 RBC (4.30-5.90) m/uL Hgb (13.0-17.5) gm/dL Hct (39.0-53.0) % Plt Count (150-450) k/uL Lymphocytes # (1.0-4.8) k/uL Potassium (3.5-5.1) mmol/L Chloride (98-107) mmol/L Carbon Dioxide (22-30) mmol/L BUN (9-20) mg/dL Creatinine (0.66-1.25) mg/dL Glucose (74-99) mg/dL POC Glucose (mg/dL) 231 H 196 H 221 H (70-110) mg/dL Hemoglobin A1c (<=6.0) % Calcium (8.4-10.2) mg/dL 09/17/23 09/17/23 Range/Units 08:05 08:05 RBC 3.06 L (4.30-5.90) m/uL Hgb 9.9 L (13.0-17.5) gm/dL Hct 28.6 L (39.0-53.0) % Plt Count 98 L (150-450) k/uL Lymphocytes # 0.4 L (1.0-4.8) k/uL Potassium 3.3 L (3.5-5.1) mmol/L Chloride 112 H (98-107) mmol/L Carbon Dioxide (22-30) mmol/L BUN (9-20) mg/dL Creatinine 0.56 L (0.66-1.25) mg/dL Glucose 103 H (74-99) mg/dL POC Glucose (mg/dL) (70-110) mg/dL Hemoglobin A1c (<=6.0) % Calcium 7.5 L (8.4-10.2) mg/dL Microbiology - Last 24 Hours (Table) 09/16/23 09:42 Gram Stain - Preliminary Sputum 09/14/23 10:40 Blood Culture - Preliminary Blood 09/14/23 10:25 Blood Culture - Preliminary Blood
[2023-09-17 17:04] LABS: Glucose,Whole Blood 253 mg/dL (70-110)
[2023-09-17] MEDS: droNABinol 2.5 MG CAP PO SCH (17:26)
--- NOTE | 2023-09-17 19:52 | P.PN ---
Subjective Progress Note Date: 09/17/23 (delayed charting seen at 1130) Patient is an 78-year-old male with known COPD with chronic hypoxic respiratory failure coronary 3 to 4 L nasal cannula, diabetes mellitus type 2, BPH who presented to the emergency department with complaints of shortness of breath. In the emergency department he underwent extensive evaluation. On arrival he was tachypneic with a respiratory rate of 28. Laboratory analysis was remarkable for platelets of 112 and troponin of 0.08. BNP was normal for age at 1050. Influenza A/B/RSV/COVID-19 testing was negative. Chest x-ray demonstrated COPD with left basilar atelectasis. He was started on prednisone. Cardiology was consulted and echocardiogram was ordered. He was also seen by pulmonary who felt that he may have a mild exacerbation of COPD. He was seen by cardiology who recommended cardiac catheterization which was completed on 09/16/2023 which showed significant disease to the LAD which was treated with drug-eluting stent.Echocardiogram showed preserved ejection fraction without significant wall motion abnormalities. Patient seen and examined at bedside with daughter present. He continued to feel short of breath today when he was up and walking around but felt better at rest. Daughter present at bedside asking for Marinol patient has used this multiple times in the past to help with weight gain and he is having decreased appetite now. Patient is worried about why he is still short of breath after his stent placement. Vital signs reviewed General: Nontoxic, no distress, appears at stated age Cardiovascular: S1S2 reg, no edema bilateral Lungs: Coarse breath sounds bilateral, no rhonchi, no rales, no accessory muscle use Abdominal: Soft, nontender to palpation, no guarding Ext: No gross muscle atrophy, no edema b/l lower extremities, no contractures Neuro: CN II-XI grossly intact, no focal neuro deficits Psych: Alert, oriented, appropriate affect Assessment/Plan: NSTEMI s/p PCI to the LAD Mild exacerbation of COPD Hypertension -Cardiac neurology note reviewed: Repeat basic metabolic profile in the morning, discontinue IV fluids. Aspirin 81 mg daily, Lipitor 80 mg daily, Brillenta 90 mg BID -Pulmonary note reviewed: Patient cleared for discharge once cleared by cardiology. -Prednisone 40 mg daily -DuoNebs every 4 hours as needed, Symbicort 2 puffs twice daily Diabetes mellitus type 2 -Metformin on hold -Sliding scale insulin -A1c 7.9 Constipation -MiraLAX 17 g daily as needed for constipation Weight loss -Marinol 2.5 mg twice daily Left arm swelling -Possible hematoma with increased bruising. Imaging: CTA of the chest: No evidence of pulmonary embolism, COPD with moderate to advanced emphysema and bronchial wall thickening as well as scattered endobronchial debris. Right hilar lymph nodes measuring 1.2 cm possibly reactive or postinflammatory, some LTH Venous Doppler: No evidence of DVT in bilateral lower extremities. Echogenic appearance with no color flow identified in the right common femoral artery. Echocardiogram: Ejection fraction 55 to 60%, no significant valvular disease Data Review: Labs reviewed from today include CBC and basic metabolic profile which are remarkable for hemoglobin 9.9, platelets 98, potassium 3.3. Blood sugars reviewed and all are well-controlled DVT prophylaxis: Heparin Anticipated discharge date: Pending clinical course Anticipated discharge place: Pending clinical course This dictation was prepared using [employer] voice recognition software. Though every attempt is made to correct errors during dictation some may still exist. Objective - Vital Signs Vital signs: Vital Signs Temp 98.2 F 09/17/23 19:43 Pulse 89 09/17/23 19:43 Resp 22 09/17/23 19:43 BP 126/66 09/17/23 19:43 Pulse Ox 97 09/17/23 19:43 FiO2 Intake & Output 09/17/23 09/17/23 09/18/23 06:59 18:59 06:59 Intake Total 0 120 Output Total 300 Balance -300 120 Weight 61.5 kg Intake: Oral 0 120 Output: Urine 300 Other: Voiding Method Urinal # Voids 400 1 # Bowel Movements 0 - Labs CBC & Chem 7: 09/17/23 08:05 09/17/23 08:05 Labs: Abnormal Lab Results - Last 24 Hours (Table) 09/16/23 09/17/23 09/17/23 Range/Units 20:06 05:58 08:05 RBC (4.30-5.90) m/uL Hgb (13.0-17.5) gm/dL Hct (39.0-53.0) % Plt Count (150-450) k/uL Lymphocytes # (1.0-4.8) k/uL Potassium 3.3 L (3.5-5.1) mmol/L Chloride 112 H (98-107) mmol/L Creatinine 0.56 L (0.66-1.25) mg/dL Glucose 103 H (74-99) mg/dL POC Glucose (mg/dL) 196 H 221 H (70-110) mg/dL Calcium 7.5 L (8.4-10.2) mg/dL 09/17/23 09/17/23 09/17/23 Range/Units 08:05 11:59 16:57 RBC 3.06 L (4.30-5.90) m/uL Hgb 9.9 L (13.0-17.5) gm/dL Hct 28.6 L (39.0-53.0) % Plt Count 98 L (150-450) k/uL Lymphocytes # 0.4 L (1.0-4.8) k/uL Potassium (3.5-5.1) mmol/L Chloride (98-107) mmol/L Creatinine (0.66-1.25) mg/dL Glucose (74-99) mg/dL POC Glucose (mg/dL) 176 H 253 H (70-110) mg/dL Calcium (8.4-10.2) mg/dL Microbiology - Last 24 Hours (Table) 09/16/23 09:42 Gram Stain - Preliminary Sputum 09/14/23 10:40 Blood Culture - Preliminary Blood 09/14/23 10:25 Blood Culture - Preliminary Blood
[2023-09-17 19:59] LABS: Glucose,Whole Blood 210 mg/dL (70-110)
[2023-09-17] MEDS: ONDANSETRON 4 MG/2 ML VIAL IVP STA (23:55)
[2023-09-18] MEDS: ALPRAZolam 0.25 MG TAB PO PRN (05:11)
[2023-09-18] MEDS: PANTOPRAZOLE 40 MG/10 ML VIAL IVP SCH ×2 (05:39→20:28)
[2023-09-18 05:51] LABS: Glucose,Whole Blood 173 mg/dL (70-110)
[2023-09-18] MEDS: methylPREDNISolone SOD SUCCI 125 MG/2 ML VIAL IV SCH (09:43)
[2023-09-18] MEDS: ONDANSETRON 4 MG/2 ML VIAL IVP PRN (09:43)
[2023-09-18 09:59] LABS: HCT 30.3 % (39.0-53.0); HGB 9.8 gm/dL (13.0-17.5); Hypochromasia Slight; MCH 31.4 pg (25.0-35.0); MCHC 32.2 g/dL (31.0-37.0); MCV 97.6 fL (80.0-100.0); Mean Platelet Volume 8.3; Platelet Count 137 k/uL (150-450); Poikilocytosis Slight; RBC 3.11 m/uL (4.30-5.90); RDW 15.5 % (11.5-15.5); WBC 7.2 k/uL (3.8-10.6)
[2023-09-18 10:30] LABS: African American GFR (CKD) >90 (>60 ml/min/1.73 sqM); Anion Gap 1 mmol/L; Blood Urea Nitrogen 29 mg/dL (9-20); Calcium 7.8 mg/dL (8.4-10.2); Carbon Dioxide 23 mmol/L (22-30); Chloride 113 mmol/L (98-107); Glucose 136 mg/dL (74-99); Non-African American GFR(CKD) >90 (>60 ml/min/1.73 sqM); Potassium 3.6 mmol/L (3.5-5.1); Sodium 137 mmol/L (137-145)
[2023-09-18 11:22] LABS: Glucose,Whole Blood 154 mg/dL (70-110)
--- NOTE | 2023-09-18 11:49 | P.PN ---
Subjective Progress Note Date: 09/18/23 This is an 78-year-old male patient with a known history of chronic obstructive pulmonary disease, former smoker, hypertension, depression, diabetes mellitus, on home oxygen at 3 L nasal cannula. Who presented to the emergency room earlier this morning with complaints of increasing shortness of breath, cough and congestion over the past 2 weeks. He also has dyspnea on exertion. His O2 saturations were in the 70s by his daughter and EMS was called. He is seen today in consultation in the emergency department. Currently sitting up on a stretcher. Awake and alert in no acute distress. He is maintaining O2 saturations up to 99% on 3 L/min per nasal cannula. He has been afebrile. Hemodynamically stable. X-ray of reveals evidence of COPD and left basilar atelectasis. White count 10.2. Hemoglobin 13.5. Platelets 112. Sodium 137. Potassium 3.5. Bicarb 27. BUN 32. Creatinine 0.78. Troponin 0.088, 0.071. proBNP 1050. Viral screen negative. The patient is seen today September 15, 2023 in follow-up in the emergency department. He is awake and alert in no acute distress. Maintaining O2 saturations in the 90s on 3 L nasal cannula. He is afebrile. Hemodynamically stable. He is not m uch improved today yet compared to yesterday. Still dyspneic with conversation. Still somewhat bronchospastic and wheezing. White count 4.8. Hemoglobin 11.1. Platelets 83,000. Sodium 135. Potassium 3.0. Bicarb 20. BUN 28. Creatinine 0.68. Glucose 180. Hemoglobin A1c 7.9. He remains on DuoNeb ventilations, Symbicort, prednisone taper. Antibiotics in the form of ceftriaxone and azithro mycin. Heparin for DVT prophylaxis. Patient was evaluated today on 09/16/2023, patient is doing about the same, continues to have shortness of breath, on physical examination, he sounded fairly clear, not much wheezing noted today compared to the day of admission however the patient remains symptomatic. Considering this I recommended a D- dimer, and if elevated I would recommend a CT angiogram of the chest.Patient underwent cardiac catheterization today, and he had successful stenting of mid LAD The patient is seen today September 17, 2023 in follow-up on the selective care unit. He is currently resting comfortably in bed. Awake and alert in no acute distress. He is maintaining O2 saturations up to 99% on 3 L/min per nasal cannula. He is afebrile. Hemodynamically stable. White count 4.2. Hemoglobin 9.9. Platelets 98,000. Sodium 137. Potassium 3.3. Bicarb 23. BUN 16. Creatinine 0.56. Glucose 103. CT angiogram ruled out pulmonary embolism. There is COPD with moderate to advanced emphysema. Bronchial wall thickening with scattered endobronchial debris consider bronchitis. Some prominent right hilar lymph nodes measuring up to 1.2 cm may be reactive. He is continued on prednisone. Remains on Mucinex. Heparin for DVT prophylaxis. The patient is seen today September 18, 2023 in follow-up on the selective care unit. He is resting comfortably in bed. He is maintaining good O2 saturations in the upper 90s on 3 L/min per nasal cannula. He has been afebrile. His sputum cul ture is showing presumptive Staph aureus and Daisha tropicalis. He has also having issues with coffee-ground emesis and black tarry stools. His initial hemoglobin was 13.5 and current hemoglobin is 9.8. Surgical consult placed. White count 7.2. Platelets 137. Sodium 137. Potassium 3.6. Bicarb 23. BUN 29. Creatinine 0.62. Glucose 136. Remains on DuoNeb inhalations, Symbicort, Solu-Medrol. He is initiated on Protonix 40 mg IVP twice daily. He also had some swelling in the left elbow. Ultrasound revealed soft tissue edema but no hematoma. Objective - Vital Signs Vital signs: Vital Signs Temp 98.2 F 09/18/23 09:15 Pulse 120 H 09/18/23 09:51 Resp 19 09/18/23 09:15 BP 114/61 09/18/23 09:15 Pulse Ox 97 09/18/23 09:37 FiO2 Intake & Output 09/17/23 09/18/23 09/18/23 18:59 06:59 18:59 Intake Total 120 0 0 Balance 120 0 0 Weight 61.5 kg Intake: Oral 120 0 0 Other: Voiding Method Urinal Urinal Urinal # Voids 1 1 # Bowel Movements 0 - Exam GENERAL EXAM: Alert, 78-year-old male, on 3 L nasal cannula, resting in bed, in no distress. HEAD: Normocephalic. EYES: Normal reaction of pupils, equal size. NOSE: Clear with pink turbinates. THROAT: No erythema or exudates. NECK: No masses, no JVD. CHEST: No chest wall deformity. LUNGS: Equal air entry with bilateral end expiratory wheeze. Diminished. CVS: S1 and S2 normal with no audible murmur, regular rhythm. ABDOMEN: No hepatosplenomegaly, normal bowel sounds, no guarding or rigidity. SPINE: No scoliosis or deformity SKIN: No rashes CENTRAL NERVOUS SYSTEM: No focal deficits, tone is normal in all 4 extremities. EXTREMITIES: Ecchymosis and edema without hematoma of the left upper extremity. No clubbing, no cyanosis. Peripheral pulses are intact. - Labs CBC & Chem 7: 09/18/23 09:46 09/18/23 09:46 Labs: Abnormal Lab Results - Last 24 Hours (Table) 09/17/23 09/17/23 09/17/23 Range/Units 11:59 16:57 19:55 RBC (4.30-5.90) m/uL Hgb (13.0-17.5) gm/dL Hct (39.0-53.0) % Plt Count (150-450) k/uL Chloride (98-107) mmol/L BUN (9-20) mg/dL Creatinine (0.66-1.25) mg/dL Glucose (74-99) mg/dL POC Glucose (mg/dL) 176 H 253 H 210 H (70-110) mg/dL Calcium (8.4-10.2) mg/dL 09/18/23 09/18/23 09/18/23 Range/Units 05:50 09:46 09:46 RBC 3.11 L (4.30-5.90) m/uL Hgb 9.8 L (13.0-17.5) gm/dL Hct 30.3 L (39.0-53.0) % Plt Count 137 L (150-450) k/uL Chloride 113 H (98-107) mmol/L BUN 29 H (9-20) mg/dL Creatinine 0.62 L (0.66-1.25) mg/dL Glucose 136 H (74-99) mg/dL POC Glucose (mg/dL) 173 H (70-110) mg/dL Calcium 7.8 L (8.4-10.2) mg/dL 09/18/23 Range/Units 11:20 RBC (4.30-5.90) m/uL Hgb (13.0-17.5) gm/dL Hct (39.0-53.0) % Plt Count (150-450) k/uL Chloride (98-107) mmol/L BUN (9-20) mg/dL Creatinine (0.66-1.25) mg/dL Glucose (74-99) mg/dL POC Glucose (mg/dL) 154 H (70-110) mg/dL Calcium (8.4-10.2) mg/dL Microbiology - Last 24 Hours (Table) 09/16/23 09:42 Gram Stain - Preliminary Sputum Sputum Culture - Preliminary Daisha tropicalis Presumptive Staph aureus 09/14/23 10:40 Blood Culture - Preliminary Blood 09/14/23 10:25 Blood Culture - Preliminary Blood Assessment and Plan Assessment: Acute on chronic hypoxic respiratory failure secondary to an acute exacerbation of chronic obstructive pulmonary disease. Chest x-ray reveals some atelectatic changes in the left lung base. Procalcitonin 0.22. Completed ceftriaxone and azithromycin. Follow-up chest x-ray continues show evidence of COPD and favoring left basilar atelectasis versus infiltrate. Interstitial changes may represent chronic lung disease. CT angiogram ruled out pulmonary embolism, some bronchial wall thickening and possible bronchitis with reactive lymph nodes. Sputum culture now showing on 09/18/2023 presumptive Staph aureus, Daisha tropicalis Chest pain in a patient found to have coronary artery disease status post stenting of the mid LAD on 09/16/2023 GI bleed, presenting hemoglobin 13.5, currently 9.8 Former smoker Oxygen dependent, steroid-dependent COPD Diabetes mellitus Hypertension Plan: The patient was seen and evaluated Sputum culture, labs and medications reviewed Initiate ceftriaxone ID consult for antibiotics Continue bronchodilators, steroids Protonix has been added Surgical services consulted regarding GI bleed Remains on 3 L nasal cannula, titrate as tolerated Plan will be for subacute rehab post discharge at [facility] This patient was seen independently by the pulmonary nurse practitioner addressing pulmonary issues I have personally seen and examined the patient, performed the documentation and the assessment and plan as written. Number of minutes spent on the visit: 25.
--- NOTE | 2023-09-18 12:27 | P.GSCN ---
History of Present Illness Consult date: 09/18/23 History of present illness: CHIEF COMPLAINT: Shortness of breath Reason for consult GI bleed HISTORY OF PRESENT ILLNESS: This is a 78-year-old male who presented with sh ortness of breath he was diagnosed with a non-ST elevated CT as he is status post stent to the LAD. Also with a mild COPD exacerbation. Patient is on Brilinta after his stent. Last night patient started having episodes of coffee- ground emesis and black stools. Hemoglobin on admission was 13.5. Hemoglobin is now down to 9.9. Patient reports no prior history of EGD. Colonoscopy he reports is over 10 years and reports it is negative. Patient denies any abdominal pain. Patient has been tachycardic when he moves per nursing staff. Patient seen and examined with Dr. Penn PAST MEDICAL HISTORY: COPD, Hypertension PAST SURGICAL HISTORY: See below MEDICATIONS: See below ALLERGIES: See below SOCIAL HISTORY: No illicit drug use. REVIEW OF SYSTEMS: CONSTITUTIONAL: Denies fever or chills. HEENT: Denies blurred vision, vision changes, or eye pain. Denies hemoptysis CARDIOVASCULAR: Denies chest pain or pressure. RESPIRATORY: No shortness of breath. GASTROINTESTINAL: See HPI for pertinent findings HEMATOLOGIC: Denies bleeding disorders. GENITOURINARY: Denies any blood in urine or increased urinary frequency. SKIN: Denies pruitis. Denies rash. PHYSICAL EXAM: VITAL SIGNS: Reviewed GENERAL: Well-developed in no acute distress. HEENT: No sclera icterus. Extraocular movements grossly intact. Moist buccal mucosa. Head is atraumatic, normocephalic. No nasal drainage. ABDOMEN: Soft. Nondistended. Nontender NEUROLOGIC: Alert and oriented. Cranial nerves II through XII grossly intact. LABORATORY DATA: WBC 7.2 Hgb 13.5 on admission now down to 9.8 platelets 137 sodium 137 potassium 3.6 creatinine 0.62 IMAGING: Chest CTA reports no PE. COPD with emphysema ASSESSMENT: 1. Acute GI bleed with coffee-ground emesis and black tarry stools likely due to Brilenta 2. Non-ST elevated CT status post stent to the LAD during this admission PLAN: -Hold Brilinta and Aspirin -Continue to monitor hemoglobin -Continue to monitor for any signs or symptoms of bleeding -Continue Protonix 40 mg IV twice a day -Downgrade diet to clear liquids -Continue to monitor Physician Us Administrative Law Judge note has been reviewed by physician. Signing provider agrees with the documented findings, assessment, and plan of care. 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),"HEAT STROKE" 1969' History of Any Multi-Drug Resistant Organisms: None Reported Past Surgical History: No Surgical Hx Reported Additional Past Surgical History / Comment(s): cataract surgery Past Anesthesia/Blood Transfusion Reactions: No Reported Reaction Smoking Status: Former smoker - Past Family History Brother(s) Family Medical History: Cancer Medications and Allergies Home Medications Medication Instructions Recorded Confirmed Type predniSONE 5 mg PO DAILY 08/14/15 09/14/23 History Albuterol Nebulized [Ventolin 2.5 mg INHALATION RT-QID 09/14/23 09/14/23 History Nebulized] Albuterol Sulfate [Albuterol 2 puff PO RT-Q4H PRN 09/14/23 09/14/23 History Sulfate Hfa] Budesonide/Formoterol Fumarate 2 puff INHALATION RT-BID 09/14/23 09/14/23 History [Symbicort 160-4.5 Mcg Inhaler] Ipratropium Nebulized [Atrovent 0.5 mg INHALATION RT-QID 09/14/23 09/14/23 History Nebulized 0.2 MG/ML] Tamsulosin HCl [Flomax] 0.4 mg PO BID 09/14/23 09/14/23 History atenoloL 25 mg PO BID 09/14/23 09/14/23 History metFORMIN HCL [Glucophage] 500 mg PO BID 09/14/23 09/14/23 History Allergies Allergy/AdvReac Type Severity Reaction Status Date / Time No Known Allergies Allergy Verified 09/14/23 10:58 Surgical - Exam Vital Signs Temp Pulse Resp BP Pulse Ox 97.7 F 99 28 H 120/65 97 09/14/23 08:39 09/14/23 08:39 09/14/23 08:39 09/14/23 08:39 09/14/23 08:39 Results - Labs 09/18/23 09:46 09/18/23 09:46 Abnormal Lab Results - Last 24 Hours (Table) 09/17/23 09/17/2309/17/24 Range/Units 16:57 19:55 05:50 RBC (4.30-5.90) m/uL Hgb (13.0-17.5) gm/dL Hct (39.0-53.0) % Plt Count (150-450) k/uL Chloride (98-107) mmol/L BUN (9-20) mg/dL Creatinine (0.66-1.25) mg/dL Glucose (74-99) mg/dL POC Glucose (mg/dL) 253 H 210 H 173 H (70-110) mg/dL Calcium (8.4-10.2) mg/dL 09/18/23 09/18/23 09/18/23 Range/Units 09:46 09:46 11:20 RBC 3.11 L (4.30-5.90) m/uL Hgb 9.8 L (13.0-17.5) gm/dL Hct 30.3 L (39.0-53.0) % Plt Count 137 L (150-450) k/uL Chloride 113 H (98-107) mmol/L BUN 29 H (9-20) mg/dL Creatinine 0.62 L (0.66-1.25) mg/dL Glucose 136 H (74-99) mg/dL POC Glucose (mg/dL) 154 H (70-110) mg/dL Calcium 7.8 L (8.4-10.2) mg/dL Microbiology - Last 24 Hours (Table) 09/16/23 09:42 Gram Stain - Preliminary Sputum Sputum Culture - Preliminary Daisha tropicalis Presumptive Staph aureus 09/14/23 10:40 Blood Culture - Preliminary Blood 09/14/23 10:25 Blood Culture - Preliminary Blood Diabetes panel 09/18/23 Range/Units 09:46 Sodium 137 (137-145) mmol/L Potassium 3.6 (3.5-5.1) mmol/L Chloride 113 H (98-107) mmol/L Carbon Dioxide 23 (22-30) mmol/L BUN 29 H (9-20) mg/dL Creatinine 0.62 L (0.66-1.25) mg/dL Glucose 136 H (74-99) mg/dL Calcium 7.8 L (8.4-10.2) mg/dL Calcium panel 05/10/24 Range/Units 09:46 Calcium 7.8 L (8.4-10.2) mg/dL Pituitary panel 09/18/23 Range/Units 09:46 Sodium 137 (137-145) mmol/L Potassium 3.6 (3.5-5.1) mmol/L Chloride 113 H (98-107) mmol/L Carbon Dioxide 23 (22-30) mmol/L BUN 29 H (9-20) mg/dL Creatinine 0.62 L (0.66-1.25) mg/dL Glucose 136 H (74-99) mg/dL Calcium 7.8 L (8.4-10.2) mg/dL Adrenal panel 09/18/23 Range/Units 09:46 Sodium 137 (137-145) mmol/L Potassium 3.6 (3.5-5.1) mmol/L Chloride 113 H (98-107) mmol/L Carbon Dioxide 23 (22-30) mmol/L BUN 29 H (9-20) mg/dL Creatinine 0.62 L (0.66-1.25) mg/dL Glucose 136 H (74-99) mg/dL Calcium 7.8 L (8.4-10.2) mg/dL
--- NOTE | 2023-09-18 12:49 | P.PN ---
Subjective Progress Note Date: 09/18/23 Reason for Consult (text): Elevated troponin History of present illness: History of present illness: This is an 86-year-old male patient of Dr. Joseph with past medical history of coronary artery disease based on CT scan, hypertension, dyslipidemia, remote history of tobacco use and dependence, chronic obstructive pulmonary disease, diabetes, chronic hypoxic respiratory failure on home O2 at 3 L. We have been asked to evaluate the patient for elevated troponins. Patient presented to the emergency center due to increasing shortness of breath, cough, congestion that had worsened over the past 1 month and he states that he is "just sick of it." He also has dyspnea on exertion especially with walking no more than 50 feet for several months. His daughter states that he has significant dyspnes with walking 10 feet and seems to be progressing. He denies chest pain at this time and no chest pain with exertion. He states inhalers do not help his symptoms. No fever or chills. + sneezing. His pulse ox at home was in the 70s. Patient is seen tonaye lopez in the emergency center waiting for a bed on the cardiac stepdown unit. He has been started on aspirin, atorvastatin, and Lopressor versus atenolol. EKG sinus rhythm with incomplete right bundle branch block. Chest x-ray: 09/14: COPD. Left basilar atelectasis vs infiltrate. Interstitial changes may represent chronic lung disease rather than interstitial pneumonitis or venous congestion. WBC 4.8, hemoglobin 9.1, platelet count 83. Sodium 135, potassium 3, BUN 28 creatinine 0.68, CO2 20. Blood sugar 158. Troponins 0.088, 0.071 and 0.074. TSH 0.141 with normal free T41.07. Urinalysis large amount of leukoesterase, WBCs 56. Procalcitonin 0.22. Home cardiac medications: Atenolol 25 mg twice daily. Lexiscan Cardiolite stress test performed 02/17/2022 in the office revealed nondiagnostic electrocardiographic stress testing response to Lexiscan. Normal myocardial perfusion imaging. No evidence of any stress-induced ischemia. Hyperdynamic left ventricle. Echocardiogram performed on 02/17/2022 in the office revealed EF 50 to 55%. Mild concentric left ventricular hypertrophy. Aortic valve is calcified. Mild mitral regurgitation, mild tricuspid regurgitation. Pulmonary artery systolic pressure of 35 mmHg. 5/9 Yesterday, patient underwent cardiac catheterization with Dr. Joseph which revealed extremely calcified right and left coronary systems. Intermediate disease involving the distal RCA documented to be nonflow limiting by Doppler wire. Intermediate disease involving the mid LAD documented to be flow-limiting by Doppler wire. Patient subsequently underwent a PCI of the LAD with PILLO. Normal left-sided filling pressures. Patient states that he has some difficulty with breathing when he gets up and moves. Noted to have a little wheezing today. laboratory monitor is sinus rhythm. Blood pressure 107/57, heart rate 98, pulse ox 99% on 3 L. Repeat blood work reveals hemoglobin 9.9, platelet count 98. Potassium 3.3, creatinine is 0.56. Echocardiogram reveals normal LV systolic function. 09/17 According to patient's nurse, he started having tarry stools last evening. A consult with general surgery has been added and Brilinta placed on hold. Patient states he feels well now but he had a rough night and he states he had some nausea yesterday. Blood pressure 114/61, heart rate [id number], pulse ox 97% on 3 L nasal cannula. Physical examination: Gen: This is an 78-year-old male in no acute distress VS: reviewed HEENT: Head is atraumatic, normocephalic. Pupils equal, round. Sclerae is anicteric. LUNGS: Mild wheezing. No intercostal retractions. HEART: Regular rate and rhythm. Systolic murmur. EXTREMITIES: No pedal edema. No calf tenderness. NEUROLOGICAL: Patient is awake, alert and oriented x3. Assessment: Unstable angina, non-ST elevated SD status post stent of the LAD Acute on chronic hypoxic respiratory failure secondary to COPD exacerbation Bicytopenia with thrombocytopenia and anemia Possible urinary tract infection History of coronary artery disease on CT scan and negative Lexiscan stress test Hypertension Dyslipidemia Remote history of tobacco use and dependence Diabetes mellitus type 2 Acute GI bleed Plan: Continue current cardiac medications: Aspirin, atorvastatin, Lopressor Okay to hold Brilinta, will plan to start Plavix once cleared by general surgery Please continue patient on aspirin 81 mg daily Further recommendations to follow based upon clinical course Nurse practitioner note has been reviewed, I agree with documented findings and plan of care. Patient was seen and examined. Objective - Vital Signs Vital signs: Vital Signs Temp 98.2 F 09/18/23 09:15 Pulse 120 H 09/18/23 09:51 Resp 19 09/18/23 09:15 BP 114/61 09/18/23 09:15 Pulse Ox 97 09/18/23 09:37 FiO2 Intake & Output 09/17/23 09/18/23 09/18/23 18:59 06:59 18:59 Intake Total 120 0 0 Balance 120 0 0 Weight 61.5 kg Intake: Oral 120 0 0 Other: Voiding Method Urinal Urinal Urinal # Voids 1 1 # Bowel Movements 0 - Labs CBC & Chem 7: 09/18/23 09:46 09/18/23 09:46 Labs: Abnormal Lab Results - Last 24 Hours (Table) 09/17/23 09/17/23 09/17/23 Range/Units 11:59 16:57 19:55 RBC (4.30-5.90) m/uL Hgb (13.0-17.5) gm/dL Hct (39.0-53.0) % Plt Count (150-450) k/uL Chloride (98-107) mmol/L BUN (9-20) mg/dL Creatinine (0.66-1.25) mg/dL Glucose (74-99) mg/dL POC Glucose (mg/dL) 176 H 253 H 210 H (70-110) mg/dL Calcium (8.4-10.2) mg/dL 09/18/23 09/18/23 09/18/23 Range/Units 05:50 09:46 09:46 RBC 3.11 L (4.30-5.90) m/uL Hgb 9.8 L (13.0-17.5) gm/dL Hct 30.3 L (39.0-53.0) % Plt Count 137 L (150-450) k/uL Chloride 113 H (98-107) mmol/L BUN 29 H (9-20) mg/dL Creatinine 0.62 L (0.66-1.25) mg/dL Glucose 136 H (74-99) mg/dL POC Glucose (mg/dL) 173 H (70-110) mg/dL Calcium 7.8 L (8.4-10.2) mg/dL Microbiology - Last 24 Hours (Table) 09/16/23 09:42 Gram Stain - Preliminary Sputum Sputum Culture - Preliminary Daisha tropicalis Presumptive Staph aureus 09/14/23 10:40 Blood Culture - Preliminary Blood 09/14/23 10:25 Blood Culture - Preliminary Blood
[2023-09-18 16:12] LABS: Glucose,Whole Blood 180 mg/dL (70-110)
--- NOTE | 2023-09-18 19:23 | P.PN ---
Subjective Progress Note Date: 09/18/23 (delayed charting seen at 0905) Patient is an 78-year-old male with known COPD with chronic hypoxic respiratory failure coronary 3 to 4 L nasal cannula, diabetes mellitus type 2, BPH who presented to the emergency department with complaints of shortness of breath. In the emergency department he underwent extensive evaluation. On arrival he was tachypneic with a respiratory rate of 28. Laboratory analysis was remarkable for platelets of 112 and troponin of 0.08. BNP was normal for age at 1050. Influenza A/B/RSV/COVID-19 testing was negative. Chest x-ray demonstrated COPD with left basilar atelectasis. He was started on prednisone. Cardiology was consulted and echocardiogram was ordered. He was also seen by pulmonary who felt that he may have a mild exacerbation of COPD. He was seen by cardiology who recommended cardiac catheterization which was completed on 09/16/2023 which showed significant disease to the LAD which was treated with drug-eluting stent.Echocardiogram showed preserved ejection fraction without significant wall motion abnormalities. Patient seen and examined at bedside. He is now having coffee-ground emesis as well as dark tarry stools per nursing. He is complaining of shortness of breath that is the same or worse than yesterday. He is not feeling nauseated now but was feeling nauseated earlier. Denies any abdominal discomfort. Daughter present at bedside. Case discussed at length that I am concerned he is not having a GI bleed after be started on aspirin and Brilinta. That I am recommending a surgical consultation. I am recommending transitioning steroids from oral to IV. In agreement with current plan of care. Vital signs reviewed General: Nontoxic, no distress, appears at stated age, bruising Cardiovascular: S1S2 reg, no edema bilateral Lungs: wheeze bilateral,, no accessory muscle use Abdominal: Soft, nontender to palpation, no guarding Ext: No gross muscle atrophy, no edema b/l lower extremities, no contractures Neuro: CN II-XI grossly intact, no focal neuro deficits Psych: Alert, oriented, appropriate affect Assessment/Plan: NSTEMI s/p PCI to the LAD Mild exacerbation of COPD Staph aureus bronchitis Hypertension -Cardiology note reviewed. Okay to hold Brilinta. Continue aspirin. Will start Plavix once cleared by general surgery. -Patient had received a total of 3 days of Zithromax and 2 days of Rocephin. -Stop oral prednisone, start Solu-Medrol 60 Q6 -Pulmonary note reviewed: Sputum culture. Start ceftriaxone. Consult infectious disease. -Aspirin 81 mg daily, Lipitor 80 mg daily, -DuoNebs every 4 hours as needed, Symbicort 2 puffs twice daily Melena -Probable GI bleed -Protonix 40 mg IV push twice daily -Consult surgery - CBC at 1900 and in AM Possible C. 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 Right hilar lymph nodes measuring 1.2 cm possibly reactive or postinflammatory, some LTH Venous Doppler: No evidence of DVT in bilateral lower extremities. Echogenic appearance with no color flow identified in the right common femoral artery. Echocardiogram: Ejection fraction 55 to 60%, no significant valvular disease Data Review: Labs reviewed from today include CBC, coags, and CMP which are remarkable for hemoglobin 9.8, platelets 137, chloride 113, BUN 29, creatinine 0.69. Fecal occult blood was positive. DVT prophylaxis: Heparin Anticipated discharge date: Pending clinical course Anticipated discharge place: Pending clinical course This dictation was prepared using [employer] voice recognition software. Though every attempt is made to correct errors during dictation some may still exist. Objective - Vital Signs Vital signs: Vital Signs Temp 98.4 F 09/18/23 12:40 Pulse 110 H 09/18/23 16:45 Resp 18 09/18/23 12:40 BP 121/73 09/18/23 12:40 Pulse Ox 98 09/18/23 12:40 FiO2 Intake & Output 09/18/23 09/18/23 09/19/23 06:59 18:59 06:59 Intake Total 0 0 Balance 0 0 Intake: Oral 0 0 Other: Voiding Method Urinal Urinal # Voids 1 - Labs CBC & Chem 7: 09/18/23 09:46 09/18/23 09:46 Labs: Abnormal Lab Results - Last 24 Hours (Table) 09/17/23 09/18/23 09/18/23 Range/Units 19:55 05:00 05:50 RBC (4.30-5.90) m/uL Hgb (13.0-17.5) gm/dL Hct (39.0-53.0) % Plt Count (150-450) k/uL Chloride (98-107) mmol/L BUN (9-20) mg/dL Creatinine (0.66-1.25) mg/dL Glucose (74-99) mg/dL POC Glucose (mg/dL) 210 H 173 H (70-110) mg/dL Calcium (8.4-10.2) mg/dL C. difficile (EIA) Intrp Positive A (Negative) 09/18/23 09/18/23 09/18/23 Range/Units 09:46 09:46 11:20 RBC 3.11 L (4.30-5.90) m/uL Hgb 9.8 L (13.0-17.5) gm/dL Hct 30.3 L (39.0-53.0) % Plt Count 137 L (150-450) k/uL Chloride 113 H (98-107) mmol/L BUN 29 H (9-20) mg/dL Creatinine 0.62 L (0.66-1.25) mg/dL Glucose 136 H (74-99) mg/dL POC Glucose (mg/dL) 154 H (70-110) mg/dL Calcium 7.8 L (8.4-10.2) mg/dL C. difficile (EIA) Intrp (Negative) 09/18/23 Range/Units 16:10 RBC (4.30-5.90) m/uL Hgb (13.0-17.5) gm/dL Hct (39.0-53.0) % Plt Count (150-450) k/uL Chloride (98-107) mmol/L BUN (9-20) mg/dL Creatinine (0.66-1.25) mg/dL Glucose (74-99) mg/dL POC Glucose (mg/dL) 180 H (70-110) mg/dL Calcium (8.4-10.2) mg/dL C. difficile (EIA) Intrp (Negative) Microbiology - Last 24 Hours (Table) 09/16/23 09:42 Gram Stain - Preliminary Sputum Sputum Culture - Preliminary Daisha tropicalis Presumptive Staph aureus 09/14/23 10:40 Blood Culture - Preliminary Blood 09/14/23 10:25 Blood Culture - Preliminary Blood
[2023-09-18 20:00] LABS: HCT 27.2 % (39.0-53.0); HGB 8.9 gm/dL (13.0-17.5); MCH 31.1 pg (25.0-35.0); MCHC 32.9 g/dL (31.0-37.0); MCV 94.5 fL (80.0-100.0); Mean Platelet Volume 7.5; Platelet Count 103 k/uL (150-450); RBC 2.87 m/uL (4.30-5.90); WBC 5.5 k/uL (3.8-10.6)
[2023-09-18 20:26] LABS: Glucose,Whole Blood 185 mg/dL (70-110)
[2023-09-18] MEDS: ALPRAZolam 0.5 MG TAB PO PRN (20:27)
[2023-09-18] MEDS: VANCOMYCIN 125 MG CAPSULE PO SCH ×2 (20:27→22:55)
[2023-09-19 06:07] LABS: Glucose,Whole Blood 296 mg/dL (70-110)
[2023-09-19] MEDS: ASPIRIN 81 MG PO SCH (09:34)
[2023-09-19 09:45] LABS: African American GFR (CKD) >90 (>60 ml/min/1.73 sqM); Anion Gap 3 mmol/L; Blood Urea Nitrogen 28 mg/dL (9-20); Calcium 7.6 mg/dL (8.4-10.2); Carbon Dioxide 21 mmol/L (22-30); Chloride 113 mmol/L (98-107); Glucose 149 mg/dL (74-99); Magnesium 2.2 mg/dL (1.6-2.3); Non-African American GFR(CKD) >90 (>60 ml/min/1.73 sqM); Potassium 3.5 mmol/L (3.5-5.1); Sodium 137 mmol/L (137-145)
[2023-09-19 09:57] LABS: HGB 8.9 gm/dL (13.0-17.5); MCH 32.3 pg (25.0-35.0); MCHC 35.6 g/dL (31.0-37.0); MCV 90.9 fL (80.0-100.0); Poikilocytosis Slight; RBC 2.75 m/uL (4.30-5.90); RDW 14.9 % (11.5-15.5); WBC 4.1 k/uL (3.8-10.6)
[2023-09-19 10:34] LABS: Platelet Count 90 k/uL (150-450)
[2023-09-19 10:36] LABS: Band Neutrophils % 1 %; Lymphocytes # (M) 0.49 k/uL (1.0-4.8); Monocytes # (M) 0.04 k/uL (0-1.0); Neutrophils % (M) 86 %; Nucleated Red Blood Cells 0 /100 WBC (0-0); Total Cells Counted 100
[2023-09-19 10:37] LABS: Crenated RBC Present
[2023-09-19 11:44] LABS: Glucose,Whole Blood 154 mg/dL (70-110)
--- NOTE | 2023-09-19 14:07 | P.PN ---
Subjective Progress Note Date: 09/19/23 (delayed charting seen at 0945) Patient is an 78-year-old male with known COPD with chronic hypoxic respiratory failure coronary 3 to 4 L nasal cannula, diabetes mellitus type 2, BPH who presented to the emergency department with complaints of shortness of breath. In the emergency department he underwent extensive evaluation. On arrival he was tachypneic with a respiratory rate of 28. Laboratory analysis was remarkable for platelets of 112 and troponin of 0.08. BNP was normal for age at 1050. Influenza A/B/RSV/COVID-19 testing was negative. Chest x-ray demonstrated COPD with left basilar atelectasis. He was started on prednisone. Cardiology was consulted and echocardiogram was ordered. He was also seen by pulmonary who felt that he may have a mild exacerbation of COPD. He was seen by cardiology who recommended cardiac catheterization which was completed on 09/16/2023 which showed significant disease to the LAD which was treated with drug-eluting stent. Echocardiogram showed preserved ejection fraction without significant wall motion abnormalities. He then started having dark tarry stools. It was initially felt to be a GI bleed and patient was provided on IV Protonix. General surgery was consulted. He also had C. difficile come back positive which is felt to possibly be colonization versus acute infection. Infectious disease was consulted. Sputum culture came back with MRSA and Daisha. Patient seen and examined at bedside with daughter present. He believes his breathing might be somewhat better than yesterday. Denies any nausea, vomiting, additional bowel movements, or belly pain. We went into detail about possibility of C. difficile infection versus GI bleed. All questions answered. Vital signs reviewed General: Nontoxic, no distress, appears at stated age, bruising Cardiovascular: S1S2 reg, no edema bilateral Lungs: wheeze bilateral,, no accessory muscle use Abdominal: Soft, nontender to palpation, no guarding Ext: No gross muscle atrophy, no edema b/l lower extremities, no contractures Neuro: CN II-XI grossly intact, no focal neuro deficits Psych: Alert, oriented, appropriate affect Assessment/Plan: NSTEMI s/p PCI to the LAD Mild exacerbation of COPD MRSA Bronchitis bronchitis Hypertension -Solu-Medrol 60mf IV Q6 -Aspirin 81 mg daily, Lipitor 80 mg daily, -DuoNebs every 4 hours as needed, Symbicort 2 puffs twice daily - Now MRSA, stop ceftriaxone, start bactrim. (Patient had received a total of 3 days of Zithromax and 3 days of Rocephin) -Await further cardiology recommendations -Await further pulmonary recommendations -Await infectious disease consultation Melena -Probable GI bleed -Protonix 40 mg IV push twice daily -Await further surgery recommendations - CBC in AM Possible C. difficile, although patient has no fevers or leukocytosis and per nursing stool is formed -Consult Infectious disease -Vancomycin 125 mg oral twice daily D # 2 Diabetes mellitus type 2 -Metformin on hold -Sliding scale insulin -A1c 7.9 Weight loss -Marinol 2.5 mg twice daily Left arm swelling, hematoma ruled out Constipation, resolved Imaging: None new Hospital Course Imaging: CTA of the chest: No evidence of pulmonary embolism, COPD with moderate to advan roya emphysema and bronchial wall thickening as well as scattered endobronchial debris. Right hilar lymph nodes measuring 1.2 cm possibly reactive or postinflammatory, some LTH Venous Doppler: No evidence of DVT in bilateral lower extremities. Echogenic appearance with no color flow identified in the right common femoral artery. Echocardiogram: Ejection fraction 55 to 60%, no significant valvular disease Data Review: Labs reviewed from this morning include CBC and BMP which are remarkable for hemoglobin 8.9, platelets 90, chloride 113, carbon dioxide 21, BUN 28, creat inine 0.48, blood sugar 149. DVT prophylaxis: Heparin Anticipated discharge date: Pending clinical course Anticipated discharge place: Pending clinical course This dictation was prepared using [employer] voice recognition software. Though every attempt is made to correct errors during dictation some may still exist. Objective - Vital Signs Vital signs: Vital Signs Temp 97.7 F 09/19/23 12:15 Pulse 94 09/19/23 12:15 Resp 17 09/19/23 12:15 BP 146/63 09/19/23 12:15 Pulse Ox 96 09/19/23 12:15 FiO2 Intake & Output 09/18/23 09/19/23 09/19/23 18:59 06:59 18:59 Intake Total 0 40 360 Output Total 150 0 Balance 0 -110 360 Intake: Oral 0 40 360 Output: Gastric Drainage 0 Drainage 50 Right Lateral Abdomen 50 Urine 100 0 Stool 0 Urine/Stool Mix 0 Emesis 0 Oral Regurgitation 0 Other 0 Other: Voiding Method Urinal Urinal Urinal # Voids 1 0 # Bowel Movements 0 - Labs CBC & Chem 7: 09/19/23 08:46 09/19/23 08:46 Labs: Abnormal Lab Results - Last 24 Hours (Table) 09/18/23 09/18/23 09/18/23 Range/Units 05:00 16:10 19:14 RBC 2.87 L (4.30-5.90) m/uL Hgb 8.9 L (13.0-17.5) gm/dL Hct 27.2 L (39.0-53.0) % Plt Count 103 L (150-450) k/uL Lymphocytes # (Manual) (1.0-4.8) k/uL Chloride (98-107) mmol/L Carbon Dioxide (22-30) mmol/L BUN (9-20) mg/dL Creatinine (0.66-1.25) mg/dL Glucose (74-99) mg/dL POC Glucose (mg/dL) 180 H (70-110) mg/dL Calcium (8.4-10.2) mg/dL C. difficile (EIA) Intrp Positive A (Negative) 09/18/23 09/19/23 09/19/23 Range/Units 20:25 06:05 08:46 RBC 2.75 L (4.30-5.90) m/uL Hgb 8.9 L (13.0-17.5) gm/dL Hct 25.0 L (39.0-53.0) % Plt Count 90 L (150-450) k/uL Lymphocytes # (Manual) 0.49 L (1.0-4.8) k/uL Chloride (98-107) mmol/L Carbon Dioxide (22-30) mmol/L BUN (9-20) mg/dL Creatinine (0.66-1.25) mg/dL Glucose (74-99) mg/dL POC Glucose (mg/dL) 185 H 296 H (70-110) mg/dL Calcium (8.4-10.2) mg/dL C. difficile (EIA) Intrp (Negative) 09/19/23 09/19/23 Range/Units 08:46 11:40 RBC (4.30-5.90) m/uL Hgb (13.0-17.5) gm/dL Hct (39.0-53.0) % Plt Count (150-450) k/uL Lymphocytes # (Manual) (1.0-4.8) k/uL Chloride 113 H (98-107) mmol/L Carbon Dioxide 21 L (22-30) mmol/L BUN 28 H (9-20) mg/dL Creatinine 0.48 L (0.66-1.25) mg/dL Glucose 149 H (74-99) mg/dL POC Glucose (mg/dL) 154 H (70-110) mg/dL Calcium 7.6 L (8.4-10.2) mg/dL C. difficile (EIA) Intrp (Negative) Microbiology - Last 24 Hours (Table) 09/16/23 09:42 Gram Stain - Final Sputum Sputum Culture - Final Daisha tropicalis Methicillin resist S. aureus
--- NOTE | 2023-09-19 14:32 | P.PN ---
Subjective Progress Note Date: 09/19/23 Reason for Consult (text): Elevated troponin History of present illness: History of present illness: This is an 86-year-old male patient of Dr. Joseph with past medical history of coronary artery disease based on CT scan, hypertension, dyslipidemia, remote history of tobacco use and dependence, chronic obstructive pulmonary disease, diabetes, chronic hypoxic respiratory failure on home O2 at 3 L. We have been asked to evaluate the patient for elevated troponins. Patient presented to the emergency center due to increasing shortness of breath, cough, congestion that had worsened over the past 1 month and he states that he is "just sick of it." He also has dyspnea on exertion especially with walking no more than 50 feet for several months. His daughter states that he has significant dyspnes with walking 10 feet and seems to be progressing. He denies chest pain at this time and no chest pain with exertion. He states inhalers do not help his symptoms. No fever or chills. + sneezing. His pulse ox at home was in the 70s. Patient is seen tonaye lopez in the emergency center waiting for a bed on the cardiac stepdown unit. He has been started on aspirin, atorvastatin, and Lopressor versus atenolol. EKG sinus rhythm with incomplete right bundle branch block. Chest x-ray: 09/14: COPD. Left basilar atelectasis vs infiltrate. Interstitial changes may represent chronic lung disease rather than interstitial pneumonitis or venous congestion. WBC 4.8, hemoglobin 9.1, platelet count 83. Sodium 135, potassium 3, BUN 28 creatinine 0.68, CO2 20. Blood sugar 158. Troponins 0.088, 0.071 and 0.074. TSH 0.141 with normal free T41.07. Urinalysis large amount of leukoesterase, WBCs 56. Procalcitonin 0.22. Home cardiac medications: Atenolol 25 mg twice daily. Lexiscan Cardiolite stress test performed 02/17/2022 in the office revealed nondiagnostic electrocardiographic stress testing response to Lexiscan. Normal myocardial perfusion imaging. No evidence of any stress-induced ischemia. Hyperdynamic left ventricle. Echocardiogram performed on 02/17/2022 in the office revealed EF 50 to 55%. Mild concentric left ventricular hypertrophy. Aortic valve is calcified. Mild mitral regurgitation, mild tricuspid regurgitation. Pulmonary artery systolic pressure of 35 mmHg. 5/9 Yesterday, patient underwent cardiac catheterization with Dr. Joseph which revealed extremely calcified right and left coronary systems. Intermediate disease involving the distal RCA documented to be nonflow limiting by Doppler wire. Intermediate disease involving the mid LAD documented to be flow-limiting by Doppler wire. Patient subsequently underwent a PCI of the LAD with PILLO. Normal left-sided filling pressures. Patient states that he has some difficulty with breathing when he gets up and moves. Noted to have a little wheezing today. surveillance monitor is sinus rhythm. Blood pressure 107/57, heart rate 98, pulse ox 99% on 3 L. Repeat blood work reveals hemoglobin 9.9, platelet count 98. Potassium 3.3, creatinine is 0.56. Echocardiogram reveals normal LV systolic function. 09/17 According to patient's nurse, he started having tarry stools last evening. A consult with general surgery has been added and Brilinta placed on hold. Patient states he feels well now but he had a rough night and he states he had some nausea yesterday. Blood pressure 114/61, heart rate [id number], pulse ox 97% on 3 L nasal cannula. 09/18 Patient was initially planned for EGD due to tarry stools but subsequently found to have C. difficile colitis. Patient remains off Brilinta and continued on aspirin only for now. We would plan to resume Plavix as soon as possible. Patient denies having any chest pain. Blood pressure 146/63, heart rate 94, pulse ox 96% on 3 L nasal cannula. Telemetry is a sinus rhythm. Repeat hemoglobin is stable at 8.9. Platelet count 90. Physical examination: Gen: This is an 78-year-old male in no acute distress VS: reviewed HEENT: Head is atraumatic, normocephalic. Pupils equal, round. Sclerae is anicteric. LUNGS: Mild wheezing. No intercostal retractions. HEART: Regular rate and rhythm. Systolic murmur. EXTREMITIES: No pedal edema. No calf tenderness. NEUROLOGICAL: Patient is awake, alert and oriented x3. Assessment: Unstable angina, non-ST elevated SC status post stent of the LAD Acute on chronic hypoxic respiratory failure secondary to COPD exacerbation Bicytopenia with thrombocytopenia and anemia Possible urinary tract infection History of coronary artery disease on CT scan and negative Lexiscan stress test Hypertension Dyslipidemia Remote history of tobacco use and dependence Diabetes mellitus type 2 Acute GI bleed Positive MRSA and Daisha in sputum Plan: Continue current cardiac medications: Aspirin, atorvastatin, Lopressor Okay to hold Brilinta, will plan to start Plavix once cleared by general surgery Please continue patient on aspirin 81 mg daily Further recommendations to follow based upon clinical course Nurse practitioner note has been reviewed, I agree with documented findings and plan of care. Patient was seen and examined. Objective - Vital Signs Vital signs: Vital Signs Temp 97.9 F 09/19/23 05:15 Pulse 104 H 09/19/23 08:01 Resp 20 09/19/23 05:15 BP 156/68 09/19/23 05:15 Pulse Ox 97 09/19/23 07:49 FiO2 Intake & Output 09/18/23 09/19/23 09/19/23 18:59 06:59 18:59 Intake Total 0 40 Output Total 150 Balance 0 -110 Intake: Oral 0 40 Output: Drainage 50 Right Lateral Abdomen 50 Urine 100 Other: Voiding Method Urinal Urinal # Voids 1 - Labs CBC & Chem 7: 09/19/23 08:46 09/19/23 08:46 Labs: Abnormal Lab Results - Last 24 Hours (Table) 09/18/23 09/18/23 09/18/23 Range/Units 05:00 11:20 16:10 RBC (4.30-5.90) m/uL Hgb (13.0-17.5) gm/dL Hct (39.0-53.0) % Plt Count (150-450) k/uL Chloride (98-107) mmol/L Carbon Dioxide (22-30) mmol/L BUN (9-20) mg/dL Creatinine (0.66-1.25) mg/dL Glucose (74-99) mg/dL POC Glucose (mg/dL) 154 H 180 H (70-110) mg/dL Calcium (8.4-10.2) mg/dL C. difficile (EIA) Intrp Positive A (Negative) 09/18/23 09/18/23 09/19/23 Range/Units 19:14 20:25 06:05 RBC 2.87 L (4.30-5.90) m/uL Hgb 8.9 L (13.0-17.5) gm/dL Hct 27.2 L (39.0-53.0) % Plt Count 103 L (150-450) k/uL Chloride (98-107) mmol/L Carbon Dioxide (22-30) mmol/L BUN (9-20) mg/dL Creatinine (0.66-1.25) mg/dL Glucose (74-99) mg/dL POC Glucose (mg/dL) 185 H 296 H (70-110) mg/dL Calcium (8.4-10.2) mg/dL C. difficile (EIA) Intrp (Negative) 09/19/23 09/19/23 Range/Units 08:46 08:46 RBC 2.75 L (4.30-5.90) m/uL Hgb 8.9 L (13.0-17.5) gm/dL Hct 25.0 L (39.0-53.0) % Plt Count (150-450) k/uL Chloride 113 H (98-107) mmol/L Carbon Dioxide 21 L (22-30) mmol/L BUN 28 H (9-20) mg/dL Creatinine 0.48 L (0.66-1.25) mg/dL Glucose 149 H (74-99) mg/dL POC Glucose (mg/dL) (70-110) mg/dL Calcium 7.6 L (8.4-10.2) mg/dL C. difficile (EIA) Intrp (Negative) Microbiology - Last 24 Hours (Table) 09/16/23 09:42 Gram Stain - Final Sputum Sputum Culture - Final Daisha tropicalis Methicillin resist S. aureus
[2023-09-19 16:17] LABS: Glucose,Whole Blood 171 mg/dL (70-110)
--- NOTE | 2023-09-19 19:25 | P.PN ---
Subjective Progress Note Date: 09/19/23 Patient seen and evaluated at bedside. No acute events overnight. Objective - Vital Signs Vital signs: Vital Signs Temp 98 F 09/19/23 16:30 Pulse 92 09/19/23 16:30 Resp 18 09/19/23 16:30 BP 139/64 09/19/23 16:30 Pulse Ox 93 L 09/19/23 16:30 FiO2 Intake & Output 09/19/23 09/19/23 09/20/23 06:59 18:59 06:59 Intake Total 40 720 Output Total 150 0 Balance -110 720 Intake: Oral 40 720 Output: Gastric Drainage 0 Drainage 50 Right Lateral Abdomen 50 Urine 100 0 Stool 0 Urine/Stool Mix 0 Emesis 0 Oral Regurgitation 0 Other 0 Other: Voiding Method Urinal Urinal # Voids 0 # Bowel Movements 0 - Exam gen: nad cv: rrr pul: non labored breathing abd: soft, non distended, no guarding or rebound tenderness - Labs CBC & Chem 7: 09/19/23 08:46 09/19/23 08:46 Labs: Abnormal Lab Results - Last 24 Hours (Table) 09/18/23 09/18/23 09/19/23 Range/Units 19:14 20:25 06:05 RBC 2.87 L (4.30-5.90) m/uL Hgb 8.9 L (13.0-17.5) gm/dL Hct 27.2 L (39.0-53.0) % Plt Count 103 L (150-450) k/uL Lymphocytes # (Manual) (1.0-4.8) k/uL Chloride (98-107) mmol/L Carbon Dioxide (22-30) mmol/L BUN (9-20) mg/dL Creatinine (0.66-1.25) mg/dL Glucose (74-99) mg/dL POC Glucose (mg/dL) 185 H 296 H (70-110) mg/dL Calcium (8.4-10.2) mg/dL 09/19/23 09/19/23 09/19/23 Range/Units 08:46 08:46 11:40 RBC 2.75 L (4.30-5.90) m/uL Hgb 8.9 L (13.0-17.5) gm/dL Hct 25.0 L (39.0-53.0) % Plt Count 90 L (150-450) k/uL Lymphocytes # (Manual) 0.49 L (1.0-4.8) k/uL Chloride 113 H (98-107) mmol/L Carbon Dioxide 21 L (22-30) mmol/L BUN 28 H (9-20) mg/dL Creatinine 0.48 L (0.66-1.25) mg/dL Glucose 149 H (74-99) mg/dL POC Glucose (mg/dL) 154 H (70-110) mg/dL Calcium 7.6 L (8.4-10.2) mg/dL 09/19/23 Range/Units 16:16 RBC (4.30-5.90) m/uL Hgb (13.0-17.5) gm/dL Hct (39.0-53.0) % Plt Count (150-450) k/uL Lymphocytes # (Manual) (1.0-4.8) k/uL Chloride (98-107) mmol/L Carbon Dioxide (22-30) mmol/L BUN (9-20) mg/dL Creatinine (0.66-1.25) mg/dL Glucose (74-99) mg/dL POC Glucose (mg/dL) 171 H (70-110) mg/dL Calcium (8.4-10.2) mg/dL Microbiology - Last 24 Hours (Table) 09/16/23 09:42 Gram Stain - Final Sputum Sputum Culture - Final Daisha tropicalis Methicillin resist S. aureus Assessment and Plan Assessment: 78 yo male w/ suspected gi bleed -bleeding has decreased -hgb stable -no intervention at this time
[2023-09-19 20:28] LABS: Glucose,Whole Blood 183 mg/dL (70-110)
[2023-09-19] MEDS: SULFAMETHOX-TMP 800-160MG 1 EACH TAB PO SCH (21:23)
[2023-09-20 06:08] LABS: Glucose,Whole Blood 200 mg/dL (70-110)
[2023-09-20 09:22] LABS: HCT 28.4 % (39.0-53.0); HGB 9.4 gm/dL (13.0-17.5); MCH 31.6 pg (25.0-35.0); MCHC 33.2 g/dL (31.0-37.0); MCV 95.1 fL (80.0-100.0); Mean Platelet Volume 8.4; Poikilocytosis Slight; RBC 2.98 m/uL (4.30-5.90); RDW 15.7 % (11.5-15.5); WBC 5.4 k/uL (3.8-10.6)
[2023-09-20 09:32] LABS: Platelet Count 92 k/uL (150-450)
[2023-09-20 09:38] LABS: ALT 68 U/L (4-49); AST 74 U/L (17-59); African American GFR (CKD) >90 (>60 ml/min/1.73 sqM); Albumin 2.7 g/dL (3.5-5.0); Alkaline Phosphatase 66 U/L (38-126); Anion Gap 5 mmol/L; Blood Urea Nitrogen 21 mg/dL (9-20); Calcium 7.7 mg/dL (8.4-10.2); Carbon Dioxide 22 mmol/L (22-30); Chloride 108 mmol/L (98-107); Glucose 176 mg/dL (74-99); Non-African American GFR(CKD) >90 (>60 ml/min/1.73 sqM); Potassium 3.4 mmol/L (3.5-5.1); Sodium 135 mmol/L (137-145); Total Bilirubin 0.8 mg/dL (0.2-1.3); Total Protein 4.8 g/dL (6.3-8.2)
--- NOTE | 2023-09-20 10:42 | P.PN ---
Subjective Progress Note Date: 09/20/23 Reason for Consult (text): Elevated troponin History of present illness: History of present illness: This is an 86-year-old male patient of Dr. Joseph with past medical history of coronary artery disease based on CT scan, hypertension, dyslipidemia, remote history of tobacco use and dependence, chronic obstructive pulmonary disease, diabetes, chronic hypoxic respiratory failure on home O2 at 3 L. We have been asked to evaluate the patient for elevated troponins. Patient presented to the emergency center due to increasing shortness of breath, cough, congestion that had worsened over the past 1 month and he states that he is "just sick of it." He also has dyspnea on exertion especially with walking no more than 50 feet for several months. His daughter states that he has significant dyspnes with walking 10 feet and seems to be progressing. He denies chest pain at this time and no chest pain with exertion. He states inhalers do not help his symptoms. No fever or chills. + sneezing. His pulse ox at home was in the 70s. Patient is seen tonaye lopez in the emergency center waiting for a bed on the cardiac stepdown unit. He has been started on aspirin, atorvastatin, and Lopressor versus atenolol. EKG sinus rhythm with incomplete right bundle branch block. Chest x-ray: 09/14: COPD. Left basilar atelectasis vs infiltrate. Interstitial changes may represent chronic lung disease rather than interstitial pneumonitis or venous congestion. WBC 4.8, hemoglobin 9.1, platelet count 83. Sodium 135, potassium 3, BUN 28 creatinine 0.68, CO2 20. Blood sugar 158. Troponins 0.088, 0.071 and 0.074. TSH 0.141 with normal free T41.07. Urinalysis large amount of leukoesterase, WBCs 56. Procalcitonin 0.22. Home cardiac medications: Atenolol 25 mg twice daily. Lexiscan Cardiolite stress test performed 02/17/2022 in the office revealed nondiagnostic electrocardiographic stress testing response to Lexiscan. Normal myocardial perfusion imaging. No evidence of any stress-induced ischemia. Hyperdynamic left ventricle. Echocardiogram performed on 02/17/2022 in the office revealed EF 50 to 55%. Mild concentric left ventricular hypertrophy. Aortic valve is calcified. Mild mitral regurgitation, mild tricuspid regurgitation. Pulmonary artery systolic pressure of 35 mmHg. 5/9 Yesterday, patient underwent cardiac catheterization with Dr. Joseph which revealed extremely calcified right and left coronary systems. Intermediate disease involving the distal RCA documented to be nonflow limiting by Doppler wire. Intermediate disease involving the mid LAD documented to be flow-limiting by Doppler wire. Patient subsequently underwent a PCI of the LAD with PILLO. Normal left-sided filling pressures. Patient states that he has some difficulty with breathing when he gets up and moves. Noted to have a little wheezing today. monitoring tech is sinus rhythm. Blood pressure 107/57, heart rate 98, pulse ox 99% on 3 L. Repeat blood work reveals hemoglobin 9.9, platelet count 98. Potassium 3.3, creatinine is 0.56. Echocardiogram reveals normal LV systolic function. 09/17 According to patient's nurse, he started having tarry stools last evening. A consult with general surgery has been added and Brilinta placed on hold. Patient states he feels well now but he had a rough night and he states he had some nausea yesterday. Blood pressure 114/61, heart rate [id number], pulse ox 97% on 3 L nasal cannula. 09/18 Patient was initially planned for EGD due to tarry stools but subsequently found to have C. difficile colitis. Patient remains off Brilinta and continued on aspirin only for now. We would plan to resume Plavix as soon as possible. Patient denies having any chest pain. Blood pressure 146/63, heart rate 94, pulse ox 96% on 3 L nasal cannula. Telemetry is a sinus rhythm. Repeat hemoglobin is stable at 8.9. Platelet count 90. 09/19 Patient has not had any further episodes of rectal bleeding. He remains in isolation for C diff colitis. General surgery is not planning on any interventions. Patient is maintained on aspirin and would like to start Plavix once cleared by surgery or at about 5 days following last bleeding. Family is planning for discharge to [facility] for subacute rehab. Blood pressure 140/65, heart rate 99, pulse ox 96% on 3 L nasal cannula. Repeat blood work reveals hemoglobin 9.4. Sodium 135, potassium 3.4, BUN 21 creatinine 0.56. AST 74 and ALT 68. Physical examination: Gen: This is an 78-year-old male in no acute distress VS: reviewed HEENT: Head is atraumatic, normocephalic. Pupils equal, round. Sclerae is anicteric. LUNGS: Mild wheezing. No intercostal retractions. HEART: Regular rate and rhythm. Systolic murmur. EXTREMITIES: No pedal edema. No calf tenderness. NEUROLOGICAL: Patient is awake, alert and oriented x3. Assessment: Unstable angina, non-ST elevated ID status post stent of the LAD Acute on chronic hypoxic respiratory failure secondary to COPD exacerbation Bicytopenia with thrombocytopenia and anemia Possible urinary tract infection History of coronary artery disease on CT scan and negative Lexiscan stress test Hypertension Dyslipidemia Remote history of tobacco use and dependence Diabetes mellitus type 2 Acute GI bleed C diff colitis Positive MRSA and Daisha in sputum Plan: Continue current cardiac medications: Aspirin, atorvastatin, Lopressor Okay to hold Brilinta, will plan to start Plavix once cleared by general surgery and may follow up in the office with Dr. Joseph this week and Plavix can be resumed at that time. Please continue patient on aspirin 81 mg daily Further recommendations to follow based upon clinical course Discharge planning tomorrow would most likely on Thursday. Nurse practitioner note has been reviewed, I agree with documented findings and plan of care. Patient was seen and examined. Objective - Vital Signs Vital signs: Vital Signs Temp 96.4 F L 09/19/23 21:25 Pulse 96 09/20/23 07:36 Resp 18 09/20/23 05:00 BP 164/74 09/20/23 05:00 Pulse Ox 95 09/20/23 05:00 FiO2 Intake & Output 09/19/23 09/20/23 09/20/23 18:59 06:59 18:59 Intake Total 720 40 Output Total 0 200 Balance 720 -160 Intake: Oral 720 40 Output: Gastric Drainage 0 Urine 0 200 Stool 0 Urine/Stool Mix 0 Emesis 0 Oral Regurgitation 0 Other 0 Other: Voiding Method Urinal Urinal # Voids 0 # Bowel Movements 0 - Labs CBC & Chem 7: 09/20/23 08:41 09/20/23 08:41 Labs: Abnormal Lab Results - Last 24 Hours (Table) 09/19/23 09/19/23 09/19/23 Range/Units 08:46 08:46 11:40 RBC 2.75 L (4.30-5.90) m/uL Hgb 8.9 L (13.0-17.5) gm/dL Hct 25.0 L (39.0-53.0) % Plt Count 90 L (150-450) k/uL Lymphocytes # (Manual) 0.49 L (1.0-4.8) k/uL Chloride 113 H (98-107) mmol/L Carbon Dioxide 21 L (22-30) mmol/L BUN 28 H (9-20) mg/dL Creatinine 0.48 L (0.66-1.25) mg/dL Glucose 149 H (74-99) mg/dL POC Glucose (mg/dL) 154 H (70-110) mg/dL Calcium 7.6 L (8.4-10.2) mg/dL 09/19/23 09/19/23 09/20/23 Range/Units 16:16 20:26 06:05 RBC (4.30-5.90) m/uL Hgb (13.0-17.5) gm/dL Hct (39.0-53.0) % Plt Count (150-450) k/uL Lymphocytes # (Manual) (1.0-4.8) k/uL Chloride (98-107) mmol/L Carbon Dioxide (22-30) mmol/L BUN (9-20) mg/dL Creatinine (0.66-1.25) mg/dL Glucose (74-99) mg/dL POC Glucose (mg/dL) 171 H 183 H 200 H (70-110) mg/dL Calcium (8.4-10.2) mg/dL Microbiology - Last 24 Hours (Table) 09/14/23 10:40 Blood Culture - Final Blood 09/14/23 10:25 Blood Culture - Final Blood 09/16/23 09:42 Gram Stain - Final Sputum Sputum Culture - Final Daisha tropicalis Methicillin resist S. aureus
--- NOTE | 2023-09-20 11:10 | P.PN ---
Subjective Progress Note Date: 09/20/23 patient has not had any further GI bleed. His he will was a 0.9. On exam vital signs are stable. Abdomen soft. GI bleed most likely related to any correlation. Patient will be observed. Objective - Vital Signs Vital signs: Vital Signs Temp 98.1 F 09/20/23 08:45 Pulse 100 09/20/23 11:06 Resp 18 09/20/23 08:45 BP 140/65 09/20/23 08:45 Pulse Ox 96 09/20/23 08:45 FiO2 Intake & Output 09/19/23 09/20/23 09/20/23 18:59 06:59 18:59 Intake Total 720 40 Output Total 0 200 Balance 720 -160 Intake: Oral 720 40 Output: Gastric Drainage 0 Urine 0 200 Stool 0 Urine/Stool Mix 0 Emesis 0 Oral Regurgitation 0 Other 0 Other: Voiding Method Urinal Urinal Urinal # Voids 0 # Bowel Movements 0 - Labs CBC & Chem 7: 09/20/23 08:41 09/20/23 08:41 Labs: Abnormal Lab Results - Last 24 Hours (Table) 09/19/23 09/19/23 09/19/23 Range/Units 11:40 16:16 20:26 RBC (4.30-5.90) m/uL Hgb (13.0-17.5) gm/dL Hct (39.0-53.0) % RDW (11.5-15.5) % Plt Count (150-450) k/uL Sodium (137-145) mmol/L Potassium (3.5-5.1) mmol/L Chloride (98-107) mmol/L BUN (9-20) mg/dL Creatinine (0.66-1.25) mg/dL Glucose (74-99) mg/dL POC Glucose (mg/dL) 154 H 171 H 183 H (70-110) mg/dL Calcium (8.4-10.2) mg/dL AST (17-59) U/L ALT (4-49) U/L Total Protein (6.3-8.2) g/dL Albumin (3.5-5.0) g/dL 09/20/23 09/20/23 09/20/23 Range/Units 06:05 08:41 08:41 RBC 2.98 L (4.30-5.90) m/uL Hgb 9.4 L (13.0-17.5) gm/dL Hct 28.4 L (39.0-53.0) % RDW 15.7 H (11.5-15.5) % Plt Count 92 L (150-450) k/uL Sodium 135 L (137-145) mmol/L Potassium 3.4 L (3.5-5.1) mmol/L Chloride 108 H (98-107) mmol/L BUN 21 H (9-20) mg/dL Creatinine 0.56 L (0.66-1.25) mg/dL Glucose 176 H (74-99) mg/dL POC Glucose (mg/dL) 200 H (70-110) mg/dL Calcium 7.7 L (8.4-10.2) mg/dL AST 74 H (17-59) U/L ALT 68 H (4-49) U/L Total Protein 4.8 L (6.3-8.2) g/dL Albumin 2.7 L (3.5-5.0) g/dL Microbiology - Last 24 Hours (Table) 09/14/23 10:40 Blood Culture - Final Blood 09/14/23 10:25 Blood Culture - Final Blood 09/16/23 09:42 Gram Stain - Final Sputum Sputum Culture - Final Daisha tropicalis Methicillin resist S. aureus
[2023-09-20 11:46] LABS: Glucose,Whole Blood 189 mg/dL (70-110)
[2023-09-20] MEDS: POTASSIUM CHLORIDE ER 20 MEQ TAB.ER PO STA (11:48)
--- NOTE | 2023-09-20 15:45 | P.PN ---
Subjective Progress Note Date: 09/20/23 Patient is an 78-year-old male with known COPD with chronic hypoxic respiratory failure coronary 3 to 4 L nasal cannula, diabetes mellitus type 2, BPH who presented to the emergency department with complaints of shortness of breath. In the emergency department he underwent extensive evaluation. On arrival he was tachypneic with a respiratory rate of 28. Laboratory analysis was remarkable for platelets of 112 and troponin of 0.08. BNP was normal for age at 1050. Influenza A/B/RSV/COVID-19 testing was negative. Chest x-ray demonstrated COPD with left basilar atelectasis. He was started on prednisone. Cardiology was consulted and echocardiogram was ordered. He was also seen by pulmonary who felt that he may have a mild exacerbation of COPD. He was seen by cardiology who recommended cardiac catheterization which was completed on 09/16/2023 which showed significant disease to the LAD which was treated with drug-eluting stent. Echocardiogram showed preserved ejection fraction without significant wall motion abnormalities. He then started having dark tarry stools. It was initially felt to be a GI bleed and patient was provided on IV Protonix, his brillenta was held. General surgery was consulted. He also had C. difficile come back positive which is felt to possibly be colonization versus acute infection. Infectious disease was consulted. Sputum culture came back with MRSA and Daisha he was started on bactrim for MRSA bronchitis. Patient seen and examined at bedside. No family is present today. He denies any chest pain or abdominal pain. His breathing is the same as yesterday. We again discussed his stent and shortness of breath. Vital signs reviewed General: Nontoxic, no distress, appears at stated age, bruising Cardiovascular: S1S2 reg, no edema bilateral Lungs: wheeze bilateral,, no accessory muscle use Abdominal: Soft, nontender to palpation, no guarding Ext: No gross muscle atrophy, no edema b/l lower extremities, no contractures Neuro: CN II-XI grossly intact, no focal neuro deficits Psych: Alert, oriented, appropriate affect Assessment/Plan: NSTEMI s/p PCI to the LAD Mild exacerbation of COPD MRSA Bronchitis bronchitis Hypertension -Solu-Medrol 60mg IV Q6 hours -Aspirin 81 mg daily, Lipitor 80 mg daily, -DuoNebs every 4 hours as needed, Symbicort 2 puffs twice daily -Cardiology note reviewed: Plavix once cleared by general surgery may follow-up with Dr. Negron in the office this week and Plavix could be resumed at that time. - Bactrim DS 1 table twcie daily D # 2/ Possible C. difficile, although patient has no fevers or leukocytosis and per nursing stool is formed - await ID recs - Vanco oral 125 mg PO QID D # 3 Melena, resolved - Likely releated to ASA and Brillenta being started. -Probable GI bleed -Protonix 40 mg IV push twice daily -Surgical note reviewed: Continue to observe patient as hemoglobin now stable - CBC in AM Hypokalemia -Potassium chloride 40 mill equivalents -Repeat level in a.m. Diabetes mellitus type 2 -Metformin on hold -Sliding scale insulin -A1c 7.9 Weight loss -Marinol 2.5 mg twice daily Left arm swelling, hematoma ruled out Constipation, resolved Imaging: None new Hospital Course Imaging: CTA of the chest: No evidence of pulmonary embolism, COPD with moderate to advanced emphysema and bronchial wall thickening as well as scattered endobronchial debris. Right hilar lymph nodes measuring 1.2 cm possibly kusum ctive or postinflammatory, some LTH Venous Doppler: No evidence of DVT in bilateral lower extremities. Echogenic appearance with no color flow identified in the right common femoral artery. Echocardiogram: Ejection fraction 55 to 60%, no significant valvular disease Data Review: Labs reviewed from today include CBC and CMP which are remarkable for hemoglobin 9.4, platelets 92, potassium 3.4, AST 74, ALT 68 DVT prophylaxis: Heparin Anticipated discharge date: In 24-[address]: [facility] This dictation was prepared using [employer] voice recognition software. Though every attempt is made to correct errors during dictation some may still e xist. Objective - Vital Signs Vital signs: Vital Signs Temp 98.1 F 09/20/23 08:45 Pulse 106 H 09/20/23 15:03 Resp 17 09/20/23 11:50 BP 145/68 09/20/23 11:50 Pulse Ox 94 L 09/20/23 11:50 FiO2 Intake & Output 09/19/23 09/20/23 09/20/23 18:59 06:59 18:59 Intake Total 720 40 360 Output Total 0 200 Balance 720 -160 360 Intake: Oral 720 40 360 Output: Gastric Drainage 0 Urine 0 200 Stool 0 Urine/Stool Mix 0 Emesis 0 Oral Regurgitation 0 Other 0 Other: Voiding Method Urinal Urinal Urinal # Voids 0 1 # Bowel Movements 0 1 - Labs CBC & Chem 7: 09/20/23 08:41 09/20/23 08:41 Labs: Abnormal Lab Results - Last 24 Hours (Table) 09/19/23 09/19/23 09/20/23 Range/Units 16:16 20:26 06:05 RBC (4.30-5.90) m/uL Hgb (13.0-17.5) gm/dL Hct (39.0-53.0) % RDW (11.5-15.5) % Plt Count (150-450) k/uL Sodium (137-145) mmol/L Potassium (3.5-5.1) mmol/L Chloride (98-107) mmol/L BUN (9-20) mg/dL Creatinine (0.66-1.25) mg/dL Glucose (74-99) mg/dL POC Glucose (mg/dL) 171 H 183 H 200 H (70-110) mg/dL Calcium (8.4-10.2) mg/dL AST (17-59) U/L ALT (4-49) U/L Total Protein (6.3-8.2) g/dL Albumin (3.5-5.0) g/dL 09/20/23 09/20/23 09/20/23 Range/Units 08:41 08:41 11:44 RBC 2.98 L (4.30-5.90) m/uL Hgb 9.4 L (13.0-17.5) gm/dL Hct 28.4 L (39.0-53.0) % RDW 15.7 H (11.5-15.5) % Plt Count 92 L (150-450) k/uL Sodium 135 L (137-145) mmol/L Potassium 3.4 L (3.5-5.1) mmol/L Chloride 108 H (98-107) mmol/L BUN 21 H (9-20) mg/dL Creatinine 0.56 L (0.66-1.25) mg/dL Glucose 176 H (74-99) mg/dL POC Glucose (mg/dL) 189 H (70-110) mg/dL Calcium 7.7 L (8.4-10.2) mg/dL AST 74 H (17-59) U/L ALT 68 H (4-49) U/L Total Protein 4.8 L (6.3-8.2) g/dL Albumin 2.7 L (3.5-5.0) g/dL Microbiology - Last 24 Hours (Table) 09/14/23 10:40 Blood Culture - Final Blood 09/14/23 10:25 Blood Culture - Final Blood
[2023-09-20 16:33] LABS: Glucose,Whole Blood 276 mg/dL (70-110)
[2023-09-20 20:45] LABS: Glucose,Whole Blood 238 mg/dL (70-110)
--- NOTE | 2023-09-20 21:50 | P.CONS ---
History of Present Illness - Reason for Consult Consult date: 09/20/23 - History of Present Illness Patient is a 78-year-old male with a past medical history of kidney for diabetes mellitus hypertension COPD and this patient presented to the hospital about a week ago on 09/14/2023 for evaluation of increasing shortness of breath with sudden worsening the day of presentation to the hospital patient did have a chronic cough but no significant sputum production denies any chest pain no nausea no vomiting the patient was noted to be hypoxic and on arrival to the ER patient was afebrile and no fever have been recorded subsequently patient was tachycardic but not hypotensive hypoxic and currently on 3 L nasal cannula oxygen patient did have a normal white count during this hospital stay creatinine has been normal liver enzymes mildly elevated patient did have a chest x-ray on admission COPD left basilar atelectasis or infiltrate he also have a CT angiogram of the chest no evidence of pulmonary embolism COPD with moderate advanced emphysema bronchial wall thickening is greater in the lower lungs and some scattered endobronchial debris's consider bronchitis patient did have a sputum culture which grew Daisha tropicalis and MRSA he did have a stool for C. difficile sent on 09/18/2023 which came back positive with C. difficile colitis toxin patient is currently on a combination of Bactrim DS and oral vancomycin infectious was consulted for further management of antibiotic again questioning of his C. 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),"HEAT STROKE" History of Any Multi-Drug Resistant Organisms: None Reported Past Surgical History: No Surgical Hx Reported Additional Past Surgical History / Comment(s): cataract surgery Past Anesthesia/Blood Transfusion Reactions: No Reported Reaction Smoking Status: Former smoker - Past Family History Brother(s) Family Medical History: Cancer Medications and Allergies Home Medications Medication Instructions Recorded Confirmed Type predniSONE 5 mg PO DAILY 08/14/15 09/14/23 History Albuterol Nebulized [Ventolin 2.5 mg INHALATION RT-QID 09/14/23 09/14/23 History Nebulized] Albuterol Sulfate [Albuterol 2 puff PO RT-Q4H PRN 09/14/23 09/14/23 History Sulfate Hfa] Budesonide/Formoterol Fumarate 2 puff INHALATION RT-BID 09/14/23 09/14/23 History [Symbicort 160-4.5 Mcg Inhaler] Ipratropium Nebulized [Atrovent 0.5 mg INHALATION RT-QID 09/14/23 09/14/23 History Nebulized 0.2 MG/ML] Tamsulosin HCl [Flomax] 0.4 mg PO BID 09/14/23 09/14/23 History atenoloL 25 mg PO BID 09/14/23 09/14/23 History metFORMIN HCL [Glucophage] 500 mg PO BID 09/14/23 09/14/23 History Allergies Allergy/AdvReac Type Severity Reaction Status Date / Time No Known Allergies Allergy Verified 09/14/23 10:58 Physical Exam Vitals: Vital Signs Temp Pulse Pulse Resp BP Pulse Ox 09/20/23 11:06 100 09/20/23 10:53 99 09/20/23 08:45 98.1 F 99 18 140/65 96 09/20/23 07:36 96 09/20/23 07:26 96 09/20/23 05:00 99 18 164/74 95 09/20/23 00:31 95 18 135/65 97 09/19/23 21:25 96.4 F L 101 H 18 130/60 97 09/19/23 20:33 96 09/19/23 20:16 92 09/19/23 16:30 98 F 92 18 139/64 93 L 09/19/23 12:15 97.7 F 94 17 146/63 96 09/19/23 11:25 96 Intake and Output 09/19/23 09/20/23 09/20/23 22:59 06:59 14:59 Intake Total 400 Output Total 200 Balance 400 -200 Intake: Oral 400 Output: Urine 200 Other: Voiding Method Urinal Urinal Urinal Results CBC & Chem 7: 09/20/23 08:41 09/20/23 08:41 Labs: Abnormal Lab Results - Last 24 Hours (Table) 09/19/23 09/19/23 09/19/23 Range/Units 11:40 16:16 20:26 RBC (4.30-5.90) m/uL Hgb (13.0-17.5) gm/dL Hct (39.0-53.0) % RDW (11.5-15.5) % Plt Count (150-450) k/uL Sodium (137-145) mmol/L Potassium (3.5-5.1) mmol/L Chloride (98-107) mmol/L BUN (9-20) mg/dL Creatinine (0.66-1.25) mg/dL Glucose (74-99) mg/dL POC Glucose (mg/dL) 154 H 171 H 183 H (70-110) mg/dL Calcium (8.4-10.2) mg/dL AST (17-59) U/L ALT (4-49) U/L Total Protein (6.3-8.2) g/dL Albumin (3.5-5.0) g/dL 09/20/23 09/20/23 09/20/23 Range/Units 06:05 08:41 08:41 RBC 2.98 L (4.30-5.90) m/uL Hgb 9.4 L (13.0-17.5) gm/dL Hct 28.4 L (39.0-53.0) % RDW 15.7 H (11.5-15.5) % Plt Count 92 L (150-450) k/uL Sodium 135 L (137-145) mmol/L Potassium 3.4 L (3.5-5.1) mmol/L Chloride 108 H (98-107) mmol/L BUN 21 H (9-20) mg/dL Creatinine 0.56 L (0.66-1.25) mg/dL Glucose 176 H (74-99) mg/dL POC Glucose (mg/dL) 200 H (70-110) mg/dL Calcium 7.7 L (8.4-10.2) mg/dL AST 74 H (17-59) U/L ALT 68 H (4-49) U/L Total Protein 4.8 L (6.3-8.2) g/dL Albumin 2.7 L (3.5-5.0) g/dL Microbiology - Last 24 Hours (Table) 09/14/23 10:40 Blood Culture - Final Blood 09/14/23 10:25 Blood Culture - Final Blood 09/16/23 09:42 Gram Stain - Final Sputum Sputum Culture - Final Daisha tropicalis Methicillin resist S. aureus Assessment and Plan Plan: 1patient presented hospital with increasing shortness of breath cough evidence of hypoxemia he did have a CT angiogram of the chest did not show any consolidation possible COPD exacerbation with a tracheobronchitis clinically not behaving as pneumonia, patient did have procalcitonin 0.22 only 2-patient apparently did have some diarrhea nursing staff did send a stool for C. difficile but positive however since then no bowel movement has been reported with a question of infection versus colonization 3-keeping in mind the patient ongoing exposure to antibiotic for his tracheobronchitis with MRSA positive in the sputum may consider continuation of oral vancomycin to prevent development of full-blown C. difficile colitis 4-we will recheck his infection markers with a.m. lab We will follow on clinical condition and cultures to further adjust medication if needed Thank you for this consultation we will follow the patient along with you Dictation was produced using [employer] dictation software. please excuse any grammatical, word or spelling errors. Time with Patient: Greater than 30
[2023-09-21 02:16] VITALS: TEMP 97.7
[2023-09-21 05:54] LABS: Glucose,Whole Blood 229 mg/dL (70-110)
[2023-09-21 10:26] LABS: African American GFR (CKD) >90 (>60 ml/min/1.73 sqM); Anion Gap 4 mmol/L; Blood Urea Nitrogen 22 mg/dL (9-20); Calcium 7.3 mg/dL (8.4-10.2); Carbon Dioxide 21 mmol/L (22-30); Chloride 110 mmol/L (98-107); Glucose 182 mg/dL (74-99); Magnesium 2.2 mg/dL (1.6-2.3); Non-African American GFR(CKD) >90 (>60 ml/min/1.73 sqM); Potassium 3.6 mmol/L (3.5-5.1); Sodium 135 mmol/L (137-145)
[2023-09-21 10:33] LABS: Basophils % (A) 1 %; Eosinophils % (A) 0 %; HCT 25.8 % (39.0-53.0); HGB 8.5 gm/dL (13.0-17.5); Lymphocytes # (A) 0.2 k/uL (1.0-4.8); Lymphocytes % (A) 5 %; MCH 31.7 pg (25.0-35.0); MCV 95.9 fL (80.0-100.0); Mean Platelet Volume 8.7; Monocytes # (A) 0.2 k/uL (0-1.0); Monocytes % (A) 4 %; Neutrophils # (A) 3.6 k/uL (1.3-7.7); Neutrophils % (A) 89 %; RBC 2.69 m/uL (4.30-5.90); RDW 15.6 % (11.5-15.5)
[2023-09-21 10:36] LABS: Platelet Count 93 k/uL (150-450)
[2023-09-21 11:31] LABS: Glucose,Whole Blood 247 mg/dL (70-110)
[2023-09-21 12:44] VITALS: BP 120/57; PULSE 107; RESP 16
--- NOTE | 2023-09-21 12:48 | P.PN ---
Subjective HISTORY OF PRESENT ILLNESS: This is an 86-year-old male patient of Dr. Joseph with past medical history of coronary artery disease based on CT scan, hypertension, dyslipidemia, remote history of tobacco use and dependence, chronic obstructive pulmonary disease, diabetes, chronic hypoxic respiratory failure on home O2 at 3 L. We have been asked to evaluate the patient for elevated troponins. Patient presented to the emergency center due to increasing shortness of breath, cough, congestion that had worsened over the past 1 month and he states that he is "just sick of it." He also has dyspnea on exertion especially with walking no more than 50 feet for several months. His daughter states that he has significant dyspnes with walking 10 feet and seems to be progressing. He denies chest pain at this time and no chest pain with exertion. He states inhalers do not help his symptoms. No fever or chills. + sneezing. His pulse ox at home was in the 70s. Patient is seen today in the emergency center waiting for a bed on the cardiac stepdown unit. He has been started on aspirin, atorvastatin, and Lopressor versus atenolol. EKG sinus rhythm with incomplete right bundle branch block. Chest x-ray: 09/14: COPD. Left basilar atelectasis vs infiltrate. Interstitial changes may represent chronic lung disease rather than interstitial pneumonitis or venous congestion. WBC 4.8, hemoglobin 9.1, platelet count 83. Sodium 135, potassium 3, BUN 28 creatinine 0.68, CO2 20. Blood sugar 158. Troponins 0.088, 0.071 and 0.074. TSH 0.141 with normal free T41.07. Urinalysis large amount of leukoesterase, WBCs 56. Procalcitonin 0.22. Home cardiac medications: Atenolol 25 mg twice daily. Lexiscan Cardiolite stress test performed 02/17/2022 in the office revealed nondiagnostic electrocardiographic stress testing response to Lexiscan. Normal myocardial perfusion imaging. No evidence of any stress-induced ischemia. Hyperdynamic left ventricle. Echocardiogram performed on 02/17/2022 in the office revealed EF 50 to 55%. Mild concentric left ventricular hypertrophy. Aortic valve is calcified. Mild mitral regurgitation, mild tricuspid regurgitation. Pulmonary artery systolic pressure of 35 mmHg. 09/16 Yesterday, patient underwent cardiac catheterization with Dr. Joseph which revealed extremely calcified right and left coronary systems. Intermediate disease involving the distal RCA documented to be nonflow limiting by Doppler wire. Intermediate disease involving the mid LAD documented to be flow-limiting by Doppler wire. Patient subsequently underwent a PCI of the LAD with PILLO. Normal left-sided filling pressures. Patient states that he has some difficulty with breathing when he gets up and moves. Noted to have a little wheezing today. 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 Blood pressure 107/57, heart rate 98, pulse ox 99% on 3 L. Repeat blood work reveals hemoglobin 9.9, platelet count 98. Potassium 3.3, creatinine is 0.56. Echocardiogram reveals normal LV systolic function. 09/17 According to patient's nurse, he started having tarry stools last evening. A consult with general surgery has been added and Brilinta placed on hold. Patient states he feels well now but he had a rough night and he states he had some nausea yesterday. Blood pressure 114/61, heart rate [id number], pulse ox 97% on 3 L nasal cannula. 09/18 Patient was initially planned for EGD due to tarry stools but subsequently found to have C. difficile colitis. Patient remains off Brilinta and continued on aspirin only for now. We would plan to resume Plavix as soon as possible. Patient denies having any chest pain. Blood pressure 146/63, heart rate 94, pulse ox 96% on 3 L nasal cannula. Telemetry is a sinus rhythm. Repeat hemoglobin is stable at 8.9. Platelet count 90. 09/19 Patient has not had any further episodes of rectal bleeding. He remains in isolation for C diff colitis. General surgery is not planning on any interventions. Patient is maintained on aspirin and would like to start Plavix once cleared by surgery or at about 5 days following last bleeding. Family is planning for discharge to [facility] for subacute rehab. Blood pressure 140/65, heart rate 99, pulse ox 96% on 3 L nasal cannula. Repeat blood work reveals hemoglobin 9.4. Sodium 135, potassium 3.4, BUN 21 creatinine 0.56. AST 74 and ALT 68. 09/21/2023 Patient examined this morning at the bedside. Patient denies any chest pain or pressure. He denies any shortness of breath. Patient's hemoglobin remained stable. He is currently on aspirin 81 mg daily. Plans are underway for patient to be discharged today to [facility]. PHYSICAL EXAM: VITAL SIGNS: Reviewed. GENERAL: Well-developed in no acute distress. NECK: Supple. No JVD or thyromegaly LUNGS: Respirations even and unlabored. Lungs essentially clear to auscultation bilaterally. HEART: Regular rate and rhythm. S1 and S2 heard. EXTREMITIES: Normal range of motion. No clubbing or cyanosis. Peripheral pulses intact. No lower extremity edema ASSESSMENT: Unstable angina, non-ST elevated VA status post stent of the LAD Acute on chronic hypoxic respiratory failure secondary to COPD exacerbation Bicytopenia with thrombocytopenia and anemia Possible urinary tract infection History of coronary artery disease on CT scan and negative Lexiscan stress test Hypertension Dyslipidemia Remote history of tobacco use and dependence Diabetes mellitus type 2 Acute GI bleed C diff colitis Positive MRSA and Daisha in sputum PLAN: Continue current cardiac medications Continue aspirin 81 mg daily Add Plavix 75 mg daily starting on Thursday, September 25, 2023 Recommend dual antiplatelet therapy for 12 months Continue high intensity statin. LDL goal less than 70. Patient is stable for discharge today from a cardiac standpoint Nurse practitioner note has been reviewed by physician. Signing provider agrees with the documented findings, assessment, and plan of care documented by [employer] as a scribe. Objective - Vital Signs Vital signs: Vital Signs Temp 97.7 F 09/21/23 00:00 Pulse 107 H 09/21/23 12:00 Resp 16 09/21/23 12:00 BP 120/57 09/21/23 12:00 Pulse Ox 96 09/21/23 12:00 FiO2 Intake & Output 09/20/23 09/21/23 09/21/23 18:59 06:59 18:59 Intake Total 480 Output Total 500 Balance 480 -500 Intake: Oral 480 Output: Urine 500 Other: Voiding Method Urinal Urinal Urinal # Voids 1 1 # Bowel Movements 1 0 - Labs CBC & Chem 7: 09/21/23 08:50 09/21/23 08:50 Labs: Abnormal Lab Results - Last 24 Hours (Table) 09/20/23 09/20/23 09/21/23 Range/Units 16:30 20:43 05:52 RBC (4.30-5.90) m/uL Hgb (13.0-17.5) gm/dL Hct (39.0-53.0) % RDW (11.5-15.5) % Plt Count (150-450) k/uL Lymphocytes # (1.0-4.8) k/uL Sodium (137-145) mmol/L Chloride (98-107) mmol/L Carbon Dioxide (22-30) mmol/L BUN (9-20) mg/dL Creatinine (0.66-1.25) mg/dL Glucose (74-99) mg/dL POC Glucose (mg/dL) 276 H 238 H 229 H (70-110) mg/dL Calcium (8.4-10.2) mg/dL 09/21/23 09/21/23 09/21/23 Range/Units 08:50 08:50 11:27 RBC 2.69 L (4.30-5.90) m/uL Hgb 8.5 L (13.0-17.5) gm/dL Hct 25.8 L (39.0-53.0) % RDW 15.6 H (11.5-15.5) % Plt Count 93 L (150-450) k/uL Lymphocytes # 0.2 L (1.0-4.8) k/uL Sodium 135 L (137-145) mmol/L Chloride 110 H (98-107) mmol/L Carbon Dioxide 21 L (22-30) mmol/L BUN 22 H (9-20) mg/dL Creatinine 0.58 L (0.66-1.25) mg/dL Glucose 182 H (74-99) mg/dL POC Glucose (mg/dL) 247 H (70-110) mg/dL Calcium 7.3 L (8.4-10.2) mg/dL
--- NOTE | 2023-09-21 13:16 | P.DS ---
Providers Date of admission: 09/14/23 10:23 Expected date of discharge: 09/21/23 Attending physician: Jeremy Chanel MD Consults: 09/14/23 10:21 Consult Physician Routine Consulting Provider: Cardiology Sherri Consult Reason/Comments: elevated troponin Do you want consulting provider notified?: Yes Consult Physician Routine Consulting Provider: Erika Ricci Consult Reason/Comments: copd, pneumonia Do you want consulting provider notified?: Yes 09/16/23 12:43 Consult Physician Routine Consulting Provider: Osvaldo Polanco Consult Reason/Comments: Post Interventional Patient Do you want consulting provider notified?: Already Contacted 09/18/23 05:24 Consult Physician Urgent Consulting Provider: Julio Penn Consult Reason/Comments: GIB Do you want consulting provider notified?: Yes 09/19/23 13:51 Consult Physician Routine Consulting Provider: Kayla Renteria Consult Reason/Comments: Possible C diff Do you want consulting provider notified?: Yes Primary care physician: [facility] Course: Discharge Diagnosis: NSTEMI s/p PCI to the LAD Mild exacerbation of COPD MRSA Bronchitis Hypertension C. difficile positive, without symptoms of colitis GI bleed Hypokalemia Diabetes mellitus type 2, with hyperglycemia Weight loss, poor oral intake Left arm swelling, hematoma ruled out Hospital Course: Patient is an 78-year-old male with known COPD with chronic hypoxic respiratory failure coronary 3 to 4 L nasal cannula, diabetes mellitus type 2, BPH who presented to the emergency department with complaints of shortness of breath. On arrival he was tachypneic with a respiratory rate of 28. Laboratory analysis was remarkable for platelets of 112 and troponin of 0.08. BNP was normal for age at 1050. Influenza A/B/RSV/COVID-19 testing was negative. Chest x-ray demonstrated COPD with left basilar atelectasis. He was started on prednisone. Cardiology was consulted and echocardiogram was ordered. He was also seen by pulmonary who felt that he may have a mild exacerbation of COPD. He was seen by cardiology who recommended cardiac catheterization which was completed on 09/16/2023 which showed significant disease to the LAD which was treated with drug-eluting stent. Echocardiogram showed preserved ejection fraction without significant wall motion abnormalities. He then started having dark tarry stools. It was initially felt to be a GI bleed and patient was provided on IV Protonix, his brillenta was held. General surgery was consulted. He also had C. difficile come back positive which is felt to possibly be colonization versus acute infection. Infectious disease was consulted. Sputum culture came back with MRSA and Daisha he was started on bactrim for MRSA bronchitis. Patient on oral vancomycin, will complete the course for C. difficile colitis. Not having any significant diarrhea. No significant GI bleed, hemoglobin has been stable. Patient being discharged on aspirin and statin, will be started on Plavix outpatient. Follow-up with cardiology. Patient seen and examined at bedside. Vital signs reviewed and stable. General: Nontoxic, no distress, appears at stated age, bruising Cardiovascular: S1S2 reg, no edema bilateral Lungs: Clear to auscultation bilaterally,, no accessory muscle use Abdominal: Soft, nontender to palpation, no guarding Ext: No gross muscle atrophy, no edema b/l lower extremities, no contractures Neuro: CN II-XI grossly intact, no focal neuro deficits Psych: Alert, oriented, appropriate affect A total of 33 minutes of time were spent preparing this complex discharge summary. Patient was discharged on 09/21/2023 at 1245. Patient Condition at Discharge: Stable Plan - Discharge Summary Discharge Rx Participant: Yes New Discharge Prescriptions: New Aspirin 81 mg PO DAILY tab Sulfamethox-Tmp 800-160Mg [Bactrim DS 800-160 mg] 1 each PO BID 3 Days tab Atorvastatin [Lipitor] 80 mg PO DAILY tab predniSONE [Deltasone] 40 mg PO DAILY #2 tab Metoprolol Tartrate [Lopressor] 12.5 mg PO BID tab droNABinol [Marinol] 2.5 mg PO AC-BID cap guaiFENesin-DM 600/30MG [Mucinex Dm] 1 each PO Q12HR PRN tab PRN Reason: Cough Pantoprazole [Protonix] 40 mg PO BID #20 tab Vancomycin HCl [Vancocin HCl] 125 mg PO QID #28 cap Clopidogrel [Plavix] 75 mg PO DAILY #90 tablet Continue predniSONE 5 mg PO DAILY Albuterol Sulfate [Albuterol Sulfate Hfa] 2 puff PO RT-Q4H PRN PRN Reason: Shortness Of Breath Ipratropium Nebulized [Atrovent Nebulized 0.2 MG/ML] 0.5 mg INHALATION RT-QID Budesonide/Formoterol Fumarate [Symbicort 160-4.5 Mcg Inhaler] 2 puff INHALATION RT-BID Albuterol Nebulized [Ventolin Nebulized] 2.5 mg INHALATION RT-QID metFORMIN HCL [Glucophage] 500 mg PO BID Tamsulosin HCl [Flomax] 0.4 mg PO BID Discontinued atenoloL 25 mg PO BID Discharge Medication List predniSONE 5 mg PO DAILY 08/14/15 [History] Albuterol Nebulized [Ventolin Nebulized] 2.5 mg INHALATION RT-QID 09/14/23 [History] Albuterol Sulfate [Albuterol Sulfate Hfa] 2 puff PO RT-Q4H PRN 09/14/23 [History] Budesonide/Formoterol Fumarate [Symbicort 160-4.5 Mcg Inhaler] 2 puff INHALATION RT-BID 09/14/23 [History] Ipratropium Nebulized [Atrovent Nebulized 0.2 MG/ML] 0.5 mg INHALATION RT-QID 09/14/23 [History] Tamsulosin HCl [Flomax] 0.4 mg PO BID 09/14/23 [History] metFORMIN HCL [Glucophage] 500 mg PO BID 09/14/23 [History] Aspirin 81 mg PO DAILY tab 09/21/23 [Rx] Atorvastatin [Lipitor] 80 mg PO DAILY tab 09/21/23 [Rx] Clopidogrel [Plavix] 75 mg PO DAILY #90 tablet 09/21/23 [Rx] Metoprolol Tartrate [Lopressor] 12.5 mg PO BID tab 09/21/23 [Rx] Pantoprazole [Protonix] 40 mg PO BID #20 tab 09/21/23 [Rx] Sulfamethox-Tmp 800-160Mg [Bactrim DS 800-160 mg] 1 each PO BID 3 Days tab 09/21/23 [Rx] Vancomycin HCl [Vancocin HCl] 125 mg PO QID #28 cap 09/21/23 [Rx] droNABinol [Marinol] 2.5 mg PO AC-BID cap 09/21/23 [Rx] guaiFENesin-DM 600/30MG [Mucinex Dm] 1 each PO Q12HR PRN tab 09/21/23 [Rx] predniSONE [Deltasone] 40 mg PO DAILY #2 tab 09/21/23 [Rx] Follow up Appointment(s)/Referral(s): Erika Ricci MD [STAFF PHYSICIAN] - 10 Days Nazario Joseph MD [STAFF PHYSICIAN] - 1 Week Asher Rodriguez MD [Primary Care Provider] - 1-2 days Julio Penn MD [STAFF PHYSICIAN] - 1 Week Patient Instructions/Handouts: Coronary Artery Disease (DC), Gastrointestinal Bleeding (DC), COPD (Chronic Obstructive Pulmonary Disease) (DC), Type 2 Diabetes in the Older Adult (DC) Activity/Diet/Wound Care/Special Instructions: Begin Plavix 75 mg daily beginning on Thursday, September 25, 2023 Special Instructions: Repeat CT chest in 3 months to check on enlarged lymphnode Prednisone 40 for 1 day, and then back to home prednisone dose daily Complete course of bactrim and oral vancomycin. Discharge Disposition: TRANSFER TO SNF/ECF
--- NOTE | 2023-09-21 15:52 | P.PN ---
Subjective Progress Note Date: 09/21/23 CHIEF COMPLAINT: GI bleed HISTORY OF PRESENT ILLNESS: Patient has had no further black stools or coffee-g round emesis since Thursday. He is tolerating diet. Patient denies any abdominal pain. Hemoglobin did decrease from 9.4-8.5. PHYSICAL EXAM: VITAL SIGNS: Reviewed. GENERAL: no acute distress. ABDOMEN: Soft. Nondistended. Nontender. NEUROLOGIC: Alert and oriented. Cranial nerves II through XII grossly intact. ASSESSMENT: 1. Acute GI bleed with coffee-ground emesis and black tarry stools likely due to Brilenta 2. Non-ST elevated VA status post stent to the LAD during this admission PLAN: -No plans for endoscopies. Hemoglobin stable. Patient has had no further episodes of melanotic stools or emesis -Patient can be discharged from surgical standpoint -Agree with changing of blood thinner to Plavix. Recommend resuming Plavix tomorrow Physician Field Laboratory Operator note has been reviewed by physician. Signing provider agrees with the documented findings, assessment, and plan of care. Objective - Vital Signs Vital signs: Vital Signs Temp 97.7 F 09/21/23 00:00 Pulse 92 09/21/23 15:15 Resp 16 09/21/23 14:00 BP 120/57 09/21/23 12:00 Pulse Ox 96 09/21/23 12:00 FiO2 Intake & Output 09/20/23 09/21/23 09/21/23 18:59 06:59 18:59 Intake Total 480 25 Output Total 500 Balance 480 -500 25 Weight 61.5 kg Intake: Oral 480 25 Output: Urine 500 Other: Voiding Method Urinal Urinal Urinal # Voids 1 1 # Bowel Movements 1 0 - Labs CBC & Chem 7: 09/21/23 08:50 09/21/23 08:50 Labs: Abnormal Lab Results - Last 24 Hours (Table) 09/20/23 09/20/23 09/21/23 Range/Units 16:30 20:43 05:52 RBC (4.30-5.90) m/uL Hgb (13.0-17.5) gm/dL Hct (39.0-53.0) % RDW (11.5-15.5) % Plt Count (150-450) k/uL Lymphocytes # (1.0-4.8) k/uL Sodium (137-145) mmol/L Chloride (98-107) mmol/L Carbon Dioxide (22-30) mmol/L BUN (9-20) mg/dL Creatinine (0.66-1.25) mg/dL Glucose (74-99) mg/dL POC Glucose (mg/dL) 276 H 238 H 229 H (70-110) mg/dL Calcium (8.4-10.2) mg/dL 09/21/23 09/21/23 09/21/23 Range/Units 08:50 08:50 11:27 RBC 2.69 L (4.30-5.90) m/uL Hgb 8.5 L (13.0-17.5) gm/dL Hct 25.8 L (39.0-53.0) % RDW 15.6 H (11.5-15.5) % Plt Count 93 L (150-450) k/uL Lymphocytes # 0.2 L (1.0-4.8) k/uL Sodium 135 L (137-145) mmol/L Chloride 110 H (98-107) mmol/L Carbon Dioxide 21 L (22-30) mmol/L BUN 22 H (9-20) mg/dL Creatinine 0.58 L (0.66-1.25) mg/dL Glucose 182 H (74-99) mg/dL POC Glucose (mg/dL) 247 H (70-110) mg/dL Calcium 7.3 L (8.4-10.2) mg/dL
== END 2023-09-21 15:51 | DRG 321 ==
LOC: EC 08:38 → 3SCARD 10:23
PROVIDERS: ADMIT Internal Medicine; ATTEND Internal Medicine
PROC: 027034Z Dilation of Coronary Artery, One Artery with Drug-eluting Intraluminal Device, Percutaneous Approach (ICD-10-PCS; principal; 2023-09-16 09:50)
PROC: 4A023N7 Measurement of Cardiac Sampling and Pressure, Left Heart, Percutaneous Approach (ICD-10-PCS; 2023-09-16 09:50)
PROC: B2111ZZ Fluoroscopy of Multiple Coronary Arteries using Low Osmolar Contrast (ICD-10-PCS; 2023-09-16 09:50)
PROC: B240ZZ3 Ultrasonography of Single Coronary Artery, Intravascular (ICD-10-PCS; 2023-09-16 09:50)
DX: I21.4 Non-ST elevation (NSTEMI) myocardial infarction (principal); J96.21 Acute and chronic respiratory failure with hypoxia; A04.72 Enterocolitis due to Clostridium difficile, not specified as recurrent; B37.0 Candidal stomatitis; N39.0 Urinary tract infection, site not specified; K92.1 Melena; I25.110 Atherosclerotic heart disease of native coronary artery with unstable angina pectoris; E11.9 Type 2 diabetes mellitus without complications; J43.8 Other emphysema; Z66 Do not resuscitate; Z99.81 Dependence on supplemental oxygen; I11.9 Hypertensive heart disease without heart failure; D69.59 Other secondary thrombocytopenia; R63.4 Abnormal weight loss; I08.3 Combined rheumatic disorders of mitral, aortic and tricuspid valves; F32.A Depression, unspecified; B95.62 Methicillin resistant Staphylococcus aureus infection as the cause of diseases classified elsewhere; T39.015A Adverse effect of aspirin, initial encounter; T45.525A Adverse effect of antithrombotic drugs, initial encounter; N40.0 Benign prostatic hyperplasia without lower urinary tract symptoms; E78.5 Hyperlipidemia, unspecified; I45.19 Other right bundle-branch block; D75.89 Other specified diseases of blood and blood-forming organs; D64.89 Other specified anemias; E87.6 Hypokalemia; M79.89 Other specified soft tissue disorders; K59.00 Constipation, unspecified; M25.422 Effusion, left elbow; R91.8 Other nonspecific abnormal finding of lung field; Z68.21 Body mass index [BMI] 21.0-21.9, adult; Z86.73 Personal history of transient ischemic attack (TIA), and cerebral infarction without residual deficits; Z87.891 Personal history of nicotine dependence; Z79.52 Long term (current) use of systemic steroids; Z79.51 Long term (current) use of inhaled steroids; Z79.899 Other long term (current) drug therapy; Z79.84 Long term (current) use of oral hypoglycemic drugs; Z78.9 Other specified health status; Z11.52 Encounter for screening for COVID-19
CPT/HCPCS: 36415; 71045; 71046; 71275; 76937; 80048; 80053; 80061; 81001; 82272; 82306; 83036; 83735; 83880; 84100; 84145; 84439; 84443; 84484; 85025; 85027; 85379; 85610; 85730; 86850; 86900; 86901; 87040; 87070; 87077; 87186; 87205; 87324; 87449; 87636; 92978; 93005; 93306; 93458; 93799; 93970; 94640; 94760; 96361; 96365; 96366; 96367; 96372; 96375; 99285